=== PATIENT | male | born 1940 | race Caucasian/White ===

== ENCOUNTER 2017-01-13 08:31 | Inpatient (IN) | payer OTHER ==
[~2017-01-13] VITALS: Ht 180.3 cm; Wt 81.9 kg
[~2017-01-13 08:31] MED LIST: ALBU1NEB10 NEB; ALBUAER19 INH; AMLO2.5T2 PO; ATRINSX NEB; BRVIN NEB; CITA40TA12 PO; CLOP1TAB5 PO; CRS/10 PO; FINA5TAB PO; FLUT0.0529; FURO20TA PO; GABA800T PO; GLIM2TAB2 PO; GLY/5 PO; GUAI1TAB55 PO; LISI20TA3 PO; LORA-741 PO; MONT1TAB3 PO; OXGN; PANT1TAB48 PO; PLMINSR25 NEB; PRED-301 PO; PRED10TA PO; SALI1SPR3 NAE; SPRIN/30 INH; WHEAPOW PO
--- NOTE | 2017-01-13 08:50 | EMERGENCY ROOM VISIT NOTE ---
History Report prepared by Yolie: Lucy Smith Under the Supervision of: Dr. Nj Horne M.D. First contact with patient: 08:32 Chief Complaint: RESPIRATORY PROBLEMS Stated Complaint: RESPIRATORY Nursing Triage Summary: pt here from [facility] via [facility]. pt just discharged from [facility] to [facility] yesterday with pneumonia or copd. pt has audible crackles. pt normally wears bipap at night, could not tolerate machine at [facility] so did not wear. upon ems arrival pt was 91% on 3 liters. pt was given duoneb, albuterol, and solumedrol. upon arrival to ed pt is 96% on 3 liters. pt states he feels he was released too soon from [facility] History of Present Illness The patient is a 76 year old male who presents to the Emergency Room with complaints of worsening respiratory problems beginning a couple of weeks ago. The patient reports having pneumonia and COPD and was just released from [place]. He states that this morning he woke up and was having difficulty breathing. He states that he is on Lasix and prednisone, and denies any recent changes in his medication. The patient denies having other symptoms. Source of History: patient Onset: couple of weeks ago Position: other (global) Quality: other (respiratory problems ) Timing: worsening Associated Symptoms: No fevers Review of Systems See HPI for pertinent positives & negatives. A total of 10 systems reviewed and were otherwise negative. 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 Surgical Problems: (1) H/O cervical spine surgery (2) History of aortic valve replacement (3) History of carpal tunnel surgery (4) History of lumbar surgery (5) S/P total knee arthroplasty Family History No pertinent family history Social History Smoking Status: Former Smoker Alcohol Use: none Current/Historical Medications Scheduled Acetylcysteine (Acetylcysteine), 3 ML INH BID Atorvastatin (Lipitor), 20 MG PO DAILYBD Budesonide (Pulmicort Respules 0.25MG/2ML), 0.25 MG INH DAILY Cholecalciferol (Vitamin D3), 6,000 UNITS PO DAILYBB Clopidogrel (Plavix), 75 MG PO DAILY Docusate Sodium (Docusate Sodium), 100 MG PO BID Ferrous Gluconate (Ferrous Gluconate), 324 MG PO BIDM Finasteride (Proscar), 5 MG PO DAILY Fluticasone Propionate (Nasal) (Flonase Allergy Relief), 2 SPRAY LISETTE DAILY Formoterol Fumarate (Perforomist), 20 MCG INH BID Furosemide (Lasix), 40 MG PO DAILY Glimepiride (Glimepiride), 2 MG PO BIDM Guaifenesin La (Guaifenesin Er), 600 MG PO Q12H Insulin Aspart (Novolog Flexpen), 1 DOSE SQ ACHS Levofloxacin (Levaquin), 750 MG PO DAILY Metoprolol Tartrate (Lopressor) (Lopressor), 25 MG PO Q12H Montelukast Sodium (Singulair), 10 MG PO QPM Nicotine (Nicoderm Cq 14MG Patch), 1 PATCH TD DAILY Pantoprazole (Protonix), 40 MG PO DAILYBB Paroxetine (Paxil), 20 MG PO DAILY Prednisone (Prednisone Tab), 20 MG PO UD Pregabalin (Lyrica), 150 MG PO BID Roflumilast (Daliresp), 500 MCG PO DAILY Senna/Docusate Sod (Senokot S), 1 TAB PO HS Umeclidinium [place] (Incruse Ellipta), 62.5 MCG INH DAILY Scheduled PRN Albuterol Hfa (Ventolin Hfa), 2 PUFFS INH Q4H PRN for Shortness of Breath Clonazepam (Klonopin), 0.5 MG PO Q8H PRN for Anxiety Ipratropium-Albuterol (Duoneb), 3 ML INH QID PRN for Shortness of Breath Allergies Coded Allergies: Aspirin (Verified Adverse Reaction, Intermediate, SEVERE GI PAIN, 01/13/17) Physical Exam Vital Signs Date Time Temp Pulse Resp B/P (MAP) Pulse Ox O2 Delivery O2 Flow Rate FiO2 01/13/17 11:00 88 16 118/68 95 Room Air 01/13/17 10:31 72 16 153/96 92 Nasal Cannula 2.0 01/13/17 09:41 77 18 171/79 93 Nasal Cannula 2.0 Non-Rebreather 01/13/17 09:29 83 22 95 Nasal Cannula 2.0 01/13/17 08:52 96 Nasal Cannula 2.0 01/13/17 08:52 96 Nasal Cannula 2.0 01/13/17 08:49 95 01/13/17 08:38 36.5 90 16 174/87 96 Nasal Cannula 2.0 Physical Exam GENERAL: Patient is a healthy-appearing well-nourished male HEAD: Normocephalic atraumatic EYES: Ocular movements intact pupils equal and react to light OROPHARYNX mucous membranes are moist no exudates present no erythema or edema present NECK: Supple no nuchal rigidity CHEST: Good equal expansion LUNGS: diffuse rales on exam CARDIAC: Normal S1 and S2 ABDOMEN: Soft nontender no guarding BACK: No CVA tenderness EXTREMITIES: No pain upon palpation normal muscle strength in all groups no clubbing cyanosis or edema NEURO: Patient is following commands and answering questions appropriately. Alert and oriented x3 Cranial Nerves 2-12 grossly intact Medical Decision & Procedures ER Provider Diagnostic Interpretation: X-ray results as stated below per interpretation by me and the radiologist: CHEST ONE VIEW PORTABLE CLINICAL HISTORY: Shortness of breath and cough COMPARISON STUDY: 12/17/2012 FINDINGS: There are postsurgical changes of a midline sternotomy. The right-sided PICC catheter has been removed. There is pulmonary emphysema. There are left mid to lower lung zone airspace opacities, suspicious for a pneumonia. Clinical and radiographic follow-up is recommended.[ IMPRESSION: 1. Emphysema 2. Patchy airspace opacities at the left lung base, suspicious for a pneumonia. Repeat imaging subsequent to treatment is recommended in follow-up. Electronically signed by: Sky Joyce M.D. 01/13/2017 8:56 AM Dictated Date/Time: 01/13/2017 8:54 AM Radiology results as stated below per my review and radiologist interpretation: (CHEST FOR PE) ANGIO WITH CLINICAL HISTORY: 76 years-old Male presenting with shortness of breath and clinical concern for pulmonary embolus. TECHNIQUE: Multidetector CT angiography of the chest was performed after administration of intravenous contrast. 3-D volumetric and/or maximum intensity projection (MIP) images were subsequently reconstructed for review. IV contrast: 119 mL of Optiray 320. A dose lowering technique was used consistent with the principles of ALARA (as low as reasonably achievable). COMPARISON: Chest x-ray performed earlier the same day. CT DOSE (mGy.cm): The estimated cumulative dose is 412.83 mGy.cm. FINDINGS: Finance Business Partner topogram: Median sternotomy wires. Pulmonary vasculature: The study is adequate for assessment of the pulmonary vascular tree. No filling defect within the pulmonary arteries to suggest embolus. Main pulmonary artery not enlarged. No flattening of the interventricular septum. No intracardiac filling defect. Remaining chest: On soft tissue windows, normal thyroid and thoracic inlet. No axillary, supraclavicular, hilar, or mediastinal lymphadenopathy. Atherosclerosis of the aortic arch and major branch vessels. Common origin of the innominate and left common carotid arteries. Normal heart size. Prosthetic aortic valve. No pericardial or pleural effusion. Cholecystectomy clips. Biliary ductal dilatation centrally both intrahepatic and involving the common duct, possibly a reservoir effect in the post cholecystectomy state. Pancreatic parenchymal calcifications may indicate chronic pancreatitis. On lung windows, moderate apical predominant emphysema. Dependent consolidation in the left lower lobe and along the major fissure in the left upper lobe. Numerous scattered nodular opacities also noted elsewhere in the left lower lobe and to a lesser degree in the lingula. Solid pulmonary nodule at the dependent portion of the right lower lobe measuring 13 mm (series 4 image 64). Minimal subpleural reticulation also noted in the dependent portions of the right lower lobe. Old calcified granuloma noted at the right apex. Debris noted in the trachea and bilateral main stem bronchi. Diffuse bronchial wall thickening. On bone windows, degenerative changes of the thoracic spine. Well-healed sternotomy. IMPRESSION: 1. No evidence of pulmonary embolus. 2. Findings most consistent with multifocal pneumonia predominant involving the left lower lobe and to a lesser degree the lingula. The dependent distribution in combination with significant debris in the trachea and bilateral mainstem bronchi could suggest aspiration pneumonia as etiology. 3. Moderate apical predominant emphysema with associated bronchial wall thickening. 4. Solid 13 mm pulmonary nodule at the right lower lobe may be another site of infection/pneumonia. However, follow-up after treatment to ensure resolution is recommended. Electronically signed by: Avel Raman M.D. 01/13/2017 10:56 AM Dictated Date/Time: 01/13/2017 10:47 AM Laboratory Results 01/13/17 09:04 Red Blood Count 5.21, Mean Corpuscular Volume 89.3, Mean Corpuscular Hemoglobin 29.8, Mean Corpuscular Hemoglobin Concent 33.3, Mean Platelet Volume 11.0 01/13/17 09:04 Test 01/13/17 09:04 01/13/17 11:40 White Blood Count 16.12 K/uL (4.8-10.8) Red Blood Count 5.21 M/uL (4.7-6.1) Hemoglobin 15.5 g/dL (14.0-18.0) Hematocrit 46.5 % (42-52) Mean Corpuscular Volume 89.3 fL (80-100) Mean Corpuscular Hemoglobin 29.8 pg (25-34) Mean Corpuscular Hemoglobin Concent 33.3 g/dl (32-36) Platelet Count 274 K/uL (130-400) Mean Platelet Volume 11.0 fL (7.4-10.4) RDW Standard Deviation 51.7 fL (36.4-46.3) RDW Coefficient of Variation 15.8 % (11.5-14.5) Neutrophils % (Manual) 82.6 % Lymphocytes % (Manual) 7.0 % Monocytes % (Manual) 8.7 % Myelocytes % 1.7 % Neutrophils # (Manual) 13.32 K/uL (1.4-6.5) Total Absolute Neutrophils 13.32 K/uL (1.4-6.5) Lymphocytes # (Manual) 1.13 K/uL (1.2-3.4) Total Absolute Lymphocytes 1.13 K/uL (1.2-3.4) Monocytes # (Manual) 1.40 K/uL (0.11-0.59) Myelocytes # 0.27 K/uL (0-0) Red Blood Cell Morphology Unremarkable Prothrombin Time 11.2 SECONDS (9.0-12.0) Prothromb Time International Ratio 1.0 (0.9-1.1) Anion Gap 7.0 mmol/L (3-11) Est Creatinine Clear Calc Drug Dose 62.7 ml/min Estimated GFR () 76.2 Estimated GFR (Non- 65.8 BUN/Creatinine Ratio 21.8 (10-20) Calcium Level 9.1 mg/dl (8.5-10.1) Total Bilirubin 0.6 mg/dl (0.2-1) Aspartate Amino Transf (AST/SGOT) 36 U/L (15-37) Alanine Aminotransferase (ALT/SGPT) 68 U/L (12-78) Alkaline Phosphatase 297 U/L (45-117) Total Creatine Kinase 20 U/L (39-308) Creatine Kinase MB 2.1 ng/ml (0.5-3.6) Creatine Kinase MB Ratio 10.5 (0-3.0) Troponin I 0.034 ng/ml (0-0.045) Pro-B-Type Natriuretic Peptide 441 pg/ml (0-900) Total Protein 6.5 gm/dl (6.4-8.2) Albumin 3.1 gm/dl (3.4-5.0) Globulin 3.4 gm/dl (2.5-4.0) Albumin/Globulin Ratio 0.9 (0.9-2) Urine Color YELLOW Urine Appearance CLEAR (CLEAR) Urine pH 6.0 (4.5-7.5) Urine Specific [place] 1.025 (1.000-1.030) Urine Protein NEG (NEG) Urine Glucose (UA) NEG (NEG) Urine Ketones NEG (NEG) Urine Occult Blood NEG (NEG) Urine Nitrite NEG (NEG) Urine Bilirubin NEG (NEG) Urine Urobilinogen NEG (NEG) Urine Leukocyte Esterase SMALL (NEG) Urine WBC (Auto) 1-5 /hpf (0-5) Urine RBC (Auto) 0-4 /hpf (0-4) Urine Hyaline Casts (Auto) 1-5 /lpf (0-5) Urine Epithelial Cells (Auto) 5-10 /lpf (0-5) Urine Bacteria (Auto) NEG (NEG) Labs reviewed by ED physician. Medications Administered Medications (Trade) Dose Ordered Sig/Aj Route Start Time Stop Time Status Last Admin Dose Admin Piperacillin Sod/ Tazobactam Sod (Zosyn Iv) 4.5 gm NOW STAT IV 01/13/17 09:01 01/13/17 09:03 DC 01/13/17 09:32 4.5 GM Vancomycin HCl 1000 mg/Sodium Chloride 270 ml @ 125 mls/hr NOW STAT IV 01/13/17 09:01 01/13/17 11:10 DC 01/13/17 10:29 125 MLS/HR Furosemide (Lasix Inj) 40 mg NOW STAT IV 01/13/17 09:01 01/13/17 09:03 DC 01/13/17 09:31 40 MG Levalbuterol (Xopenex 1.25MG/ 0.5ML Neb) 1.25 mg NOW STAT INH 01/13/17 09:01 01/13/17 09:03 DC 01/13/17 09:29 1.25 MG Levofloxacin (Levaquin / D5W) 750 mg NOW STAT IV 01/13/17 09:51 01/13/17 09:52 DC 01/13/17 13:06 750 MG ECG Indication: SOB/dyspnea Rate (beats per minute): 93 Rhythm: sinus rhythm Findings: RBBB, no acute ischemic change ED Course 0848: Past medical records reviewed. The patient was evaluated in room B4B. A complete history and physical examination was performed. 0901: Ordered Levalbuterol 1.25 mg INH, Furosemide 40 mg IV, Vancomycin HCl 1, 000 mg/Sodium Chloride 270 ml @ 125 mls/hr IV, Piperacillin Sod/Tazobactam Sod 4.5 gm IV. 0951: Ordered Levofloxacin 750 mg IV. 1106: I discussed the patient's case with Lorraine Bran PA-C, she has agreed to evaluate the patient for further management and care. Medical Decision Differential diagnosis: Etiologies such as infections, reactive airway disease, pneumonia, pneumothorax , COPD, CHF, cardiac ischemia, pulmonary embolism, musculoskeletal, gastrointestinal, as well as others were entertained. This is a 76-year-old male who presents emergency department after recently being released from [place]. The patient is still continue continuing to complain of shortness of breath and appears to have pneumonia on his chest x- ray. He was sent for CAT scan of the chest which did not show any evidence of PE. He was pancultured up started on Zosyn and Levaquin and vancomycin. He is also given an hour-long breathing treatment and Lasix. I did discuss the case with the hospitalist service who agreed to admit the patient. Patient was in agreement with the treatment plan. Medication Reconcilliation Current Medication List: was personally reviewed by me Blood Pressure Screening Patient's blood pressure: Elevated blood pressure Blood pressure disposition: Referred to PCP Consults Time Called: 1030 Consulting Physician: Lorraine Bran PA-C Returned Call: [phone] I discussed the patient's case with Lorraine Bran PA-C, she has agreed to evaluate the patient for further management and care. Impression Primary Impression: Pneumonia Scribe Attestation The scribe's documentation has been prepared under my direction and personally reviewed by me in its entirety. I confirm that the note above accurately reflects all work, treatment, procedures, and medical decision making performed by me. Departure Information Dispostion Being Evaluated By Hospitalist Referrals Mariah Resendez D.O. (PCP) Patient Instructions My [facility] Problem Qualifiers Primary Impression: Pneumonia Pneumonia type: due to unspecified organism Laterality: unspecified laterality Lung location: unspecified part of lung Qualified Codes: J18.9 - Pneumonia, unspecified organism
--- NOTE | 2017-01-13 08:57 | DIAGNOSTIC IMAGING REPORT ---
CHEST ONE VIEW PORTABLE CLINICAL HISTORY: Shortness of breath and cough COMPARISON STUDY: 12/17/2012 FINDINGS: There are postsurgical changes of a midline sternotomy. The right-sided PICC catheter has been removed. There is pulmonary emphysema. There are left mid to lower lung zone airspace opacities, suspicious for a pneumonia. Clinical and radiographic follow-up is recommended.[ IMPRESSION: 1. Emphysema 2. Patchy airspace opacities at the left lung base, suspicious for a pneumonia. Repeat imaging subsequent to treatment is recommended in follow-up. Electronically signed by: Sky Joyce M.D. 01/13/2017 8:56 AM Dictated Date/Time: 01/13/2017 8:54 AM
[2017-01-13] MEDS ORDERED: FUROSEMIDE 40 MG/4 ML VIAL IV STA (09:01)
[2017-01-13] MEDS ORDERED: VANCOMYCIN INJ 1,000 MG in SODIUM CHLORIDE 0.9% 250ML 250 ML IV STA (09:01)
[2017-01-13] MEDS ORDERED: LEVALBUTEROL 1.25MG/0.5ML NEB INH STA (09:01)
[2017-01-13] MEDS ORDERED: PIPERACILLIN/TAZOBACTAM 4.5 GM/100ML D5W IV STA (09:01)
[2017-01-13] MEDS ORDERED: OPTIRAY 320 IV PRN (09:15)
[2017-01-13] MEDS ORDERED: ACET20SO4 INH (09:22)
[2017-01-13] MEDS ORDERED: PLMINSR25 INH (09:22)
[2017-01-13] MEDS ORDERED: FRS/40 PO (09:22)
[2017-01-13] MEDS ORDERED: FLUT0.15 NAE (09:22)
[2017-01-13] MEDS ORDERED: CHOL2000 PO (09:22)
[2017-01-13] MEDS ORDERED: FORM1NEB INH (09:22)
[2017-01-13] MEDS ORDERED: FERR325T18 PO (09:22)
[2017-01-13] MEDS ORDERED: FINA5TAB PO (09:22)
[2017-01-13] MEDS ORDERED: CLOP1TAB15 PO (09:22)
[2017-01-13] MEDS ORDERED: SENN-65 PO (09:22)
[2017-01-13] MEDS ORDERED: GLIM2TAB2 PO (09:22)
[2017-01-13] MEDS ORDERED: ATOR-22 PO (09:22)
[2017-01-13] MEDS ORDERED: GUAI1TAB75 PO (09:22)
[2017-01-13] MEDS ORDERED: DOCU100C31 PO (09:22)
[2017-01-13 09:29] VITALS: PULSE 83; O2SAT 95
[2017-01-13] MEDS ORDERED: PRD5 PO (09:32)
[2017-01-13] MEDS ORDERED: PRED20TA2 PO (09:32)
[2017-01-13] MEDS ORDERED: IPRASOL4 INH (09:32)
[2017-01-13] MEDS ORDERED: PRED10TA PO (09:32)
[2017-01-13] MEDS ORDERED: MONT1TAB3 PO (09:32)
[2017-01-13] MEDS ORDERED: VNTHFA/IN INH (09:32)
[2017-01-13] MEDS ORDERED: LEVO-17 PO (09:32)
[2017-01-13] MEDS ORDERED: METO25TA56 PO (09:32)
[2017-01-13] MEDS ORDERED: NVLGI/PEN SQ (09:32)
[2017-01-13] MEDS ORDERED: PANT1TAB48 PO (09:32)
[2017-01-13] MEDS ORDERED: NICO14DI31 TD (09:32)
[2017-01-13] MEDS ORDERED: PREG1CAP28 PO (09:32)
[2017-01-13] MEDS ORDERED: ROFL1TAB5 PO (09:32)
[2017-01-13] MEDS ORDERED: PARO1TAB27 PO (09:32)
[2017-01-13] MEDS ORDERED: CLON0.5T3 PO (09:32)
[2017-01-13] MEDS ORDERED: UMEC1INH INH (09:32)
[2017-01-13 09:38] LABS: HEMATOCRIT 46.5 % (42-52); MEAN CELL VOLUME 89.3 fL (80-100); MEAN CORPUSCULAR HEMOGLOBIN 29.8 pg (25-34); MEAN CORPUSCULAR HGB CONC 33.3 g/dl (32-36); PLATELET COUNT 274 K/uL (130-400); RED BLOOD COUNT 5.21 M/uL (4.7-6.1); WHITE BLOOD COUNT 16.12 K/uL (4.8-10.8)
[2017-01-13] MEDS ORDERED: LEVAQUIN 750MG / 150ML D5W IV STA (09:51)
[2017-01-13 09:55] LABS: PROTHROMBIN TIME (PATIENT) 11.2 SECONDS (9.0-12.0)
[2017-01-13 09:57] LABS: BUN/CREATININE RATIO 21.8 (10-20); CALCIUM 9.1 mg/dl (8.5-10.1); CREATININE 1.1 mg/dl (0.60-1.40); POTASSIUM 3.6 mmol/L (3.5-5.1)
[2017-01-13 10:02] LABS: ALB/GLOB RATIO 0.9 (0.9-2); CKMB/CK RATIO 10.5 (0-3.0)
[2017-01-13 10:14] LABS: COMPLETE YES; LYMPH ABS # 1.13 K/uL (1.2-3.4); MYELOCYTE % 1.7 %; NEUTROPHILS % 82.6 %
--- NOTE | 2017-01-13 10:57 | DIAGNOSTIC IMAGING REPORT ---
(CHEST FOR PE) ANGIO WITH CLINICAL HISTORY: 76 years-old Male presenting with shortness of breath and clinical concern for pulmonary embolus. TECHNIQUE: Multidetector CT angiography of the chest was performed after administration of intravenous contrast. 3-D volumetric and/or maximum intensity projection (MIP) images were subsequently reconstructed for review. IV contrast: 119 mL of Optiray 320. A dose lowering technique was used consistent with the principles of ALARA (as low as reasonably achievable). COMPARISON: Chest x-ray performed earlier the same day. CT DOSE (mGy.cm): The estimated cumulative dose is 412.83 mGy.cm. FINDINGS: Job Service Consultant topogram: Median sternotomy wires. Pulmonary vasculature: The study is adequate for assessment of the pulmonary vascular tree. No filling defect within the pulmonary arteries to suggest embolus. Main pulmonary artery not enlarged. No flattening of the interventricular septum. No intracardiac filling defect. Remaining chest: On soft tissue windows, normal thyroid and thoracic inlet. No axillary, supraclavicular, hilar, or mediastinal lymphadenopathy. Atherosclerosis of the aortic arch and major branch vessels. Common origin of the innominate and left common carotid arteries. Normal heart size. Prosthetic aortic valve. No pericardial or pleural effusion. Cholecystectomy clips. Biliary ductal dilatation centrally both intrahepatic and involving the common duct, possibly a reservoir effect in the post cholecystectomy state. Pancreatic parenchymal calcifications may indicate chronic pancreatitis. On lung windows, moderate apical predominant emphysema. Dependent consolidation in the left lower lobe and along the major fissure in the left upper lobe. Numerous scattered nodular opacities also noted elsewhere in the left lower lobe and to a lesser degree in the lingula. Solid pulmonary nodule at the dependent portion of the right lower lobe measuring 13 mm (series 4 image 64). Minimal subpleural reticulation also noted in the dependent portions of the right lower lobe. Old calcified granuloma noted at the right apex. Debris noted in the trachea and bilateral main stem bronchi. Diffuse bronchial wall thickening. On bone windows, degenerative changes of the thoracic spine. Well-healed sternotomy. IMPRESSION: 1. No evidence of pulmonary embolus. 2. Findings most consistent with multifocal pneumonia predominant involving the left lower lobe and to a lesser degree the lingula. The dependent distribution in combination with significant debris in the trachea and bilateral mainstem bronchi could suggest aspiration pneumonia as etiology. 3. Moderate apical predominant emphysema with associated bronchial wall thickening. 4. Solid 13 mm pulmonary nodule at the right lower lobe may be another site of infection/pneumonia. However, follow-up after treatment to ensure resolution is recommended. Electronically signed by: Avel Raman M.D. 01/13/2017 10:56 AM Dictated Date/Time: 01/13/2017 10:47 AM
[2017-01-13] MEDS ORDERED: ACETAMINOPHEN 325 MG TAB PO PRN (11:45)
[2017-01-13] MEDS ORDERED: ONDANSETRON INJ 2 MG/ML 2 ML VIAL IV PRN (11:45)
[2017-01-13 11:55] VITALS: O2SAT 95; BMI 25.8
[2017-01-13] MEDS ORDERED: GLUCOSE 40% GEL 15 GM TUBE PO PRN (12:00)
[2017-01-13] MEDS ORDERED: GLUCOSE 10 TABS/TUBE PO PRN (12:00)
[2017-01-13] MEDS ORDERED: ALBUTEROL HFA 8 GM INHALER INH PRN (12:00)
[2017-01-13] MEDS: ALBUT/IPRATROP 3MG/0.5MG NEB 3 ML VIAL INH SCH ×3 (12:00→19:27)
[2017-01-13] MEDS ORDERED: GLUCAGON FOR INJ 1 MG VIAL SQ PRN (12:00)
[2017-01-13] MEDS ORDERED: DEXTROSE 50% 50 ML SYR IV PRN (12:00)
[2017-01-13 12:08] LABS: URINE APPEARANCE CLEAR (CLEAR); URINE BILIRUBIN NEG (NEG); URINE COLOR YELLOW; URINE NITRITE NEG (NEG); URINE SPECIFIC GRAVITY 1.025 (1.000-1.030); UROBILINOGEN NEG (NEG)
[2017-01-13 12:14] LABS: MANUAL MICROSCOPIC REQUIRED? NO; REVIEW REQ? NO
[2017-01-13] MEDS ORDERED: METHYLPREDNISOLONE IV 40 MG in SYRINGE 0 ML IV ONE (12:15)
[2017-01-13] MEDS ORDERED: LEVAQUIN 750MG / 150ML D5W ONE (13:01)
[2017-01-13] MEDS: CLONAZEPAM 0.5 MG TAB PO PRN ×2 (13:20→20:31)
[2017-01-13] MEDS ORDERED: VANCOMYCIN CONSULT ACTIVE SCH (13:54)
[2017-01-13] MEDS ORDERED: PIPERACILL/TAZOBAC CONSULT ACTIVE SCH (13:56)
[2017-01-13 14:20] VITALS: BP 149/93; PULSE 103; TEMP 36.6; O2SAT 94
--- NOTE | 2017-01-13 14:32 | Pharmacy Progress Note ---
Pharmacy Antibiotic Consult Date of Service: Jan 13, 2017. Pharmacy Dosing Scope Pharmacy is consulted to initiate vancomycin IV dosing therapy, order appropriate labs and adjust drug dose/frequency. Subjective The patient is a 76 year old male admitted on Jan 13, 2017 at 11:49. Objective Height (Feet): 5 Height (Inches): 11.00 Weight (Kilograms): 84.000 Lab Results (24hrs): Test 01/13/17 09:04 01/13/17 11:40 White Blood Count 16.12 K/uL (4.8-10.8) Red Blood Count 5.21 M/uL (4.7-6.1) Hemoglobin 15.5 g/dL (14.0-18.0) Hematocrit 46.5 % (42-52) Mean Corpuscular Volume 89.3 fL (80-100) Mean Corpuscular Hemoglobin 29.8 pg (25-34) Mean Corpuscular Hemoglobin Concent 33.3 g/dl (32-36) Platelet Count 274 K/uL (130-400) Mean Platelet Volume 11.0 fL (7.4-10.4) RDW Standard Deviation 51.7 fL (36.4-46.3) RDW Coefficient of Variation 15.8 % (11.5-14.5) Neutrophils % (Manual) 82.6 % Lymphocytes % (Manual) 7.0 % Monocytes % (Manual) 8.7 % Myelocytes % 1.7 % Neutrophils # (Manual) 13.32 K/uL (1.4-6.5) Total Absolute Neutrophils 13.32 K/uL (1.4-6.5) Lymphocytes # (Manual) 1.13 K/uL (1.2-3.4) Total Absolute Lymphocytes 1.13 K/uL (1.2-3.4) Monocytes # (Manual) 1.40 K/uL (0.11-0.59) Myelocytes # 0.27 K/uL (0-0) Red Blood Cell Morphology Unremarkable Prothrombin Time 11.2 SECONDS (9.0-12.0) Prothromb Time International Ratio 1.0 (0.9-1.1) Sodium Level 143 mmol/L (136-145) Potassium Level 3.6 mmol/L (3.5-5.1) Chloride Level 103 mmol/L (98-107) Carbon Dioxide Level 33 mmol/L (21-32) Anion Gap 7.0 mmol/L (3-11) Blood Urea Nitrogen 24 mg/dl (7-18) Creatinine 1.10 mg/dl (0.60-1.40) Est Creatinine Clear Calc Drug Dose 62.7 ml/min Estimated GFR () 76.2 Estimated GFR (Non- 65.8 BUN/Creatinine Ratio 21.8 (10-20) Random Glucose 82 mg/dl (70-99) Calcium Level 9.1 mg/dl (8.5-10.1) Total Bilirubin 0.6 mg/dl (0.2-1) Aspartate Amino Transf (AST/SGOT) 36 U/L (15-37) Alanine Aminotransferase (ALT/SGPT) 68 U/L (12-78) Alkaline Phosphatase 297 U/L (45-117) Total Creatine Kinase 20 U/L (39-308) Creatine Kinase MB 2.1 ng/ml (0.5-3.6) Creatine Kinase MB Ratio 10.5 (0-3.0) Troponin I 0.034 ng/ml (0-0.045) Pro-B-Type Natriuretic Peptide 441 pg/ml (0-900) Total Protein 6.5 gm/dl (6.4-8.2) Albumin 3.1 gm/dl (3.4-5.0) Globulin 3.4 gm/dl (2.5-4.0) Albumin/Globulin Ratio 0.9 (0.9-2) Urine Color YELLOW Urine Appearance CLEAR (CLEAR) Urine pH 6.0 (4.5-7.5) Urine Specific [place] 1.025 (1.000-1.030) Urine Protein NEG (NEG) Urine Glucose (UA) NEG (NEG) Urine Ketones NEG (NEG) Urine Occult Blood NEG (NEG) Urine Nitrite NEG (NEG) Urine Bilirubin NEG (NEG) Urine Urobilinogen NEG (NEG) Urine Leukocyte Esterase SMALL (NEG) Urine WBC (Auto) 1-5 /hpf (0-5) Urine RBC (Auto) 0-4 /hpf (0-4) Urine Hyaline Casts (Auto) 1-5 /lpf (0-5) Urine Epithelial Cells (Auto) 5-10 /lpf (0-5) Urine Bacteria (Auto) NEG (NEG) Assessment & Plan Assessment * 76 yo M discharged yesterday from [facility] now admitted here with HAP / aspiration PNA. Currently receiving Zosyn, vancomycin. * At [place] 01/05-01/12 for COPD exacerbation / PNA. Received ceftriaxone/ azithromycin as an inpatient and was discharged on levofloxacin po * SCr at/near baseline with eCrCL ~ 63 mL/min equating to an estimated vancomycin t1/2 of 12 hr * Goal vancomycin trough 15-20 mcg/mL * Vancomycin 1000 mg (12 mg/kg) administered in ED. Will start ongoing maintenance vancomycin significantly sooner than usual 2nd lower loading dose * Maintenance dose vancomycin at ~15 mg/kg IV q12h * Trough prior to 4th dose of current regimen Plan * Vancomycin 1250 mg IV q12h * Trough 01/15 @ 0330 Pharmacy will continue to follow and will adjust dose/frequency as necessary. Thank you
[2017-01-13] MEDS ORDERED: PIPERACILL/TAZOBAC IV 3.375 GM in DEXTROSE 5% 100ML IV ONE (15:15)
--- NOTE | 2017-01-13 15:16 | History and Physical ---
History & Physical Date & Time of Service: Jan 13, 2017 at 12:12 Chief Complaint: Respiratory Primary Care Physician: Mariah Resendez D.O. History of Present Illness Source: patient, clinic records, usp This is a 76 y/o male with PMH of chronic respiratory failure due to severe COPD , idiopathic sleep related nonobstructive alveolar hypoventilation, hx grade I diastolic dysfunction, hx bicuspid AV with s/p bioprosthetic AVR 03/2014, HTN , DM type 2, anxiety, and other problems listed below who presents to the ED for shortness of breath. Patient was recently admitted to [facility] from 01/05/17 through 01/12/17 (yesterday) for COPD exacerbation due to left upper and lower lobe pneumonia. He was treated with IV ceftriaxone and azithromycin, IV Solu-Medrol, and nebulizer treatments. He tested positive for parainfluenza virus. He was seen by pulmonology. He used BiPAP PRN. Usually on BiPAP HS.Was also seen by psych for increased anxiety and meds were adjusted. Was discharged to [facility] yesterday on Levaquin and prednisone taper. His lungs were clear yesterday per discharge summary and patient states he was feeling better yesterday. Then this morning he became SOB while at rest and was sent to the ED. Also admits to ROSALES and orthopnea. Patient reports feeling better after Xopenex neb in ER. He was also treated with IV Zosyn, Levaquin, vancomycin, and IV Lasix 40 mg. He reports cough has been improving. Sputum is mostly clear but sometimes green. Has associated rhinorrhea. Reports poor PO intake due to low appetite. Denies swallowing difficulty or kya aspiration. Denies fever, chills, chest pain, N/V/D, dysuria, LE edema. Past Medical/Surgical History Medical Problems: (1) Anxiety Status: Chronic (2) BPH (benign prostatic hyperplasia) Status: Chronic (3) Cerebrovascular disease Status: Chronic (4) Chronic pain syndrome Status: Chronic (5) Chronic respiratory failure with hypoxia Status: Chronic (6) COPD, severe Permanent Comment: FEV1 41% in 12/2010 Status: Chronic (7) Depression Status: Chronic (8) Diabetic neuropathy Status: Chronic (9) DM type 2 (diabetes mellitus, type 2) Status: Chronic (10) Dyslipidemia Status: Chronic (11) History of bladder cancer Status: Chronic (12) Hypertension Status: Chronic (13) Idiopathic sleep related nonobstructive alveolar hypoventilation Status: Chronic (14) Mild diastolic dysfunction Permanent Comment: grade I diastolic dysfunction on 2011 [facility] Status: Chronic (15) Peptic ulcer disease Status: Chronic (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 Goodwin, [facility] Status: Chronic (3) History of carpal tunnel surgery Status: Chronic (4) History of lumbar surgery Status: Chronic (5) S/P total knee arthroplasty Permanent Comment: bilateral Status: Chronic Family History No pertinent family history Social History Smoking Status: Former Smoker (quit in 1999. prior 1-1.5 ppd x 20 years) Alcohol Use: none Drug Use: none Housing status: other ([facility]) Immunizations History of Influenza Vaccine: No History of Tetanus Vaccine?: Yes History of Pneumococcal: Yes History of Hepatitis B Vaccine: No Multi-Drug Resistant Organisms History of MDRO: Yes Type of MDRO: MRSA Allergies Coded Allergies: Aspirin (Verified Adverse Reaction, Intermediate, SEVERE GI PAIN, 01/13/17) Home Medications Scheduled Acetylcysteine (Acetylcysteine), 3 ML INH BID Atorvastatin (Lipitor), 20 MG PO DAILYBD Budesonide (Pulmicort Respules 0.25MG/2ML), 0.25 MG INH DAILY Cholecalciferol (Vitamin D3), 6,000 UNITS PO DAILYBB Clopidogrel (Plavix), 75 MG PO DAILY Docusate Sodium (Docusate Sodium), 100 MG PO BID Ferrous Gluconate (Ferrous Gluconate), 324 MG PO BIDM Finasteride (Proscar), 5 MG PO DAILY Fluticasone Propionate (Nasal) (Flonase Allergy Relief), 2 SPRAY LISETTE DAILY Formoterol Fumarate (Perforomist), 20 MCG INH BID Furosemide (Lasix), 40 MG PO DAILY Glimepiride (Glimepiride), 2 MG PO BIDM Guaifenesin La (Guaifenesin Er), 600 MG PO Q12H Insulin Aspart (Novolog Flexpen), 1 DOSE SQ ACHS Levofloxacin (Levaquin), 750 MG PO DAILY Metoprolol Tartrate (Lopressor) (Lopressor), 25 MG PO Q12H Montelukast Sodium (Singulair), 10 MG PO QPM Nicotine (Nicoderm Cq 14MG Patch), 1 PATCH TD DAILY Pantoprazole (Protonix), 40 MG PO DAILYBB Paroxetine (Paxil), 20 MG PO DAILY Prednisone (Prednisone Tab), 20 MG PO UD Pregabalin (Lyrica), 150 MG PO BID Roflumilast (Daliresp), 500 MCG PO DAILY Senna/Docusate Sod (Senokot S), 1 TAB PO HS Umeclidinium [place] (Incruse Ellipta), 62.5 MCG INH DAILY Scheduled PRN Albuterol Hfa (Ventolin Hfa), 2 PUFFS INH Q4H PRN for Shortness of Breath Clonazepam (Klonopin), 0.5 MG PO Q8H PRN for Anxiety Ipratropium-Albuterol (Duoneb), 3 ML INH QID PRN for Shortness of Breath Review of Systems Ten systems reviewed and negative except as noted in HPI. Physical Exam Vital Signs Date Time Temp Pulse Resp B/P (MAP) Pulse Ox O2 Delivery O2 Flow Rate FiO2 01/13/17 12:06 89 16 144/98 95 Room Air 01/13/17 11:00 88 16 118/68 95 Room Air 01/13/17 10:31 72 16 153/96 92 Nasal Cannula 2.0 01/13/17 09:41 77 18 171/79 93 Nasal Cannula 2.0 Non-Rebreather 01/13/17 09:29 83 22 95 Nasal Cannula 2.0 01/13/17 08:52 96 Nasal Cannula 2.0 01/13/17 08:52 96 Nasal Cannula 2.0 01/13/17 08:49 95 01/13/17 08:38 36.5 90 16 174/87 96 Nasal Cannula 2.0 General Appearance: WD/WN, + pertinent finding (alert 76 year old male, appears acutely ill, lying in bed, not in distress) Head: normocephalic, atraumatic Eyes: normal inspection, PERRL, EOMI, sclerae normal ENT: pharynx normal, + pertinent finding (hard of hearing) Neck: supple, trachea midline Respiratory/Chest: no respiratory distress, no accessory muscle use, + rales ( diffuse bilateral), + wheezing, + pertinent finding (+ upper respiratory rattling. speaks in short sentences. saturating well on 2 liters NC. ) Cardiovascular: regular rate, rhythm, normal peripheral pulses Abdomen/GI: normal bowel sounds, non tender, soft Extremities/Musculoskelatal: no calf tenderness, normal capillary refill, no pedal edema Neurologic/Psych: alert, normal mood/affect, oriented x 3, + pertinent finding (no focal deficit on gross examination) Skin: normal color, warm/dry Diagnostics Laboratory Results Results Past 24 Hours Test 01/13/17 09:04 01/13/17 11:40 Range/Units White Blood Count 16.12 4.8-10.8 K/uL Red Blood Count 5.21 4.7-6.1 M/uL Hemoglobin 15.5 14.0-18.0 g/dL Hematocrit 46.5 42-52 % Mean Corpuscular Volume 89.3 80-100 fL Mean Corpuscular Hemoglobin 29.8 25-34 pg Mean Corpuscular Hemoglobin Concent 33.3 32-36 g/dl Platelet Count 274 130-400 K/uL Mean Platelet Volume 11.0 7.4-10.4 fL RDW Standard Deviation 51.7 36.4-46.3 fL RDW Coefficient of Variation 15.8 11.5-14.5 % Neutrophils % (Manual) 82.6 % Lymphocytes % (Manual) 7.0 % Monocytes % (Manual) 8.7 % Myelocytes % 1.7 % Neutrophils # (Manual) 13.32 1.4-6.5 K/uL Total Absolute Neutrophils 13.32 1.4-6.5 K/uL Lymphocytes # (Manual) 1.13 1.2-3.4 K/uL Total Absolute Lymphocytes 1.13 1.2-3.4 K/uL Monocytes # (Manual) 1.40 0.11-0.59 K/uL Myelocytes # 0.27 0-0 K/uL Red Blood Cell Morphology Unremarkable Prothrombin Time 11.2 9.0-12.0 SECONDS Prothromb Time International Ratio 1.0 0.9-1.1 Sodium Level 143 136-145 mmol/L Potassium Level 3.6 3.5-5.1 mmol/L Chloride Level 103 98-107 mmol/L Carbon Dioxide Level 33 21-32 mmol/L Anion Gap 7.0 3-11 mmol/L Blood Urea Nitrogen 24 7-18 mg/dl Creatinine 1.10 0.60-1.40 mg/dl Est Creatinine Clear Calc Drug Dose 62.7 ml/min Estimated GFR () 76.2 Estimated GFR (Non- 65.8 BUN/Creatinine Ratio 21.8 10-20 Random Glucose 82 70-99 mg/dl Calcium Level 9.1 8.5-10.1 mg/dl Total Bilirubin 0.6 0.2-1 mg/dl Aspartate Amino Transf (AST/SGOT) 36 15-37 U/L Alanine Aminotransferase (ALT/SGPT) 68 12-78 U/L Alkaline Phosphatase 297 45-117 U/L Total Creatine Kinase 20 39-308 U/L Creatine Kinase MB 2.1 0.5-3.6 ng/ml Creatine Kinase MB Ratio 10.5 0-3.0 Troponin I 0.034 0-0.045 ng/ml Pro-B-Type Natriuretic Peptide 441 0-900 pg/ml Total Protein 6.5 6.4-8.2 gm/dl Albumin 3.1 3.4-5.0 gm/dl Globulin 3.4 2.5-4.0 gm/dl Albumin/Globulin Ratio 0.9 0.9-2 Microbiology Results 01/13/17 Blood Culture, Received Pending 01/13/17 Blood Culture, Received Pending Diagnostic Radiology CHEST ONE VIEW PORTABLE IMPRESSION: 1. Emphysema 2. Patchy airspace opacities at the left lung base, suspicious for a pneumonia. Repeat imaging subsequent to treatment is recommended in follow-up. (CHEST FOR PE) ANGIO WITH IMPRESSION: 1. No evidence of pulmonary embolus. 2. Findings most consistent with multifocal pneumonia predominant involving the left lower lobe and to a lesser degree the lingula. The dependent distribution in combination with significant debris in the trachea and bilateral mainstem bronchi could suggest aspiration pneumonia as etiology. 3. Moderate apical predominant emphysema with associated bronchial wall thickening. 4. Solid 13 mm pulmonary nodule at the right lower lobe may be another site of infection/pneumonia. However, follow-up after treatment to ensure resolution is recommended. EKG poor data quality, possible sinus rhythm, premature supraventricular complexes, RBBB, T wave abnormality, consider lateral ischemia, when compared to prior EKG in 2012 T wave inversion is more evident in anterolateral leads, premature supraventricular complexes now present, as confirmed by cardiology read Impression Assessment and Plan SHORTNESS OF BREATH CHRONIC HYPOXIC RESPIRATORY FAILURE Due to COPD exacerbation secondary to multifocal pneumonia, health care associated, possible aspiration Has underlying severe COPD and idiopathic sleep related nonobstructive alveolar hypoventilation Afebrile; + leukocytosis WBC 16K (steroids likely contributing); no sign of sepsis Recently treated at [facility] for COPD exacerbation, left upper and lower lobe pneumonia, tested + for parainfluenza virus; treated with ceftriaxone , azithromycin, IV Solu-Medrol, nebs, BiPAP PRN; seen by pulmonology; discharged 01/12/17 on Levaquin and prednisone taper CTA negative for PE, +multifocal pneumonia left lower lobe and to a lesser degree the lingula. The dependent distribution in combination with significant debris in the trachea and bilateral mainstem bronchi could suggest aspiration pneumonia as etiology. + emphysema and bronchial wall thickening, + 13 mm pulm nodule vs. pneumonia RLL Treated with empiric IV abx in ER- Zosyn, Vancomycin, Levaquin; will continue with Zosyn and Vancomycin Blood cultures pending; check sputum culture; MRSA nasal swab IV Solu-Medrol 40 mg TID; Duoneb QID and PRN Continue budesonide and formoterol nebs, acetylcysteine, Incruse Ellipta inhaler , Singulair, Daliresp Speech evaluation requested; aspiration precautions Consult pulmonology Continue chronic O2 2 liters nasal cannula, BiPAP HS HX MILD DIASTOLIC DYSFUNCTION/ HX S/P AVR 03/201414 Grade I diastolic dysfunction seen on 2011 echo; 03/2014 echo showed EF 65-69%, diastolic function not assessed; echo 07/2015 was technically limited Thought to be fluid overloaded in ER- given Lasix 40 mg IV; however no evidence of pulm edema on imaging, pro-BNP WNL; not overtly fluid overloaded on exam Continue home dose of Lasix 40 mg PO daily Consider checking echo, this was ordered at [facility] but no results in Epic HYPERTENSION BP is elevated intermittently Continue metoprolol DM TYPE 2 A1c 7.3 in 10/2016 Hold glimepiride Novolog sliding scale CEREBROVASCULAR DISEASE Continue Plavix, statin ANXIETY/ DEPRESSION Controlled currently; meds recently adjusted by psychiatry at [facility] Continue Paxil and PRN Klonopin ? PULMONARY NODULE CTA chest- Solid 13 mm pulmonary nodule at the right lower lobe may be another site of infection/pneumonia. However, follow-up after treatment to ensure resolution is recommended. DVT PROPHYLAXIS Lovenox SQ CODE STATUS DNR per my discussion with the patient. Does not want CPR in case of cardiac arrest. However if pulmonary status worsens he states he would be acceptable to being intubated and going on a ventilator temporarily. Does not want to be on a ventilator for prolonged time. Daughter Zulma is POA ([phone]). DISPO Admission med/ surg Presented from [facility] PT, OT, social service consults requested Patient seen in collaboration with Dr. Love. Please see his addendum. Attending Addendum Pt was seen and examined. Agreed with Rubi ALVARADO assessment and plan. 76 y/o male with PMH of chronic respiratory failure due to severe COPD, idiopathic sleep related nonobstructive alveolar hypoventilation, hx grade I diastolic dysfunction, hx bicuspid AV with s/p bioprosthetic AVR 03/2014, HTN, DM type 2, anxiety, recently discharged at [place] for pnemonia presents to the ED for worsening shortness of breath. General- No acute distress Head- atraumatic Eyes- PERRL, EOMI ENT- oropharynx clear Neck- supple, no JVD Lungs- crackles Heart- regular rhythm Abdomen- normal bowel sounds, soft, nontender SHORTNESS OF BREATH CHRONIC HYPOXIC RESPIRATORY FAILURE Due to COPD exacerbation secondary to multifocal pneumonia, health care associated, possible aspiration Has underlying severe COPD and idiopathic sleep related nonobstructive alveolar hypoventilation Recently discharge from [facility] for COPD exacerbation, left upper and lower lobe pneumonia, tested + for parainfluenza virus; treated with ceftriaxone, azithromycin, IV Solu-Medrol, nebs, BiPAP PRN; seen by pulmonology ; and was d/c on Levaquin and prednisone taper CTA chest showed multifocal pneumonia left lower lobe and to a lesser degree the lingula. Will start on IV Zosyn, vanco Continue IV Solu-Medrol 40 mg TID and Duoneb QID On budesonide and formoterol nebs, acetylcysteine, Incruse Ellipta inhaler, Singulair, Daliresp pulmonology consulted will consult speech for aspiration risk Continue chronic O2 2 liters nasal cannula, BiPAP HS Lab, imaging reviewed Please refer to Rubi ALVARADO documentation for other problems. Raphael Love MD VTE Prophylaxis VTE Risk Assessment Done? Y/N: Yes Risk Level: Moderate
[2017-01-13 16:00] VITALS: O2SAT 94
[2017-01-13 16:22] VITALS: PULSE 85; O2SAT 96
[2017-01-13] MEDS: VANCOMYCIN INJ 1,250 MG in SODIUM CHLORIDE 0.9% 250ML 250 ML IV SCH (16:56)
[2017-01-13] MEDS: ATORVASTATIN 20 MG TAB PO SCH (16:59)
[2017-01-13] MEDS: FERROUS GLUCONATE 324 MG TAB PO SCH (18:14)
[2017-01-13] MEDS: INSULIN ASPART 100 UNITS/ML 3 ML PEN SC SCH ×2 (18:20→20:43)
[2017-01-13] MEDS: FORMOTEROL FUMA NEBULIZER SOLN 20 MCG/2 ML VIAL INH SCH (19:29)
[2017-01-13 19:30] VITALS: PULSE 89; O2SAT 95
[2017-01-13] MEDS: ACETYLCYSTEINE 20% INHAL SOLN ***DISPENSED BY RESP. INH SCH (19:30)
[2017-01-13] MEDS: BUDESONIDE 0.25 MG/2 ML VIAL (PULMICORT) INH SCH (19:30)
[2017-01-13] MEDS: TRAMADOL HCL 50 MG TAB PO PRN (20:30)
[2017-01-13] MEDS: PREGABALIN 150 MG CAP PO SCH (20:31)
[2017-01-13] MEDS: GUAIFENESIN 600 MG TABCR PO SCH (20:31)
[2017-01-13] MEDS: DOCUSATE SODIUM/SENNA 50/8.6MG TAB PO SCH (20:32)
[2017-01-13] MEDS: METOPROLOL TARTRATE 25 MG TAB PO SCH (20:32)
[2017-01-13] MEDS: MONTELUKAST SOD 10 MG TAB PO SCH (20:33)
[2017-01-13] MEDS: ENOXAPARIN 40 MG/0.4 ML SYR SQ SCH (20:34)
[2017-01-13] MEDS: DOCUSATE SODIUM 100 MG CAP PO SCH (20:34)
[2017-01-13] MEDS: METHYLPREDNISOLONE IV 40 MG in SYRINGE 0 ML IV SCH (21:53)
[2017-01-13] MEDS: PIPERACILL/TAZOBAC IV 3.375 GM in DEXTROSE 5% 100ML IV SCH (23:23)
[2017-01-14] VITALS (8 sets, daily range): BP systolic 119–161; BP diastolic 73–94; PULSE 51–86; TEMP 36.1–36.8; O2SAT 92–98; Ht 180.3 cm; Wt 81.9 kg
[2017-01-14] MEDS: VANCOMYCIN INJ 1,250 MG in SODIUM CHLORIDE 0.9% 250ML 250 ML IV SCH ×2 (04:01→16:31)
[2017-01-14 05:58] LABS: HEMATOCRIT 42.8 % (42-52); MEAN CELL VOLUME 88.2 fL (80-100); MEAN CORPUSCULAR HEMOGLOBIN 29.3 pg (25-34); MEAN CORPUSCULAR HGB CONC 33.2 g/dl (32-36); MEAN PLATELET VOLUME 10.7 fL (7.4-10.4); PLATELET COUNT 232 K/uL (130-400); RED BLOOD COUNT 4.85 M/uL (4.7-6.1); WHITE BLOOD COUNT 10.58 K/uL (4.8-10.8)
[2017-01-14] MEDS ORDERED: LEVAQUIN 750MG / 150ML D5W IV ONE (06:00)
[2017-01-14] MEDS: METHYLPREDNISOLONE IV 40 MG in SYRINGE 0 ML IV SCH ×3 (06:03→22:21)
[2017-01-14] MEDS: CHOLECALCIFEROL 1000 INTER.UNIT TAB PO SCH (06:04)
[2017-01-14] MEDS: PANTOprazole SOD 40 MG TAB PO SCH (06:05)
[2017-01-14 06:43] LABS: BUN/CREATININE RATIO 21.4 (10-20); CALCIUM 8.8 mg/dl (8.5-10.1); CREATININE 1.4 mg/dl (0.60-1.40); POTASSIUM 3.7 mmol/L (3.5-5.1)
[2017-01-14] MEDS: FORMOTEROL FUMA NEBULIZER SOLN 20 MCG/2 ML VIAL INH SCH ×2 (07:08→19:06)
[2017-01-14] MEDS: ALBUT/IPRATROP 3MG/0.5MG NEB 3 ML VIAL INH SCH ×4 (07:08→19:05)
[2017-01-14] MEDS: ACETYLCYSTEINE 20% INHAL SOLN ***DISPENSED BY RESP. INH SCH ×2 (07:09→19:06)
[2017-01-14] MEDS: BUDESONIDE 0.25 MG/2 ML VIAL (PULMICORT) INH SCH ×2 (07:09→19:06)
[2017-01-14] MEDS: PIPERACILL/TAZOBAC IV 3.375 GM in DEXTROSE 5% 100ML IV SCH ×2 (07:56→16:30)
[2017-01-14] MEDS: METOPROLOL TARTRATE 25 MG TAB PO SCH ×2 (07:56→20:42)
[2017-01-14] MEDS: PREGABALIN 150 MG CAP PO SCH ×2 (07:56→20:42)
[2017-01-14] MEDS: FERROUS GLUCONATE 324 MG TAB PO SCH ×2 (07:56→18:08)
[2017-01-14] MEDS: CLOPIDOGREL BISULFATE 75 MG TAB PO SCH (07:56)
[2017-01-14] MEDS: DOCUSATE SODIUM 100 MG CAP PO SCH ×2 (07:56→20:00)
[2017-01-14] MEDS: FINASTERIDE 5 MG TAB PO SCH (07:56)
[2017-01-14] MEDS: FUROSEMIDE 40 MG TAB PO SCH (07:56)
[2017-01-14] MEDS: PAROXETINE 20 MG TAB PO SCH (07:56)
[2017-01-14] MEDS: GUAIFENESIN 600 MG TABCR PO SCH ×2 (07:56→20:42)
[2017-01-14] MEDS: ROFLUMILAST 500 MCG TAB PO SCH (07:56)
[2017-01-14] MEDS: FLUTICASONE PROPIONATE NA SPR 16 GM BTL NAE SCH (07:56)
[2017-01-14] MEDS: NICOTINE 14 MG/24 HR TDSY TD SCH (07:57)
[2017-01-14] MEDS ORDERED: BUDESONIDE 0.25 MG/2 ML VIAL (PULMICORT) INH SCH (08:00)
[2017-01-14] MEDS: INSULIN ASPART 100 UNITS/ML 3 ML PEN SC SCH ×4 (08:02→22:24)
--- NOTE | 2017-01-14 08:02 | Clinical Documentation Query ---
CLINICAL DOCUMENTATION QUERY 76 year old male with hx of COPD and chronic respiratory failure presents with SOB and currently being treated for possible aspiration pneumonia. In your clinical opinion is this patient being managed for: ( ) Acute and chronic hypoxic respiratory failure evidenced by SOB and increase in O2 requirement. ( ) Other explanation of clinical findings (Please Explain) ( ) Unable to determine (Please Define) ( ) Need to Discuss ( ) Not Agree The medical record reflects the following clinical findings, treatment, and risk factors. Clinical Indicators: Per EMS on their arrival patient was 91% on 3L NC. H&P notes patient as having rales and wheezes and speaking in short sentences. Nursing notes patient is extremely SOB with very little exertion and unable to feed self due to exhaustion. Treatment: O2, hour long breathing rx, IV Zosyn, Vancomycin, Levaquin, IV solumedrol, telemetry Risk Factors: Age, COPD, chronic respiratory failure, underlying pneumonia. Query #2/2 In your clinical opinion is this patient being managed for: ( ) Chronic diastolic/preserved EF CHF treated with Lasix ( ) Other explanation of clinical findings (Please Explain) ( ) Unable to determine (Please Define) ( ) Need to Discuss ( ) Not Agree The medical record reflects the following clinical findings, treatment, and risk factors. Clinical Indicators: H&P notes this patient has grade I diastolic dysfunction. He is on Lasix as outpatient. Treatment: Lasix, telemetry, I/O's, daily weights Risk Factors: Age, diastolic dysfunction, AVR, HTN Please clarify and document your clinical opinion in the progress notes and discharge summary. Terms such as "probable", "suspected", "likely", "questionable", "possible", or "still to be ruled out" are acceptable. IF IN AGREEMENT, YOU MUST DOCUMENT ABOVE DIAGNOSTIC STATEMENT IN DAILY PROGRESS NOTES AND DISCHARGE SUMMARY. This document is not part of the patient's record. Thank You, Richard Murray, JERMAIN [phone]
[2017-01-14] MEDS ORDERED: LEVOFLOXACIN / D5W 750 MG in PREMIXED IN D5W 150 ML IV SCH (09:00)
[2017-01-14 10:57] LABS: LEGIONELLA ANTIGEN NOT DETECTED (NOT DETECTED)
[2017-01-14] MEDS: TRAMADOL HCL 50 MG TAB PO PRN ×2 (11:18→20:44)
--- NOTE | 2017-01-14 11:57 | Pulmonary Consultation ---
History General Date of Service: Jan 14, 2017. Stated Complaint: Aspiration Pneumonia HPI The patient is a 76 year old male who presents to [facility] with complaints of Aspiration Pneumonia. The patient's primary care provider is Susannah Salguero. Mr. 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 He states that he has been admitted for COPD exacerbation 3 times a year. Last admission was at [facility] from 01/05/2017 to 01/12/2017. He was treated for left upper and lower lobe pneumonia, secondary to parainfluenza virus for which she tested positive for. He received IV ceftriaxone and azithromycin. He was discharged to [facility] on Levaquin and prednisone taper. Per medical record he was feeling better and his lungs were clear to auscultation however he became increasingly more short of breath while at rest and was transferred to the emergency room for further evaluation. In the ER his initial vital signs were pulse was 83, respiratory rate 22, 95% on 2 L nasal cannula and a blood pressure of 171/79. Patient also notes that he has had productive cough of whitish sputum that has improved. He denies any fevers, chills, chest pain, lower extremity edema. He does have some orthopnea and dyspnea on exertion. His exercise tolerance is a few feet with walker. He also admits to decreased appetite and chronic upper back pain. His initial white blood cell count was 16, hemoglobin 15, platelet count 274. His coags were within normal limits. Comprehensive metabolic panel was significant for a carbon dioxide level of 33, creatinine was 1.1, troponin was 0.034, proBNP 441. His chest x-ray on admission. 01/12/2017 showed emphysema as well as patchy airspace based disease at the left lung base suspicious for pneumonia. A CT of chest was done to rule out pulmonary embolism and showed no pulmonary embolism however was consistent with a multifocal pneumonia involving left lower lobe and lingula. There was significant debris in the trachea and bilateral main stem bronchi suggestive of aspiration. There was also emphysema with bronchial wall thickening. There was also a solid 1.3 cm and pulmonary nodule at the right lower lobe. He received IV Zosyn, vancomycin, Levaquin, and IV Lasix. He was admitted to hospital for COPD exacerbation and healthcare associated pneumonia. Blood cultures sent on 01/13/2017 are still pending. Legionella antigen is negative. His pulmonary medications include budesonide 0.25 mg inhalation daily, formoterol 20 g inhalation twice a day, Singulair 10 mg by mouth every afternoon, nicotine patch, acetylcysteine 2 mL inhalation twice a day, guaifenesin 600 mg every 12 hours, prednisone 20 mg by mouth, Umeclidinium ( incruse ellipta 62.5 mcg inh daily, Lasix 40 mg by mouth daily and fluticasone nasal spray 2 sprays each nostril daily. He is also on albuterol HFA 2 puffs inhalation every 4 hours when necessary as well as DuoNeb 4 times a day when necessary. He was also on Levaquin 750 mg by mouth daily. Today he states shes feeling somewhat better. He has less rumbling in his chest. His vital signs in the last 24 hours MAXIMUM TEMPERATURE of 36.8, blood pressure 161/94 to 122 over and 77, pulse 58-82, respiratory rate 18-22, pulse ox between 94-98 on 2 L nasal cannula. White blood cell count is now down to 10 today. Historian: patient Onset: last week Severity: moderate Complaint Status: improved Review of Systems Constitutional: reports: as stated in HPI Eyes: reports: as stated in HPI ENT: reports: as stated in HPI Cardiovascular: reports: as stated in HPI Respiratory: reports: as stated in HPI, denies: cyanosis, hemoptysis Gastrointestinal: reports: as stated in HPI Genitourinary - Male: reports: as stated in HPI Musculoskeletal: reports: back pain, joint pain Integumentary: reports: as stated in HPI Neurologic: reports: as stated in HPI Psychiatric: reports: as stated in HPI Endocrine: as stated in HPI Hematologic / Lymphatic: as stated in HPI Allergic / Immunologic: as stated in HPI Past Medical History Past Medical History: Severe COPD Diabetes 2 Diabetic neuropathy Dyslipidemia History of bladder cancer Hypertension Idiopathic sleep-related nonobstructive alveolar hypoventilation Diastolic dysfunction Peptic ulcer disease DollingerEllison syndrome Chronic back pain BPH Anxiety CVA Past Surgical History: Cervical spine surgery [facility] Lumbar surgery bilateral total knee arthroplasties Family History No pertinent family history Noncontributory Social History He is a former smoker if it 1-1.5 packs per day for 20 years, he quit in year 1999. Current tobacco chewer he states he quit about 10 days ago. He denies any alcohol or illicit drug use. He used to work in [employer]. Hx Tobacco Use In Past Year?: No Smoking Status: Former Smoker (quit in 1999. prior 1-1.5 ppd x 20 years) Housing status: other ([facility]) Immunizations History of Influenza Vaccine: No History of Tetanus Vaccine?: Yes History of Pneumococcal: Yes History of Hepatitis B Vaccine: No History of MDRO History of MDRO: Yes Type of MDRO: MRSA Allergies Coded Allergies: Aspirin (Verified Adverse Reaction, Intermediate, SEVERE GI PAIN, 01/13/17) Current Medications Reported Home Medications Medications Dose Route/Sig Max Daily Dose Days Date Category Dose Instructions Klonopin (Clonazepam) 0.5 Mg Tab 0.5 Mg PO Q8H PRN 01/13/17 Reported Duoneb (Ipratropium-Albuterol) 3 Ml Nebu 3 Ml INH QID PRN 01/13/17 Reported Ventolin Hfa (Albuterol) 200 Puffs/90228 Mcg Aers 2 Puffs INH Q4H PRN 01/13/17 Reported Incruse Ellipta (Umeclidinium [place]) 62.5 Mcg/Inh Inh 62.5 Mcg INH DAILY 01/13/17 Reported Daliresp (Roflumilast) 500 Mcg Tab 500 Mcg PO DAILY 01/13/17 Reported Lyrica (Pregabalin) 75 Mg Cap 150 Mg PO BID 01/13/17 Reported PT TAKES X2 75MG TABS FOR 150MG DOSE Prednisone Tab (Prednisone) 20 Mg Tab 20 Mg PO UD 01/13/17 Reported Taper as directed Paxil (Paroxetine HCl) 20 Mg Tab 20 Mg PO DAILY 01/13/17 Reported Protonix (Pantoprazole) 40 Mg Tab 40 Mg PO DAILYBB 01/13/17 Reported Nicoderm Cq 14MG Patch (Nicotine) 14 Mg/24 Hr Dis 1 Patch TD DAILY 01/13/17 Reported Singulair (Montelukast Sodium) 10 Mg Tab 10 Mg PO QPM 01/13/17 Reported Lopressor (Metoprolol Tartrate) 25 Mg Tab 25 Mg PO Q12H 01/13/17 Reported Levaquin (Levofloxacin) 250 Mg Tab 750 Mg PO DAILY 01/13/17 Reported Novolog Flexpen (Insulin Aspart) 100 Units/Ml Inj 1 Dose SQ ACHS 01/13/17 Reported PER SLIDING SCALE Guaifenesin Er (Guaifenesin) 600 Mg Tabcr 600 Mg PO Q12H 01/13/17 Reported Glimepiride 2 Mg Tab 2 Mg PO BIDM 01/13/17 Reported Lasix (Furosemide) 40 Mg Tab 40 Mg PO DAILY 01/13/17 Reported Perforomist (Formoterol Fumarate) 20 Mcg/2 Ml Neb 20 Mcg INH BID 01/13/17 Reported Flonase Allergy Relief (Fluticasone Propionate (Nasal)) 50 Mcg/Act Spr 2 [place] LISETTE DAILY 01/13/17 Reported Proscar (Finasteride) 5 Mg Tab 5 Mg PO DAILY 01/13/17 Reported Ferrous Gluconate 324 Mg Tab 324 Mg PO BIDM 01/13/17 Reported Senokot S (Senna/Docusate Sodium) 1 Tab Tab 1 Tab PO HS 01/13/17 Reported Docusate Sodium 100 Mg Cap 100 Mg PO BID 01/13/17 Reported Plavix (Clopidogrel Bisulfate) 75 Mg Tab 75 Mg PO DAILY 01/13/17 Reported Vitamin D3 (Cholecalciferol) 2,000 Unit Cap 6,000 Units PO DAILYBB 01/13/17 Reported Pulmicort Respules 0.25MG/2ML (Budesonide) 0.25 Mg/2 Ml Nebu 0.25 Mg INH DAILY 01/13/17 Reported Lipitor (Atorvastatin Calcium) 20 Mg Tab 20 Mg PO DAILYBD 01/13/17 Reported Acetylcysteine 20 % [place] 3 Ml INH BID 01/13/17 Reported Physical Physical Exam Vital Signs: Date Time Temp Pulse Resp B/P (MAP) Pulse Ox O2 Delivery O2 Flow Rate FiO2 01/14/17 07:45 Nasal Cannula 2.0 01/14/17 07:41 36.8 62 18 161/94 (116) 98 01/14/17 07:11 82 22 94 Nasal Cannula 2.0 01/14/17 00:18 36.1 58 20 122/77 (92) 96 Nasal Cannula 2.0 01/14/17 00:00 Nasal Cannula 2.0 01/13/17 19:30 89 22 95 Nasal Cannula 2.0 01/13/17 16:22 85 22 96 Nasal Cannula 2.0 01/13/17 16:00 94 Nasal Cannula 2.0 01/13/17 14:20 36.6 103 22 149/93 (111) 94 Nasal Cannula 2.0 01/13/17 13:05 96 20 167/108 94 Nasal Cannula 2.0 01/13/17 12:06 89 16 144/98 95 Room Air 01/13/17 11:55 95 Nasal Cannula 2.0 Head: NORMOCEPHALIC, ATRAUMATIC Eyes: PERRLA, NO DISCHARGE, EOMI, SCLERAE NORMAL, CONJUNCTIVAE NORMAL ENT: NORMAL NASAL EXAM, NORMAL MOUTH EXAM, NORMAL THROAT EXAM (Malampatti II) Neck: NORMAL RANGE OF MOTION, NO TENDERNESS, TRACHEA MIDLINE, SUPPLE, NO NUCHAL RIGIDITY Respiratory: other (Decreased breath sound bilaterally) Cardiovasular: REGULAR RATE/RHYTHM, NORMAL S1S2 Abdomen: NON TENDER, NORMAL BOWEL SOUNDS, NO REBOUND, NO MASSES Genitourinary - Male: EXTERNAL GENITALIA NORMAL Back: NORMAL INSPECTION, NO MIDLINE TENDERNESS, NO CVA TENDERNESS Upper Extremities: NO EDEMA Lower Extremities: NO EDEMA Pulses: dorsalis pedis (R) (2+), dorsalis pedis (L) (2+) Neuro: ALERT, ORIENTED x 3, NORMAL MOTOR EXAM, NORMAL SENSATION Psychiatric: NORMAL AFFECT, NO SUICIDAL IDEATION, CONTRACTS FOR SAFETY, flat affect Diagnostics Labs Results Past 24 Hours Test 01/13/17 17:17 01/13/17 17:21 01/13/17 20:36 01/14/17 05:29 Range/Units Bedside Glucose 417 303 313 70-99 mg/dl White Blood Count 10.58 4.8-10.8 K/uL Red Blood Count 4.85 4.7-6.1 M/uL Hemoglobin 14.2 14.0-18.0 g/dL Hematocrit 42.8 42-52 % Mean Corpuscular Volume 88.2 80-100 fL Mean Corpuscular Hemoglobin 29.3 25-34 pg Mean Corpuscular Hemoglobin Concent 33.2 32-36 g/dl RDW Standard Deviation 51.7 36.4-46.3 fL RDW Coefficient of Variation 16.1 11.5-14.5 % Platelet Count 232 130-400 K/uL Mean Platelet Volume 10.7 7.4-10.4 fL Nucleated RBC Absolute Count (auto) 0.02 0-0 K/uL Nucleated Red Blood Cells % 0.2 % Sodium Level 141 136-145 mmol/L Potassium Level 3.7 3.5-5.1 mmol/L Chloride Level 102 98-107 mmol/L Carbon Dioxide Level 33 21-32 mmol/L Anion Gap 6.0 3-11 mmol/L Blood Urea Nitrogen 30 7-18 mg/dl Creatinine 1.40 0.60-1.40 mg/dl Est Creatinine Clear Calc Drug Dose 49.3 ml/min Estimated GFR () 57.0 Estimated GFR (Non- 49.1 BUN/Creatinine Ratio 21.4 10-20 Random Glucose 249 70-99 mg/dl Calcium Level 8.8 8.5-10.1 mg/dl Test 01/14/17 07:28 Range/Units Bedside Glucose 238 70-99 mg/dl Impression Assessment and Plan Severe COPD exacerbation Multifocal pneumonia Questionable aspiration Diastolic dysfunction Right lower lobe pulmonary nodule Patient seen and examined at bedside. He appears to be chronically ill male. Patient states that he has recurrent episodes of pneumonia and COPD exacerbation. I agree with current management of IV antibiotics of Zosyn, vancomycin and Levaquin to cover for healthcare associated pneumonia. Continue with nasal cannula and BiPAP at night and when necessary Continue with systemic or corticosteroids. Continue with nebulizers and inhaled corticosteroids. I will order chest PT and flutter valve for adequate pulmonary toilet. I feel the patient is most likely aspirating secondary due to his poor functional status which is seen by debris in the trachea and bilateral main stem bronchi. I will consent for bronchoscopy with BAL. He should also have a video swallow evaluation. In regards to pulmonary nodule this may be secondary to infection so recommend interval follow-up with CT chest in about 6 weeks as he does have history of tobacco use is a current tobacco chewer. I appreciate the consult and will continue to follow.
[2017-01-14] MEDS: ATORVASTATIN 20 MG TAB PO SCH (18:08)
[2017-01-14] MEDS: MONTELUKAST SOD 10 MG TAB PO SCH (20:43)
[2017-01-14] MEDS: ENOXAPARIN 40 MG/0.4 ML SYR SQ SCH (20:43)
[2017-01-14] MEDS: DOCUSATE SODIUM/SENNA 50/8.6MG TAB PO SCH (22:00)
[2017-01-15] VITALS (23 sets, daily range): BP systolic 116–185; BP diastolic 65–104; PULSE 46–84; TEMP 36.1–36.5; O2SAT 91–97
[2017-01-15] MEDS: PIPERACILL/TAZOBAC IV 3.375 GM in DEXTROSE 5% 100ML IV SCH ×3 (00:09→16:27)
[2017-01-15] MEDS ORDERED: VANCOMYCIN TROUGH ONE (03:30)
[2017-01-15] MEDS: VANCOMYCIN INJ 1,250 MG in SODIUM CHLORIDE 0.9% 250ML 250 ML IV SCH (04:29)
[2017-01-15] MEDS: METHYLPREDNISOLONE IV 40 MG in SYRINGE 0 ML IV SCH ×3 (06:30→21:36)
[2017-01-15] MEDS: PANTOprazole SOD 40 MG TAB PO SCH (06:30)
[2017-01-15] MEDS: CHOLECALCIFEROL 1000 INTER.UNIT TAB PO SCH (06:31)
[2017-01-15] MEDS: FORMOTEROL FUMA NEBULIZER SOLN 20 MCG/2 ML VIAL INH SCH ×2 (07:49→19:44)
[2017-01-15] MEDS: ACETYLCYSTEINE 20% INHAL SOLN ***DISPENSED BY RESP. INH SCH ×2 (07:49→19:44)
[2017-01-15] MEDS: ALBUT/IPRATROP 3MG/0.5MG NEB 3 ML VIAL INH SCH ×4 (07:49→19:44)
[2017-01-15] MEDS: BUDESONIDE 0.25 MG/2 ML VIAL (PULMICORT) INH SCH ×2 (07:49→19:44)
[2017-01-15] MEDS: FUROSEMIDE 40 MG TAB PO SCH (08:51)
[2017-01-15] MEDS: FLUTICASONE PROPIONATE NA SPR 16 GM BTL NAE SCH (08:51)
[2017-01-15] MEDS: DOCUSATE SODIUM 100 MG CAP PO SCH ×2 (08:52→19:29)
[2017-01-15] MEDS: FERROUS GLUCONATE 324 MG TAB PO SCH ×2 (08:52→16:38)
[2017-01-15] MEDS: ROFLUMILAST 500 MCG TAB PO SCH (08:52)
[2017-01-15] MEDS: FINASTERIDE 5 MG TAB PO SCH (08:52)
[2017-01-15] MEDS: GUAIFENESIN 600 MG TABCR PO SCH ×2 (08:53→21:26)
[2017-01-15] MEDS: METOPROLOL TARTRATE 25 MG TAB PO SCH ×2 (08:53→21:26)
[2017-01-15] MEDS: PAROXETINE 20 MG TAB PO SCH (08:53)
[2017-01-15] MEDS: CLOPIDOGREL BISULFATE 75 MG TAB PO SCH (08:54)
[2017-01-15] MEDS: NICOTINE 14 MG/24 HR TDSY TD SCH (08:56)
[2017-01-15] MEDS: PREGABALIN 150 MG CAP PO SCH ×2 (09:01→19:28)
[2017-01-15] MEDS: INSULIN ASPART 100 UNITS/ML 3 ML PEN SC SCH ×4 (09:05→21:57)
--- NOTE | 2017-01-15 09:46 | Pulmonology Progress Note ---
Pulmonary Progress Note Date of Service Jan 15, 2017. Attending Dr. Ornelas Subjective Patient seen and examined. He states that he is feeling a little better. Denies any shortness of breath, cough or chest pain. Objective Head: NORMOCEPHALIC, ATRAUMATIC Eyes: PERRLA, NO DISCHARGE, EOMI, SCLERAE NORMAL, CONJUNCTIVAE NORMAL ENT: NORMAL NASAL EXAM, NORMAL MOUTH EXAM, NORMAL THROAT EXAM (Malampatti II) Neck: NORMAL RANGE OF MOTION, NO TENDERNESS, TRACHEA MIDLINE, SUPPLE, NO NUCHAL RIGIDITY Respiratory: other (Decreased breath sound bilaterally) Cardiovasular: REGULAR RATE/RHYTHM, NORMAL S1S2 Abdomen: NON TENDER, NORMAL BOWEL SOUNDS, NO REBOUND, NO MASSES Genitourinary - Male: EXTERNAL GENITALIA NORMAL Back: NORMAL INSPECTION, NO MIDLINE TENDERNESS, NO CVA TENDERNESS Upper Extremities: NO EDEMA Lower Extremities: NO EDEMA Pulses: dorsalis pedis (R) (2+), dorsalis pedis (L) (2+) Neuro: ALERT, ORIENTED x 3, NORMAL MOTOR EXAM, NORMAL SENSATION Psychiatric: NORMAL AFFECT, NO SUICIDAL IDEATION, CONTRACTS FOR SAFETY, flat affect Assessment & Plan Severe COPD exacerbation Multifocal pneumonia Questionable aspiration Diastolic dysfunction Right lower lobe pulmonary nodule Patient seen and examined at bedside. He appears to be chronically ill male. Patient states that he has recurrent episodes of pneumonia and COPD exacerbation. I agree with current management of IV antibiotics of Zosyn, vancomycin and Levaquin to cover for healthcare associated pneumonia. Continue with nasal cannula and BiPAP at night and when necessary Continue with systemic or corticosteroids. Continue with nebulizers and inhaled corticosteroids. Continue with chest PT and flutter valve for adequate pulmonary toilet. I feel the patient is most likely aspirating secondary due to his poor functional status which is seen by debris in the trachea and bilateral main stem bronchi. Patient consented for bronchoscopy with BAL. He is NPO. He should also have a video swallow evaluation. In regards to pulmonary nodule this may be secondary to infection so recommend interval follow-up with CT chest in about 6 weeks as he does have history of tobacco use is a current tobacco chewer. Data Medications: Current Inpatient Medications Medications (Trade) Dose Ordered Sig/Aj Route Start Time Stop Time Status Last Admin Dose Admin Ioversol (Optiray 320) 125 ml UD PRN IV 01/13/17 09:15 01/17/17 09:14 Albuterol/ Ipratropium (Duoneb) 3 ml QIDR INH 01/13/17 12:00 02/12/17 11:59 01/15/17 07:49 3 ML Enoxaparin Sodium (Lovenox Inj) 40 mg Q24H SQ 01/13/17 21:00 02/12/17 20:59 01/14/17 20:43 40 MG Acetaminophen (Tylenol Tab) 650 mg Q4H PRN PO 01/13/17 11:45 02/12/17 11:44 01/13/17 16:59 650 MG Ondansetron HCl (Zofran Inj) 4 mg Q6H PRN IV 01/13/17 11:45 02/12/17 11:44 Insulin Aspart (novoLOG ASPART) SLIDING SCALE If C... ACHS SC 01/13/17 16:00 02/12/17 15:59 01/15/17 09:05 1 UNITS Glucose (Glucose 40% Gel) 15-30 GRAMS 15 GRAMS... UD PRN PO 01/13/17 12:00 02/12/17 11:59 Glucose (Glucose Chew Tab) 4-8 Tablets 4 Tabl... UD PRN PO 01/13/17 12:00 02/12/17 11:59 Dextrose (Dextrose 50% 50ML Syringe) 25-50ML OF 50% DW IV FOR... UD PRN IV 01/13/17 12:00 02/12/17 11:59 Glucagon (Glucagon Inj) 1 mg UD PRN SQ 01/13/17 12:00 02/12/17 11:59 Acetylcysteine (Mucomyst 20% Inh Soln) 3 ml BIDR INH 01/13/17 20:00 02/12/17 19:59 01/15/17 07:49 3 ML Albuterol (Ventolin Hfa Inhaler) 2 puffs Q4H PRN INH 01/13/17 12:00 02/12/17 11:59 Atorvastatin Calcium (Lipitor Tab) 20 mg DAILYBD PO 01/13/17 16:00 02/12/17 15:59 01/14/17 18:08 20 MG Clonazepam (Klonopin Tab) 0.5 mg Q8H PRN PO 01/13/17 12:00 02/12/17 11:59 01/13/17 20:31 0.5 MG Clopidogrel Bisulfate (plAVix TAB) 75 mg DAILY PO 01/14/17 09:00 02/13/17 08:59 01/15/17 08:54 75 MG Docusate Sodium (coLACE CAP) 100 mg BID PO 01/13/17 21:00 02/12/17 20:59 01/15/17 08:52 100 MG Ferrous Gluconate (Ferrous Gluconate Tab) 324 mg BIDM PO 01/13/17 17:00 02/12/17 17:59 01/15/17 08:52 324 MG Finasteride (Proscar Tab) 5 mg DAILY PO 01/14/17 09:00 02/13/17 08:59 01/15/17 08:52 5 MG Fluticasone Propionate (Flonase Nasal [place]) 2 sprays DAILY LISETTE 01/14/17 09:00 02/13/17 08:59 01/15/17 08:51 2 SPRAYS Formoterol Fumarate (Perforomist 20MCG/2ML Neb Soln) 20 mcg BIDR INH 01/13/17 20:00 02/12/17 19:59 01/15/17 07:49 20 MCG Furosemide (Lasix Tab) 40 mg DAILY PO 01/14/17 09:00 02/13/17 08:59 01/15/17 08:51 40 MG Guaifenesin (Mucinex Contr Rel Tab) 600 mg Q12 PO 01/13/17 21:00 02/12/17 20:59 01/15/17 08:53 600 MG Metoprolol Tartrate (Lopressor Tab) 25 mg Q12 PO 01/13/17 21:00 02/12/17 20:59 01/15/17 08:53 25 MG Montelukast Sodium (Singulair Tab) 10 mg QPM PO 01/13/17 21:00 02/12/17 20:59 01/14/17 20:43 10 MG Nicotine (Nicoderm Cq 14MG Patch) 1 patch DAILY TD 01/14/17 09:00 02/13/17 08:59 01/15/17 08:56 1 PATCH Pantoprazole Sodium (Protonix Tab) 40 mg DAILYBB PO 01/14/17 06:30 02/13/17 06:59 01/15/17 06:30 40 MG Paroxetine HCl (pAXil TAB) 20 mg DAILY PO 01/14/17 09:00 02/13/17 08:59 01/15/17 08:53 20 MG Pregabalin (Lyrica Cap) 150 mg BID PO 01/13/17 21:00 02/12/17 20:59 01/15/17 09:01 150 MG Roflumilast (Daliresp Tab) 500 mcg DAILY PO 01/14/17 09:00 02/13/17 08:59 01/15/17 08:52 500 MCG Senna/Docusate Sodium (Senokot S Tab) 1 tab HS PO 01/13/17 21:00 02/12/17 20:59 01/13/17 20:32 1 TAB Cholecalciferol (Vitamin D Tab) 6,000 inter.unit DAILYBB PO 01/14/17 06:30 02/13/17 06:59 01/15/17 06:31 6,000 INTER.UNIT Miscellaneous Information (Order Awaiting Action) 1 ea QS N/A 01/13/17 16:00 02/12/17 15:59 Methylprednisolone Sodium Succinate 40 mg/Syringe 0.64 ml @ 1.5 mls/min Q8 IV 01/13/17 22:00 02/12/17 21:59 01/15/17 06:30 1.5 MLS/MIN Vancomycin HCl (Consult) 1 ea UD N/A 01/13/17 13:54 02/12/17 13:53 Piperacillin Sod/ Tazobactam Sod (Consult) 1 ea UD N/A 01/13/17 13:56 02/12/17 13:55 Miscellaneous (Remove Nicoderm Patch) 1 ea HS N/A 01/13/17 21:00 02/12/17 20:59 01/14/17 22:22 1 EA Budesonide (Pulmicort Respules 0.25MG/ 2ML Neb Soln) 0.25 mg BIDR INH 01/13/17 20:00 02/12/17 19:59 01/15/17 07:49 0.25 MG Piperacillin Sod/ Tazobactam Sod 3.375 gm/Dextrose 115 ml @ 28.75 mls/ hr Q8@0000,0800,1600 IV 01/14/17 00:00 01/21/17 00:00 01/15/17 08:45 28.75 MLS/HR Tramadol HCl (Ultram Tab) 50 mg Q6 PRN PO 01/13/17 19:30 02/12/17 19:29 01/14/17 20:44 50 MG Vital Signs: Date Time Temp Pulse Resp B/P (MAP) Pulse Ox O2 Delivery O2 Flow Rate FiO2 01/15/17 09:34 36.5 70 22 143/82 92 Nasal Cannula 2.0 01/15/17 07:49 68 22 92 Nasal Cannula 2.0 01/15/17 07:30 Nasal Cannula 2.0 01/15/17 07:08 36.5 70 18 143/82 (102) 94 Nasal Cannula 2.0 01/15/17 00:00 Nasal Cannula 2.0 01/14/17 23:54 36.4 51 16 119/73 (88) 95 Nasal Cannula 2.0 01/14/17 20:40 70 121/73 (89) 01/14/17 19:09 69 22 92 Nasal Cannula 2.0 01/14/17 16:00 Nasal Cannula 2.0 01/14/17 15:31 36.5 63 18 143/76 (98) 92 Nasal Cannula 2.0 01/14/17 14:04 86 22 94 Nasal Cannula 2.0 Laboratory Results: Last 24 Hours Test 01/14/17 11:53 01/14/17 16:42 01/14/17 20:32 01/15/17 03:45 Bedside Glucose 279 mg/dl 219 mg/dl 239 mg/dl Vancomycin Level Trough 24.0 mcg/ml Test 01/15/17 08:33
[2017-01-15] MEDS ORDERED: DEXTROSE 5% 1000ML 1,000 ML IV SCH (10:08)
--- NOTE | 2017-01-15 10:16 | Progress Note ---
Medicine Progress Note Date & Time of Visit: Jan 14, 2017 at 20:15. Subjective Pt was seen and examined Lying in bed with no distress Pt said that his breathing seems a little bit better he continue to cough Denies any fever, palpitation and sob Objective Last 8 Hrs Date Time Temp Pulse Resp B/P (MAP) Pulse Ox O2 Delivery O2 Flow Rate FiO2 01/14/17 19:09 69 22 92 Nasal Cannula 2.0 01/14/17 15:31 36.5 63 18 143/76 (98) 92 Nasal Cannula 2.0 01/14/17 14:04 86 22 94 Nasal Cannula 2.0 Physical Exam: General- no acute distress Head- atraumatic Eyes- PERRL, EOMI ENT- oropharynx clear Neck- supple, no JVD Lungs- decrease BS Heart- regular rhythm; no murmur Abdomen- normal bowel sounds, soft Extremities- no calf tenderness Neuro- alert, oriented x 3; PERRL, EOMI; no facial palsy Skin- warm & dry Laboratory Results: Last 24 Hours Test 01/13/17 20:36 01/14/17 05:29 01/14/17 07:28 01/14/17 11:53 Bedside Glucose 313 mg/dl 238 mg/dl 279 mg/dl White Blood Count 10.58 K/uL Red Blood Count 4.85 M/uL Hemoglobin 14.2 g/dL Hematocrit 42.8 % Mean Corpuscular Volume 88.2 fL Mean Corpuscular Hemoglobin 29.3 pg Mean Corpuscular Hemoglobin Concent 33.2 g/dl RDW Standard Deviation 51.7 fL RDW Coefficient of Variation 16.1 % Platelet Count 232 K/uL Mean Platelet Volume 10.7 fL Nucleated RBC Absolute Count (auto) 0.02 K/uL Nucleated Red Blood Cells % 0.2 % Sodium Level 141 mmol/L Potassium Level 3.7 mmol/L Chloride Level 102 mmol/L Carbon Dioxide Level 33 mmol/L Anion Gap 6.0 mmol/L Blood Urea Nitrogen 30 mg/dl Creatinine 1.40 mg/dl Est Creatinine Clear Calc Drug Dose 49.3 ml/min Estimated GFR () 57.0 Estimated GFR (Non- 49.1 BUN/Creatinine Ratio 21.4 Random Glucose 249 mg/dl Calcium Level 8.8 mg/dl Test 01/14/17 16:42 Bedside Glucose 219 mg/dl Assessment & Plan SHORTNESS OF BREATH CHRONIC HYPOXIC RESPIRATORY FAILURE Due to COPD exacerbation secondary to multifocal pneumonia, health care associated, possible aspiration Has underlying severe COPD and idiopathic sleep related nonobstructive alveolar hypoventilation Recently discharge from [facility] for COPD exacerbation, left upper and lower lobe pneumonia, tested + for parainfluenza virus; treated with ceftriaxone, azithromycin, IV Solu-Medrol, nebs, BiPAP PRN; seen by pulmonology ; and was d/c on Levaquin and prednisone taper CTA chest showed multifocal pneumonia left lower lobe and to a lesser degree the lingula. Continue Zosyn Will d/c vanco Continue IV Solu-Medrol 40 mg TID and Duoneb QID On budesonide and formoterol nebs, acetylcysteine, Incruse Ellipta inhaler, Singulair, Daliresp Speech consult recommended to continue mechanical soft diet pulmonology and plan to do Bronchoscopy tomorrow Continue chronic O2 2 liters nasal cannula, BiPAP HS HX MILD DIASTOLIC DYSFUNCTION/ HX S/P AVR 03/2014 ON Lasix 40 mg PO daily stable HYPERTENSION BP fructuates Continue metoprolol DM TYPE 2 A1c 7.3 in 10/2016 Hold glimepiride Novolog sliding scale CEREBROVASCULAR DISEASE Continue Plavix, statin ANXIETY/ DEPRESSION Continue Paxil and PRN Klonopin ? PULMONARY NODULE CTA chest- Solid 13 mm pulmonary nodule at the right lower lobe may be another site of infection/pneumonia. However, follow-up after treatment to ensure resolution is recommended. DVT PROPHYLAXIS Lovenox SQ (will hold for bronchoscopy in am) CODE STATUS DNR Consultants: Pulmonary Current Inpatient Medications: Current Inpatient Medications Medications (Trade) Dose Ordered Sig/Aj Route Start Time Stop Time Status Last Admin Dose Admin Ioversol (Optiray 320) 125 ml UD PRN IV 01/13/17 09:15 01/17/17 09:14 Albuterol/ Ipratropium (Duoneb) 3 ml QIDR INH 01/13/17 12:00 02/12/17 11:59 01/14/17 19:05 3 ML Enoxaparin Sodium (Lovenox Inj) 40 mg Q24H SQ 01/13/17 21:00 02/12/17 20:59 01/13/17 20:34 40 MG Acetaminophen (Tylenol Tab) 650 mg Q4H PRN PO 01/13/17 11:45 02/12/17 11:44 01/13/17 16:59 650 MG Ondansetron HCl (Zofran Inj) 4 mg Q6H PRN IV 01/13/17 11:45 02/12/17 11:44 Insulin Aspart (novoLOG ASPART) SLIDING SCALE If C... ACHS SC 01/13/17 16:00 02/12/17 15:59 01/14/17 18:11 7 UNITS Glucose (Glucose 40% Gel) 15-30 GRAMS 15 GRAMS... UD PRN PO 01/13/17 12:00 02/12/17 11:59 Glucose (Glucose Chew Tab) 4-8 Tablets 4 Tabl... UD PRN PO 01/13/17 12:00 02/12/17 11:59 Dextrose (Dextrose 50% 50ML Syringe) 25-50ML OF 50% DW IV FOR... UD PRN IV 01/13/17 12:00 02/12/17 11:59 Glucagon (Glucagon Inj) 1 mg UD PRN SQ 01/13/17 12:00 02/12/17 11:59 Acetylcysteine (Mucomyst 20% Inh Soln) 3 ml BIDR INH 01/13/17 20:00 02/12/17 19:59 01/14/17 19:06 3 ML Albuterol (Ventolin Hfa Inhaler) 2 puffs Q4H PRN INH 01/13/17 12:00 02/12/17 11:59 Atorvastatin Calcium (Lipitor Tab) 20 mg DAILYBD PO 01/13/17 16:00 02/12/17 15:59 01/14/17 18:08 20 MG Clonazepam (Klonopin Tab) 0.5 mg Q8H PRN PO 01/13/17 12:00 02/12/17 11:59 01/13/17 20:31 0.5 MG Clopidogrel Bisulfate (plAVix TAB) 75 mg DAILY PO 01/14/17 09:00 02/13/17 08:59 01/14/17 07:56 75 MG Docusate Sodium (coLACE CAP) 100 mg BID PO 01/13/17 21:00 02/12/17 20:59 01/14/17 07:56 100 MG Ferrous Gluconate (Ferrous Gluconate Tab) 324 mg BIDM PO 01/13/17 17:00 02/12/17 17:59 01/14/17 18:08 324 MG Finasteride (Proscar Tab) 5 mg DAILY PO 01/14/17 09:00 02/13/17 08:59 01/14/17 07:56 5 MG Fluticasone Propionate (Flonase Nasal [place]) 2 sprays DAILY LISETTE 01/14/17 09:00 02/13/17 08:59 01/14/17 07:56 2 SPRAYS Formoterol Fumarate (Perforomist 20MCG/2ML Neb Soln) 20 mcg BIDR INH 01/13/17 20:00 02/12/17 19:59 01/14/17 19:06 20 MCG Furosemide (Lasix Tab) 40 mg DAILY PO 01/14/17 09:00 02/13/17 08:59 01/14/17 07:56 40 MG Guaifenesin (Mucinex Contr Rel Tab) 600 mg Q12 PO 01/13/17 21:00 02/12/17 20:59 01/14/17 07:56 600 MG Metoprolol Tartrate (Lopressor Tab) 25 mg Q12 PO 01/13/17 21:00 02/12/17 20:59 01/14/17 07:56 25 MG Montelukast Sodium (Singulair Tab) 10 mg QPM PO 01/13/17 21:00 02/12/17 20:59 01/13/17 20:33 10 MG Nicotine (Nicoderm Cq 14MG Patch) 1 patch DAILY TD 01/14/17 09:00 02/13/17 08:59 01/14/17 07:57 1 PATCH Pantoprazole Sodium (Protonix Tab) 40 mg DAILYBB PO 01/14/17 06:30 02/13/17 06:59 01/14/17 06:05 40 MG Paroxetine HCl (pAXil TAB) 20 mg DAILY PO 01/14/17 09:00 02/13/17 08:59 01/14/17 07:56 20 MG Pregabalin (Lyrica Cap) 150 mg BID PO 01/13/17 21:00 02/12/17 20:59 01/14/17 07:56 150 MG Roflumilast (Daliresp Tab) 500 mcg DAILY PO 01/14/17 09:00 02/13/17 08:59 01/14/17 07:56 500 MCG Senna/Docusate Sodium (Senokot S Tab) 1 tab HS PO 01/13/17 21:00 02/12/17 20:59 01/13/17 20:32 1 TAB Cholecalciferol (Vitamin D Tab) 6,000 inter.unit DAILYBB PO 01/14/17 06:30 02/13/17 06:59 01/14/17 06:04 6,000 INTER.UNIT Miscellaneous Information (Order Awaiting Action) 1 ea QS N/A 01/13/17 16:00 02/12/17 15:59 Methylprednisolone Sodium Succinate 40 mg/Syringe 0.64 ml @ 1.5 mls/min Q8 IV 01/13/17 22:00 02/12/17 21:59 01/14/17 12:52 1.5 MLS/MIN Vancomycin HCl (Consult) 1 ea UD N/A 01/13/17 13:54 02/12/17 13:53 Piperacillin Sod/ Tazobactam Sod (Consult) 1 ea UD N/A 01/13/17 13:56 02/12/17 13:55 Miscellaneous (Remove Nicoderm Patch) 1 ea HS N/A 01/13/17 21:00 02/12/17 20:59 01/13/17 20:31 1 EA Budesonide (Pulmicort Respules 0.25MG/ 2ML Neb Soln) 0.25 mg BIDR INH 01/13/17 20:00 02/12/17 19:59 01/14/17 19:06 0.25 MG Piperacillin Sod/ Tazobactam Sod 3.375 gm/Dextrose 115 ml @ 28.75 mls/ hr Q8@0000,0800,1600 IV 01/14/17 00:00 01/21/17 00:00 01/14/17 16:30 28.75 MLS/HR Vancomycin HCl 1250 mg/Sodium Chloride 275 ml @ 125 mls/hr Q12@0400,1600 IV 01/13/17 16:00 01/20/17 15:59 01/14/17 16:31 125 MLS/HR Tramadol HCl (Ultram Tab) 50 mg Q6 PRN PO 01/13/17 19:30 02/12/17 19:29 01/14/17 11:18 50 MG
[2017-01-15 10:17] LABS: CREATININE 1.2 mg/dl (0.60-1.40)
--- NOTE | 2017-01-15 10:58 | Procedure Note ---
Post-Moderate Sedation Plan General Date of Moderate Sedation Jan 15, 2017. Vital Signs: Vital Signs Past 12 Hours Date Time Temp Pulse Resp B/P (MAP) Pulse Ox O2 Delivery O2 Flow Rate FiO2 01/15/17 10:51 Mask 01/15/17 10:45 67 18 158/87 93 Nasal Cannula 4.0 01/15/17 10:40 80 18 185/92 96 Mask 10.0 01/15/17 10:35 81 16 157/94 96 Mask 10.0 01/15/17 10:30 80 16 116/78 96 Mask 10.0 01/15/17 10:25 76 14 123/83 94 Mask 10.0 01/15/17 10:20 73 20 146/85 93 Mask 10.0 01/15/17 10:15 75 20 141/95 93 Mask 6.0 01/15/17 09:36 81 20 172/104 93 Mask 4.0 01/15/17 09:34 36.5 70 22 143/82 92 Nasal Cannula 2.0 01/15/17 07:49 68 22 92 Nasal Cannula 2.0 01/15/17 07:30 Nasal Cannula 2.0 01/15/17 07:08 36.5 70 18 143/82 (102) 94 Nasal Cannula 2.0 01/15/17 00:00 Nasal Cannula 2.0 01/14/17 23:54 36.4 51 16 119/73 (88) 95 Nasal Cannula 2.0 Review - Discharge Plan Post Moderate Sedation Plan: On clinical assessment, the patient appears to have tolerated the conscious sedation without complications. Patient is recovering as anticipated. Patient will continue to be monitored by nursing and may be transferred back to floor when sedation criteria is met.
[2017-01-15] MEDS ORDERED: NURSING VERBAL MED ORDER ONE (11:00)
[2017-01-15] MEDS ORDERED: FENTANYL CITRATE INJ 50 MCG/1 ML 2 ML VIAL IV ONE (11:00)
--- NOTE | 2017-01-15 11:23 | Procedure Note ---
Procedure Note Date of Service Jan 15, 2017. Procedure Note Procedure: Bronchoscopy with BAL Procedure note: After informed consent and timeout, the patient the Olympus fiberoptic flexible bronchoscope was inserted in the left nostril. The nasal and oropharynx were within normal limits. The vocal cords were inserted in the trachea visualized to the stephanie. There was whitish secretions coming from bilateral mainstem bronchi in the trachea. The right main bronchus was inserted and consisted of thick whitish secretions were suctioned until clear. The right upper lobe was inserted and inspected to the subsegmental level and no endobronchial lesions were seen. The bronchoscope was withdrawn and inserted into the right middle lobe which was also inspected to the subsegmental level no endobronchial lesions seen. The right lower lobe was inspected to the subsegmental level with thick secretions that were suctioned until clear. No endobronchial lesions were visualized. The bronchoscope was then inserted into the right middle lobe and BAL was taken. The BAL was sent for bacterial, fungal, AFB, viral cultures as well as cytology. The left mainstem bronchus was inserted there was again thick whitish secretions in the airway were suctioned until clear. The upper lobe and lingula were inspected to the subsegmental level no endobronchial lesions were seen. The left lower lobe was inserted and inspected and no endobronchial lesions were seen. The bronchial mucosa was friable and hemoptysis was present. Cold water saline lavage was administered with hemostasis. Patient tolerated the procedure well without any complications. A postprocedure x-ray was ordered. For moderate sedation patient received 2 of Versed and 50 of fentanyl at 10:20 AM on 10:42 AM respectively. Impression: Multifocal pneumonia Mucus plugging Hemoptysis
[2017-01-15] MEDS ORDERED: MIDAZOLAM HCL 5 MG/ML 1 ML VIAL IV ONE (11:30)
--- NOTE | 2017-01-15 13:18 | DIAGNOSTIC IMAGING REPORT ---
CHEST ONE VIEW PORTABLE CLINICAL HISTORY: 76 years-old Male presenting with POST BRONCH. TECHNIQUE: Dictated COMPARISON: 01/13/2017. FINDINGS: Median sternotomy wires with breakage of the most superior wire, unchanged. Atherosclerosis of aortic arch. Cardiac silhouette normal in size. Heterogeneous lung markings likely reflective of emphysema. Previously noted subtle opacity in the left mid lung and left base may have slightly decreased from prior. The right basilar nodule noted on CT from 01/13/2017 is not visible radiographically. No large effusion or pneumothorax. Osseous structures normal. Upper abdomen normal. IMPRESSION: 1. Stable to slight interval increase in left mid and basilar opacities. No pneumothorax. 2. Emphysema. Electronically signed by: Avel Raman M.D. 01/15/2017 1:16 PM Dictated Date/Time: 01/15/2017 1:14 PM
[2017-01-15] MEDS ORDERED: FENTANYL CITRATE 100 MCG 2 ML CARP IV ONE (13:48)
[2017-01-15] MEDS ORDERED: MIDAZOLAM HCL 1 MG/ML 2ML VIAL IV ONE (13:48)
--- NOTE | 2017-01-15 15:18 | DIAGNOSTIC IMAGING REPORT ---
VIDEO SWALLOW CLINICAL HISTORY: 76 years-old Male presenting with Assess for aspiration. TECHNIQUE: Video fluoroscopic evaluation of swallowing was performed in the AP and lateral projections in conjunction with speech pathology. The patient was administered various textures, including nectar-thick and thin liquid barium, a barium coated wafer, and barium pudding. COMPARISON: None. FINDINGS: Intermittent silent aspiration with thin liquids. No aspiration with chin tuck maneuver. Silent aspiration also observed intermittently with nectar thick liquids. No aspiration or penetration with pudding consistency, however, intermittent silent aspiration of solids. Fluoroscopy dosage (mGy): Not available. Fluoroscopy time: 3.3 minutes. Number of fluoroscopic spot images: 0. IMPRESSION: 1. Intermittent silent aspiration of multiple textures as above. 2. Please see the speech pathologist report for detailed findings and recommendations. Electronically signed by: Avel Raman M.D. 01/15/2017 3:16 PM Dictated Date/Time: 01/15/2017 3:14 PM
[2017-01-15] MEDS: TRAMADOL HCL 50 MG TAB PO PRN (16:27)
[2017-01-15] MEDS: ATORVASTATIN 20 MG TAB PO SCH (16:38)
--- NOTE | 2017-01-15 18:36 | Progress Note ---
Medicine Progress Note Date & Time of Visit: Jan 15, 2017 at 12:15. Subjective Pt was seen and examined Lying in bed comfortable with no distress Just had bronch done denies any chest pain, palpitation Objective Last 8 Hrs Date Time Temp Pulse Resp B/P (MAP) Pulse Ox O2 Delivery O2 Flow Rate FiO2 01/15/17 12:01 36.4 70 24 172/80 (110) 91 Nasal Cannula 4.0 01/15/17 11:37 36.4 70 24 175/97 (123) 93 Nasal Cannula 4.0 01/15/17 11:15 70 20 146/80 92 Nasal Cannula 4.0 01/15/17 11:05 67 18 127/75 92 Nasal Cannula 4.0 01/15/17 10:55 36.1 67 18 153/85 92 Nasal Cannula 4.0 01/15/17 10:51 Mask 01/15/17 10:45 67 18 158/87 93 Nasal Cannula 4.0 01/15/17 10:40 80 18 185/92 96 Mask 10.0 01/15/17 10:35 81 16 157/94 96 Mask 10.0 01/15/17 10:30 80 16 116/78 96 Mask 10.0 01/15/17 10:25 76 14 123/83 94 Mask 10.0 01/15/17 10:20 73 20 146/85 93 Mask 10.0 01/15/17 10:15 75 20 141/95 93 Mask 6.0 01/15/17 09:36 81 20 172/104 93 Mask 4.0 01/15/17 09:34 36.5 70 22 143/82 92 Nasal Cannula 2.0 01/15/17 07:49 68 22 92 Nasal Cannula 2.0 01/15/17 07:30 Nasal Cannula 2.0 01/15/17 07:08 36.5 70 18 143/82 (102) 94 Nasal Cannula 2.0 Physical Exam: General- no acute distress Head- atraumatic Eyes- PERRL, EOMI ENT- oropharynx clear Neck- supple, no JVD Lungs- decrease BS Heart- regular rhythm; no murmur Abdomen- normal bowel sounds, soft Extremities- no calf tenderness Neuro- alert, oriented x 3; PERRL, EOMI; no facial palsy Skin- warm & dry Laboratory Results: Last 24 Hours Test 01/14/17 16:42 01/14/17 20:32 01/15/17 00:00 01/15/17 03:45 Bedside Glucose 219 mg/dl 239 mg/dl Vancomycin Level Trough 24.0 mcg/ml Test 01/15/17 09:38 Creatinine 1.20 mg/dl Est Creatinine Clear Calc Drug Dose 57.5 ml/min Estimated GFR () 68.6 Estimated GFR (Non- 59.2 Date/Time Source Procedure Growth Status 01/15/17 00:00 Bronchial Washings Right Middle Lobe Fungal Smear Pending Received 01/15/17 00:00 Bronchial Washings Right Middle Lobe Fungal Culture Pending Received 01/15/17 00:00 Bronchial Washings Right Middle Lobe Acid Fast Stain Pending Received 01/15/17 00:00 Bronchial Washings Right Middle Lobe Mycobacterial Culture Pending Received 01/15/17 00:00 Bronchial Washings Right Middle Lobe Gram Stain Pending Received 01/15/17 00:00 Bronchial Washings Right Middle Lobe Bronchoalveolar Lavage Culture Pending Received Assessment & Plan SHORTNESS OF BREATH CHRONIC HYPOXIC RESPIRATORY FAILURE Due to COPD exacerbation secondary to multifocal pneumonia, health care associated, possible aspiration Has underlying severe COPD and idiopathic sleep related nonobstructive alveolar hypoventilation Recently discharge from [facility] for COPD exacerbation, left upper and lower lobe pneumonia, tested + for parainfluenza virus; treated with ceftriaxone, azithromycin, IV Solu-Medrol, nebs, BiPAP PRN; seen by pulmonology ; and was d/c on Levaquin and prednisone taper CTA chest showed multifocal pneumonia left lower lobe and to a lesser degree the lingula. Continue Zosyn Will d/c vanco Continue IV Solu-Medrol 40 mg TID and Duoneb QID On budesonide and formoterol nebs, acetylcysteine, Incruse Ellipta inhaler, Singulair, Daliresp Speech consult recommended to continue mechanical soft diet pulmonology and plan to do Bronchoscopy tomorrow Continue chronic O2 2 liters nasal cannula, BiPAP HS 01/15 S/P Bronch done today showed mucus plug, multifocal pneumonia and hemoptysis D/C IV vanco Continue IV zosyn Video swallow done showed intermittent silent aspiration of solids. Case discussed with speech therapist moderate-severe itzel-pharyngeal dysphagia. Recommended Mechanical soft diet and NECTAR thick liquids. NO straws. NO mixed consistencies HX MILD DIASTOLIC DYSFUNCTION/ HX S/P AVR 03/2014 ON Lasix 40 mg PO daily stable HYPERTENSION BP stable Continue metoprolol DM TYPE 2 A1c 7.3 in 10/2016 Hold glimepiride NovoLog sliding scale CEREBROVASCULAR DISEASE Continue Plavix, statin ANXIETY/ DEPRESSION Continue Paxil and PRN Klonopin ? PULMONARY NODULE CTA chest- Solid 13 mm pulmonary nodule at the right lower lobe may be another site of infection/pneumonia. However, follow-up after treatment to ensure resolution is recommended. DVT PROPHYLAXIS resume Lovenox CODE STATUS DNR Consultants: Pulmonary Current Inpatient Medications: Current Inpatient Medications Medications (Trade) Dose Ordered Sig/Aj Route Start Time Stop Time Status Last Admin Dose Admin Ioversol (Optiray 320) 125 ml UD PRN IV 01/13/17 09:15 01/17/17 09:14 Albuterol/ Ipratropium (Duoneb) 3 ml QIDR INH 01/13/17 12:00 02/12/17 11:59 01/15/17 07:49 3 ML Enoxaparin Sodium (Lovenox Inj) 40 mg Q24H SQ 01/13/17 21:00 02/12/17 20:59 01/14/17 20:43 40 MG Acetaminophen (Tylenol Tab) 650 mg Q4H PRN PO 01/13/17 11:45 02/12/17 11:44 01/13/17 16:59 650 MG Ondansetron HCl (Zofran Inj) 4 mg Q6H PRN IV 01/13/17 11:45 02/12/17 11:44 Insulin Aspart (novoLOG ASPART) SLIDING SCALE If C... ACHS SC 01/13/17 16:00 02/12/17 15:59 01/15/17 09:05 1 UNITS Glucose (Glucose 40% Gel) 15-30 GRAMS 15 GRAMS... UD PRN PO 01/13/17 12:00 02/12/17 11:59 Glucose (Glucose Chew Tab) 4-8 Tablets 4 Tabl... UD PRN PO 01/13/17 12:00 02/12/17 11:59 Dextrose (Dextrose 50% 50ML Syringe) 25-50ML OF 50% DW IV FOR... UD PRN IV 01/13/17 12:00 02/12/17 11:59 Glucagon (Glucagon Inj) 1 mg UD PRN SQ 01/13/17 12:00 02/12/17 11:59 Acetylcysteine (Mucomyst 20% Inh Soln) 3 ml BIDR INH 01/13/17 20:00 02/12/17 19:59 01/15/17 07:49 3 ML Albuterol (Ventolin Hfa Inhaler) 2 puffs Q4H PRN INH 01/13/17 12:00 02/12/17 11:59 Atorvastatin Calcium (Lipitor Tab) 20 mg DAILYBD PO 01/13/17 16:00 02/12/17 15:59 01/14/17 18:08 20 MG Clonazepam (Klonopin Tab) 0.5 mg Q8H PRN PO 01/13/17 12:00 02/12/17 11:59 01/13/17 20:31 0.5 MG Clopidogrel Bisulfate (plAVix TAB) 75 mg DAILY PO 01/14/17 09:00 02/13/17 08:59 01/15/17 08:54 75 MG Docusate Sodium (coLACE CAP) 100 mg BID PO 01/13/17 21:00 02/12/17 20:59 01/15/17 08:52 100 MG Ferrous Gluconate (Ferrous Gluconate Tab) 324 mg BIDM PO 01/13/17 17:00 02/12/17 17:59 01/15/17 08:52 324 MG Finasteride (Proscar Tab) 5 mg DAILY PO 01/14/17 09:00 02/13/17 08:59 01/15/17 08:52 5 MG Fluticasone Propionate (Flonase Nasal [place]) 2 sprays DAILY LISETTE 01/14/17 09:00 02/13/17 08:59 01/15/17 08:51 2 SPRAYS Formoterol Fumarate (Perforomist 20MCG/2ML Neb Soln) 20 mcg BIDR INH 01/13/17 20:00 02/12/17 19:59 01/15/17 07:49 20 MCG Furosemide (Lasix Tab) 40 mg DAILY PO 01/14/17 09:00 02/13/17 08:59 01/15/17 08:51 40 MG Guaifenesin (Mucinex Contr Rel Tab) 600 mg Q12 PO 01/13/17 21:00 02/12/17 20:59 01/15/17 08:53 600 MG Metoprolol Tartrate (Lopressor Tab) 25 mg Q12 PO 01/13/17 21:00 02/12/17 20:59 01/15/17 08:53 25 MG Montelukast Sodium (Singulair Tab) 10 mg QPM PO 01/13/17 21:00 02/12/17 20:59 01/14/17 20:43 10 MG Nicotine (Nicoderm Cq 14MG Patch) 1 patch DAILY TD 01/14/17 09:00 02/13/17 08:59 01/15/17 08:56 1 PATCH Pantoprazole Sodium (Protonix Tab) 40 mg DAILYBB PO 01/14/17 06:30 02/13/17 06:59 01/15/17 06:30 40 MG Paroxetine HCl (pAXil TAB) 20 mg DAILY PO 01/14/17 09:00 02/13/17 08:59 01/15/17 08:53 20 MG Pregabalin (Lyrica Cap) 150 mg BID PO 01/13/17 21:00 02/12/17 20:59 01/15/17 09:01 150 MG Roflumilast (Daliresp Tab) 500 mcg DAILY PO 01/14/17 09:00 02/13/17 08:59 01/15/17 08:52 500 MCG Senna/Docusate Sodium (Senokot S Tab) 1 tab HS PO 01/13/17 21:00 02/12/17 20:59 01/13/17 20:32 1 TAB Cholecalciferol (Vitamin D Tab) 6,000 inter.unit DAILYBB PO 01/14/17 06:30 02/13/17 06:59 01/15/17 06:31 6,000 INTER.UNIT Miscellaneous Information (Order Awaiting Action) 1 ea QS N/A 01/13/17 16:00 02/12/17 15:59 Methylprednisolone Sodium Succinate 40 mg/Syringe 0.64 ml @ 1.5 mls/min Q8 IV 01/13/17 22:00 02/12/17 21:59 01/15/17 06:30 1.5 MLS/MIN Piperacillin Sod/ Tazobactam Sod (Consult) 1 ea UD N/A 01/13/17 13:56 02/12/17 13:55 Miscellaneous (Remove Nicoderm Patch) 1 ea HS N/A 01/13/17 21:00 02/12/17 20:59 01/14/17 22:22 1 EA Budesonide (Pulmicort Respules 0.25MG/ 2ML Neb Soln) 0.25 mg BIDR INH 01/13/17 20:00 02/12/17 19:59 01/15/17 07:49 0.25 MG Piperacillin Sod/ Tazobactam Sod 3.375 gm/Dextrose 115 ml @ 28.75 mls/ hr Q8@0000,0800,1600 IV 01/14/17 00:00 01/21/17 00:00 01/15/17 08:45 28.75 MLS/HR Tramadol HCl (Ultram Tab) 50 mg Q6 PRN PO 01/13/17 19:30 02/12/17 19:29 01/14/17 20:44 50 MG Dextrose 1,000 ml @ 15 mls/hr Q24H IV 01/15/17 10:08 01/16/17 10:07
[2017-01-15] MEDS ORDERED: PHARMACY GLYCEMIC MGMT CONSULT PRN (18:44)
[2017-01-15] MEDS ORDERED: INSULIN REGULAR 8 UNITS in SYRINGE 0 ML IV ONE (19:00)
[2017-01-15] MEDS ORDERED: INSULIN GLARGINE SOLOSTAR 100 UNITS/ML 3 ML PEN SC ONE ×2 (19:30→21:00)
--- NOTE | 2017-01-15 19:57 | Pharmacy Progress Note ---
Glycemic Control Intl Consult Date of Service Jan 15, 2017. Scope Glycemic Pharmacist consulted by Dr Love on 01/15 for glycemic control and to write orders per [facility] inpatient glycemic control protocol Objective Weight (Kilograms): 84.000 Accuchecks BSG (last 24hrs): Test 01/14/17 20:32 01/15/17 07:47 01/15/17 11:37 01/15/17 16:33 Bedside Glucose 239 mg/dl (70-99) 189 mg/dl (70-99) 206 mg/dl (70-99) 362 mg/dl (70-99) Laboratory Data (last 24hrs) Test 01/15/17 09:38 Creatinine 1.20 mg/dl Recent Pertinent Medications Outpatient Anti-diabetic Regimen: * Glimepiride 2 mg po BIDM * A1c unknown, pending for 01/16/17 The patient is currently receiving: * Basal insulin: None * Correctional Insulin: Novolog Correction per scale ACHS Goal Range: Low 140 mg/dL - High 180 mg/dL Correction Factor: 30 mg/dL/unit * Prandial insulin: Per carb ratio of 1 unit per 9 grams CHO consumed * Oral Agents: On hold Risk Factors for Insulin Resistance: * Steroids: Methylprednisolone 40 mg IV q8h * Infection: aspiration PNA * Diet: T2DM/AHA Assessment & Plan ASSESSMENT: * ADA & AACE recommend a goal blood sugar range 140-180 mg/dl for the majority of critically ill & non-critically ill patients. However, more stringent targets may be selected in individual cases. * 76 yo M admitted on 01/13 with aspiration PNA. Now with severe hyperglycemia to 362 mg/dL. Etiology likely multifactorial including steroid-induced without basal insulin * Will add basal insulin. 1st dose will be given at full daily dose x1 2nd basal deficiency. However, this will not fix immediate hyperglycemia. * To fix hyperglycemia immediately, will give IV insulin at 0.1 units/kg. Will also add in two overnight accuchecks to provide additional insulin * Will also adjust Novolog as follows * Decrease goal range * Tighten carb ratio (as hyperglycemia is likely 2nd steroids which responds best to prandial coverage) * Maintain correction factor (will still receive additional correctional insulin 2nd decreased upper end of goal range) PLAN FOR INPATIENT GLYCEMIC CONTROL: * IV insulin 8 units x1 now, recheck BSG 1 hr after administration * Continue to hold outpatient oral diabetes medications * Add Basal insulin with LANTUS 25 units SQ x1 now. Ongoing dosing in AM dependent on overnight trend in BSG * Correctional Insulin with NOVOLOG per scale ACHS or Q6hrs while NPO - add two overnight checks * Decrease Goal Range: Low 110 mg/dL - High 140 mg/dL * Correction Factor: 30 mg/dL/unit * Tighten Nutritional / Prandial insulin per carb ratio of 1 unit per 7 grams CHO consumed * Please note that the plan above was derived based on current level of insulin resistance and hospital stress. These recommendations are appropriate for inpatient admission only. Plan of care upon discharge will need to be reassessed to avoid potential outpatient hypo/hyperglycemia. Thank you.
[2017-01-15] MEDS: ENOXAPARIN 40 MG/0.4 ML SYR SQ SCH (21:24)
[2017-01-15] MEDS: MONTELUKAST SOD 10 MG TAB PO SCH (21:26)
[2017-01-15] MEDS: DOCUSATE SODIUM/SENNA 50/8.6MG TAB PO SCH (21:30)
[2017-01-16] VITALS (12 sets, daily range): BP systolic 122–167; BP diastolic 66–85; PULSE 50–84; TEMP 36.3–36.6; O2SAT 91–98
[2017-01-16] MEDS: PIPERACILL/TAZOBAC IV 3.375 GM in DEXTROSE 5% 100ML IV SCH ×3 (00:13→16:52)
[2017-01-16] MEDS: INSULIN ASPART 100 UNITS/ML 3 ML PEN SC SCH ×6 (00:22→22:21)
[2017-01-16] MEDS: METHYLPREDNISOLONE IV 40 MG in SYRINGE 0 ML IV SCH ×3 (05:02→22:04)
[2017-01-16] MEDS: PANTOprazole SOD 40 MG TAB PO SCH (05:06)
[2017-01-16] MEDS: CHOLECALCIFEROL 1000 INTER.UNIT TAB PO SCH (05:07)
[2017-01-16] MEDS: ACETYLCYSTEINE 20% INHAL SOLN ***DISPENSED BY RESP. INH SCH ×2 (06:57→19:32)
[2017-01-16] MEDS: ALBUT/IPRATROP 3MG/0.5MG NEB 3 ML VIAL INH SCH ×4 (06:57→19:33)
[2017-01-16] MEDS: FORMOTEROL FUMA NEBULIZER SOLN 20 MCG/2 ML VIAL INH SCH ×2 (06:57→19:31)
[2017-01-16] MEDS: BUDESONIDE 0.25 MG/2 ML VIAL (PULMICORT) INH SCH ×2 (06:57→19:31)
[2017-01-16 07:11] LABS: HEMATOCRIT 41.2 % (42-52); MEAN CELL VOLUME 89.6 fL (80-100); MEAN CORPUSCULAR HEMOGLOBIN 27.8 pg (25-34); MEAN CORPUSCULAR HGB CONC 31.1 g/dl (32-36); PLATELET COUNT 243 K/uL (130-400); WHITE BLOOD COUNT 11.67 K/uL (4.8-10.8)
[2017-01-16 07:31] LABS: ESTIMATED AVERAGE GLUCOSE 186 mg/dl; HA1C FLAG Normal (Normal)
[2017-01-16 07:35] LABS: BUN/CREATININE RATIO 21.2 (10-20); CALCIUM 8.8 mg/dl (8.5-10.1); CREATININE 1.4 mg/dl (0.60-1.40); POTASSIUM 3.3 mmol/L (3.5-5.1)
[2017-01-16] MEDS ORDERED: POTASSIUM CHLORIDE 20 MEQ TABCR PO ONE (08:30)
[2017-01-16] MEDS ORDERED: INSULIN GLARGINE SOLOSTAR 100 UNITS/ML 3 ML PEN SC ONE (09:00)
[2017-01-16] MEDS: PREGABALIN 150 MG CAP PO SCH ×2 (09:21→20:10)
[2017-01-16] MEDS: CLOPIDOGREL BISULFATE 75 MG TAB PO SCH (09:21)
[2017-01-16] MEDS: DOCUSATE SODIUM 100 MG CAP PO SCH ×2 (09:21→20:00)
[2017-01-16] MEDS: FERROUS GLUCONATE 324 MG TAB PO SCH ×2 (09:22→16:57)
[2017-01-16] MEDS: METOPROLOL TARTRATE 25 MG TAB PO SCH ×2 (09:22→20:13)
[2017-01-16] MEDS: FUROSEMIDE 40 MG TAB PO SCH (09:22)
[2017-01-16] MEDS: PAROXETINE 20 MG TAB PO SCH (09:22)
[2017-01-16] MEDS: GUAIFENESIN 600 MG TABCR PO SCH ×2 (09:23→20:12)
[2017-01-16] MEDS: NICOTINE 14 MG/24 HR TDSY TD SCH (09:23)
[2017-01-16] MEDS: FINASTERIDE 5 MG TAB PO SCH (09:23)
[2017-01-16] MEDS: ROFLUMILAST 500 MCG TAB PO SCH (09:23)
[2017-01-16] MEDS: FLUTICASONE PROPIONATE NA SPR 16 GM BTL NAE SCH (09:23)
[2017-01-16] MEDS: TRAMADOL HCL 50 MG TAB PO PRN ×2 (09:32→20:10)
--- NOTE | 2017-01-16 11:53 | Pharmacy Progress Note ---
Glycemic Control Progress Note Date of Service Jan 16, 2017. Scope Glycemic Pharmacist consulted for glycemic control to write orders per [facility] inpatient glycemic control protocol. Objective Accuchecks BSG (last 24hrs): Test 01/15/17 11:37 01/15/17 16:33 01/15/17 20:31 01/15/17 20:38 Bedside Glucose 206 mg/dl (70-99) 362 mg/dl (70-99) 238 mg/dl (70-99) 217 mg/dl (70-99) Test 01/15/17 21:35 01/16/17 00:08 01/16/17 04:42 01/16/17 06:13 Bedside Glucose 219 mg/dl (70-99) 232 mg/dl (70-99) 182 mg/dl (70-99) Random Glucose 188 mg/dl (70-99) Test 01/16/17 08:01 Bedside Glucose 191 mg/dl (70-99) HbA1c: Test 01/16/17 06:13 Hemoglobin A1c 8.1 % (4.5-5.6) H Recent Pertinent Medications The patient is currently receiving: * Basal insulin: Lantus 25 units X 1 yesterday * Correctional Insulin: Novolog Correction per scale ACHS Goal Range: Low 140 mg/dL - High 180 mg/dL --> changed to 110-140 mg/dL for bedtime Correction Factor: 30 mg/dL/unit * Prandial insulin: Per carb ratio of 1 unit per 9 grams CHO consumed -- > changed to 1 unit per 7 grams CHO consumed for bedtime Outpatient Anti-Diabetic Meds glimepiride 2 mg PO BIDM Novolog ACHS Assessment & Plan ASSESSMENT: * See progress note from 01/15/17 for more background info, in short: Mr Mccarty is a 76 y/o M admitted with aspiration PNA from the [facility]. * Pt receiving SQ basal bolus insulin regimen for hyperglycemia secondary to baseline DM (outpatient regimen on hold), possible aspiration pneumonia on Zosyn , POD 1 for bronchoscopy, and type 2 diabetic diet * Patient is currently receiving an average of 20-50 units of insulin per day * 25 units of basal insulin * 20 units of prandial/correctional insulin * BSGs ranging 189 - 362 mg/dl over the past 24hrs * Changes needed to insulin regimen: * AM Fasting BSG = 188 mg/dl. This is in slightly above goal range for patient based on inpatient targets and co-morbidities. Patient currently has continued orders for Solu-Medrol 40 mg IV q 8 hours. Patient received his first dose of Lantus 25 units last night (slightly higher than half of weight-based stress of 3). This morning weight-based stress of 3 last dose was ordered. Will order sliding scale of insulin for current time being as effects of steroids will linger for some time. * Post-prandial BSGs are elevated/BSGs rise throughout the day therefore need to tighten CF/CR. Will tighten to weight based stress of 3 and add overnight accuchecks to ensure 24 hour glucose control. * Total daily dose = ~50 units. Will truly depend on steroids maintenance. PLAN FOR INPATIENT GLYCEMIC CONTROL: * START Lantus to 15-20 units SQ BID (Lantus 15 units if blood sugar less than 140 mg/dL; Lantus 20 units if blood sugar 140 mg/dL or greater) * TIGHTEN correction factor to 20 mg/dl/unit * TIGHTEN carb ratio to 1 unit per 6 grams CHO consumed * Continuing goal range of Low 110 mg/dL - High 140 mg/dL RECOMMENDATIONS FOR DISCHARGE: * patient's outpatient regimen is elevated. Recommend the following: * discontinue glimepiride (increased risk of hypoglycemia in the elderly) * start Lantus 15 units once daily (0.2 units/kg/day) Thank you.
--- NOTE | 2017-01-16 15:07 | Pulmonology Progress Note ---
Pulmonary Progress Note Date of Service Jan 16, 2017. Attending Subjective Patient seen and examined. He is feeling better since having bronchoscopy. Denies any fever, chills, chest pain or shortness of breath. Objective VS: reviewed Head: NORMOCEPHALIC, ATRAUMATIC Eyes: PERRLA, NO DISCHARGE, EOMI, SCLERAE NORMAL, CONJUNCTIVAE NORMAL ENT: NORMAL NASAL EXAM, NORMAL MOUTH EXAM, NORMAL THROAT EXAM ([place] II) Neck: NORMAL RANGE OF MOTION, NO TENDERNESS, TRACHEA MIDLINE, SUPPLE, NO NUCHAL RIGIDITY Respiratory: other (Decreased breath sound bilaterally) Cardiovasular: REGULAR RATE/RHYTHM, NORMAL S1S2 Abdomen: NON TENDER, NORMAL BOWEL SOUNDS, NO REBOUND, NO MASSES Genitourinary - Male: EXTERNAL GENITALIA NORMAL Back: NORMAL INSPECTION, NO MIDLINE TENDERNESS, NO CVA TENDERNESS Upper Extremities: NO EDEMA Lower Extremities: NO EDEMA Pulses: dorsalis pedis (R) (2+), dorsalis pedis (L) (2+) Neuro: ALERT, ORIENTED x 3, NORMAL MOTOR EXAM, NORMAL SENSATION Psychiatric: NORMAL AFFECT, NO SUICIDAL IDEATION, CONTRACTS FOR SAFETY, flat affect Assessment & Plan Severe COPD exacerbation Multifocal pneumonia Aspiration Diastolic dysfunction Right lower lobe pulmonary nodule Patient s/p bronchoscopy yesterday tolerated procedure well. Thick mucous plugs were suctioned from bilateral mainstem bronchi and trachea, otherwise unremarkable exam. Bronch bacterial culture--showed normal amanda. AFB and fungal cultures are still pending as well as cytology. I agree with current management of IV antibiotics of Zosyn, vancomycin and Levaquin to cover for healthcare associated pneumonia. Continue with nasal cannula and BiPAP at night and when necessary Continue with systemic or corticosteroids. Continue with nebulizers and inhaled corticosteroids. Continue with chest PT and flutter valve for adequate pulmonary toilet. Video swallow evaluation showed that patient is aspirating on thin liquids. Follow recommendations of speech In regards to pulmonary nodule this may be secondary to infection so recommend interval follow-up with CT chest in about 6 weeks as he does have history of tobacco use is a current tobacco chewer. I will sign off case today. Feel free to re consult if you have any other questions or concerns. Data Medications: Current Inpatient Medications Medications (Trade) Dose Ordered Sig/Aj Route Start Time Stop Time Status Last Admin Dose Admin Ioversol (Optiray 320) 125 ml UD PRN IV 01/13/17 09:15 01/17/17 09:14 Albuterol/ Ipratropium (Duoneb) 3 ml QIDR INH 01/13/17 12:00 02/12/17 11:59 01/16/17 11:12 3 ML Enoxaparin Sodium (Lovenox Inj) 40 mg Q24H SQ 01/13/17 21:00 02/12/17 20:59 01/15/17 21:24 40 MG Acetaminophen (Tylenol Tab) 650 mg Q4H PRN PO 01/13/17 11:45 02/12/17 11:44 01/13/17 16:59 650 MG Ondansetron HCl (Zofran Inj) 4 mg Q6H PRN IV 01/13/17 11:45 02/12/17 11:44 Insulin Aspart (novoLOG ASPART) SLIDING SCALE If C... ACHS SC 01/13/17 16:00 02/12/17 15:59 01/16/17 13:24 14 UNITS Glucose (Glucose 40% Gel) 15-30 GRAMS 15 GRAMS... UD PRN PO 01/13/17 12:00 02/12/17 11:59 Glucose (Glucose Chew Tab) 4-8 Tablets 4 Tabl... UD PRN PO 01/13/17 12:00 02/12/17 11:59 Dextrose (Dextrose 50% 50ML Syringe) 25-50ML OF 50% DW IV FOR... UD PRN IV 01/13/17 12:00 02/12/17 11:59 Glucagon (Glucagon Inj) 1 mg UD PRN SQ 01/13/17 12:00 02/12/17 11:59 Acetylcysteine (Mucomyst 20% Inh Soln) 3 ml BIDR INH 01/13/17 20:00 02/12/17 19:59 01/16/17 06:57 3 ML Albuterol (Ventolin Hfa Inhaler) 2 puffs Q4H PRN INH 01/13/17 12:00 02/12/17 11:59 Atorvastatin Calcium (Lipitor Tab) 20 mg DAILYBD PO 01/13/17 16:00 02/12/17 15:59 01/15/17 16:38 20 MG Clonazepam (Klonopin Tab) 0.5 mg Q8H PRN PO 01/13/17 12:00 02/12/17 11:59 01/13/17 20:31 0.5 MG Clopidogrel Bisulfate (plAVix TAB) 75 mg DAILY PO 01/14/17 09:00 02/13/17 08:59 01/16/17 09:21 75 MG Docusate Sodium (coLACE CAP) 100 mg BID PO 01/13/17 21:00 02/12/17 20:59 01/16/17 09:21 100 MG Ferrous Gluconate (Ferrous Gluconate Tab) 324 mg BIDM PO 01/13/17 17:00 02/12/17 17:59 01/16/17 09:22 324 MG Finasteride (Proscar Tab) 5 mg DAILY PO 01/14/17 09:00 02/13/17 08:59 01/16/17 09:23 5 MG Fluticasone Propionate (Flonase Nasal [place]) 2 sprays DAILY LISETTE 01/14/17 09:00 02/13/17 08:59 01/16/17 09:23 2 SPRAYS Formoterol Fumarate (Perforomist 20MCG/2ML Neb Soln) 20 mcg BIDR INH 01/13/17 20:00 02/12/17 19:59 01/16/17 06:57 20 MCG Furosemide (Lasix Tab) 40 mg DAILY PO 01/14/17 09:00 02/13/17 08:59 01/16/17 09:22 40 MG Guaifenesin (Mucinex Contr Rel Tab) 600 mg Q12 PO 01/13/17 21:00 02/12/17 20:59 01/16/17 09:23 600 MG Metoprolol Tartrate (Lopressor Tab) 25 mg Q12 PO 01/13/17 21:00 02/12/17 20:59 01/16/17 09:22 25 MG Montelukast Sodium (Singulair Tab) 10 mg QPM PO 01/13/17 21:00 02/12/17 20:59 01/15/17 21:26 10 MG Nicotine (Nicoderm Cq 14MG Patch) 1 patch DAILY TD 01/14/17 09:00 02/13/17 08:59 01/16/17 09:23 1 PATCH Pantoprazole Sodium (Protonix Tab) 40 mg DAILYBB PO 01/14/17 06:30 02/13/17 06:59 01/16/17 05:06 40 MG Paroxetine HCl (pAXil TAB) 20 mg DAILY PO 01/14/17 09:00 02/13/17 08:59 01/16/17 09:22 20 MG Pregabalin (Lyrica Cap) 150 mg BID PO 01/13/17 21:00 02/12/17 20:59 01/16/17 09:21 150 MG Roflumilast (Daliresp Tab) 500 mcg DAILY PO 01/14/17 09:00 02/13/17 08:59 01/16/17 09:23 500 MCG Senna/Docusate Sodium (Senokot S Tab) 1 tab HS PO 01/13/17 21:00 02/12/17 20:59 01/13/17 20:32 1 TAB Cholecalciferol (Vitamin D Tab) 6,000 inter.unit DAILYBB PO 01/14/17 06:30 02/13/17 06:59 01/16/17 05:07 6,000 INTER.UNIT Miscellaneous Information (Order Awaiting Action) 1 ea QS N/A 01/13/17 16:00 02/12/17 15:59 Methylprednisolone Sodium Succinate 40 mg/Syringe 0.64 ml @ 1.5 mls/min Q8 IV 01/13/17 22:00 02/12/17 21:59 01/16/17 13:25 1.5 MLS/MIN Piperacillin Sod/ Tazobactam Sod (Consult) 1 ea UD N/A 01/13/17 13:56 02/12/17 13:55 Miscellaneous (Remove Nicoderm Patch) 1 ea HS N/A 01/13/17 21:00 02/12/17 20:59 01/15/17 21:30 1 EA Budesonide (Pulmicort Respules 0.25MG/ 2ML Neb Soln) 0.25 mg BIDR INH 01/13/17 20:00 02/12/17 19:59 01/16/17 06:57 0.25 MG Piperacillin Sod/ Tazobactam Sod 3.375 gm/Dextrose 115 ml @ 28.75 mls/ hr Q8@0000,0800,1600 IV 01/14/17 00:00 01/21/17 00:00 01/16/17 09:19 28.75 MLS/HR Tramadol HCl (Ultram Tab) 50 mg Q6 PRN PO 01/13/17 19:30 02/12/17 19:29 01/16/17 09:32 50 MG Miscellaneous Information (Consult Glycemic Management Pharmacy) 1 ea UD PRN N/A 01/15/17 18:44 02/14/17 18:43 Insulin Aspart (novoLOG ASPART) SLIDING SCALE If C... TODAY@0000,0400 [place] 01/17/17 00:00 01/17/17 04:01 Insulin Glargine (Lantus Solostar Pen) SEE PROTOCOL BID SC 01/16/17 20:00 02/15/17 19:59 I & O: 24-Hour Column 01/17/17 08:00 Intake Total 480 ml Balance 480 ml Vital Signs: Date Time Temp Pulse Resp B/P (MAP) Pulse Ox O2 Delivery O2 Flow Rate FiO2 01/16/17 11:34 36.5 68 20 136/72 (93) 97 Nasal Cannula 3.0 01/16/17 11:12 54 18 95 Nasal Cannula 2.0 01/16/17 08:30 Nasal Cannula 3.0 01/16/17 07:43 36.4 59 18 167/85 (112) 98 Nasal Cannula 3.0 01/16/17 06:58 60 18 98 Nasal Cannula 3.0 01/16/17 04:06 36.4 59 18 151/80 (103) 98 Nasal Cannula 3.0 01/16/17 00:14 36.6 62 18 122/73 (89) 98 Nasal Cannula 2.5 01/16/17 00:00 Nasal Cannula 3.0 01/15/17 20:44 36.4 62 18 127/69 (88) 93 Nasal Cannula 3.0 01/15/17 19:45 84 18 91 Nasal Cannula 2.0 01/15/17 16:00 Nasal Cannula 3.0 01/15/17 15:41 78 20 119/65 (83) 92 Nasal Cannula 3.0 01/15/17 15:31 70 20 92 Nasal Cannula 2.0 Laboratory Results: Last 24 Hours Test 01/15/17 16:33 01/15/17 20:31 01/15/17 20:38 01/15/17 21:35 Bedside Glucose 362 mg/dl 238 mg/dl 217 mg/dl 219 mg/dl Test 01/16/17 00:08 01/16/17 04:42 01/16/17 06:13 01/16/17 08:01 Bedside Glucose 232 mg/dl 182 mg/dl 191 mg/dl White Blood Count 11.67 K/uL Red Blood Count 4.60 M/uL Hemoglobin 12.8 g/dL Hematocrit 41.2 % Mean Corpuscular Volume 89.6 fL Mean Corpuscular Hemoglobin 27.8 pg Mean Corpuscular Hemoglobin Concent 31.1 g/dl RDW Standard Deviation 53.3 fL RDW Coefficient of Variation 16.4 % Platelet Count 243 K/uL Mean Platelet Volume 11.0 fL Sodium Level 145 mmol/L Potassium Level 3.3 mmol/L Chloride Level 109 mmol/L Carbon Dioxide Level 31 mmol/L Anion Gap 5.0 mmol/L Blood Urea Nitrogen 30 mg/dl Creatinine 1.40 mg/dl Est Creatinine Clear Calc Drug Dose 49.3 ml/min Estimated GFR () 57.0 Estimated GFR (Non- 49.1 BUN/Creatinine Ratio 21.2 Random Glucose 188 mg/dl Estimated Average Glucose 186 mg/dl Hemoglobin A1c 8.1 % Calcium Level 8.8 mg/dl Test 01/16/17 11:30 Bedside Glucose 201 mg/dl
[2017-01-16] MEDS: ATORVASTATIN 20 MG TAB PO SCH (16:58)
--- NOTE | 2017-01-16 17:43 | Progress Note ---
Medicine Progress Note Date & Time of Visit: Jan 16, 2017 at 17:36. Subjective Pt was seen and examined sitting in bed comfortable eating dinner pt said that breathing feels slightly better he said that he cannot cough out the phlegm denies any chest pain, palpitation, dizziness and fever Objective Last 8 Hrs Date Time Temp Pulse Resp B/P (MAP) Pulse Ox O2 Delivery O2 Flow Rate FiO2 01/16/17 16:18 53 18 97 Nasal Cannula 2.0 01/16/17 15:55 36.3 54 20 134/76 (95) 97 Nasal Cannula 2.0 01/16/17 12:46 84 91 01/16/17 11:34 36.5 68 20 136/72 (93) 97 Nasal Cannula 3.0 01/16/17 11:12 54 18 95 Nasal Cannula 2.0 Physical Exam: General- no acute distress Head- atraumatic Eyes- PERRL, EOMI ENT- oropharynx clear Neck- supple, no JVD Lungs- crackles Heart- regular rhythm; no murmur Abdomen- normal bowel sounds, soft Extremities- no calf tenderness Neuro- alert, oriented x 3; PERRL, EOMI; no facial palsy Skin- warm & dry Laboratory Results: Last 24 Hours Test 01/15/17 20:31 01/15/17 20:38 01/15/17 21:35 01/16/17 00:08 Bedside Glucose 238 mg/dl 217 mg/dl 219 mg/dl 232 mg/dl Test 01/16/17 04:42 01/16/17 06:13 01/16/17 08:01 01/16/17 11:30 Bedside Glucose 182 mg/dl 191 mg/dl 201 mg/dl White Blood Count 11.67 K/uL Red Blood Count 4.60 M/uL Hemoglobin 12.8 g/dL Hematocrit 41.2 % Mean Corpuscular Volume 89.6 fL Mean Corpuscular Hemoglobin 27.8 pg Mean Corpuscular Hemoglobin Concent 31.1 g/dl RDW Standard Deviation 53.3 fL RDW Coefficient of Variation 16.4 % Platelet Count 243 K/uL Mean Platelet Volume 11.0 fL Sodium Level 145 mmol/L Potassium Level 3.3 mmol/L Chloride Level 109 mmol/L Carbon Dioxide Level 31 mmol/L Anion Gap 5.0 mmol/L Blood Urea Nitrogen 30 mg/dl Creatinine 1.40 mg/dl Est Creatinine Clear Calc Drug Dose 49.3 ml/min Estimated GFR () 57.0 Estimated GFR (Non- 49.1 BUN/Creatinine Ratio 21.2 Random Glucose 188 mg/dl Estimated Average Glucose 186 mg/dl Hemoglobin A1c 8.1 % Calcium Level 8.8 mg/dl Test 01/16/17 16:29 Bedside Glucose 146 mg/dl Date/Time Source Procedure Growth Status 01/16/17 17:20 Sputum Expectorated Sputum Gram Stain Pending Valerie Batch 01/16/17 17:20 Sputum Expectorated Sputum Sputum Culture Pending Valerie Batch Assessment & Plan SHORTNESS OF BREATH CHRONIC HYPOXIC RESPIRATORY FAILURE Due to COPD exacerbation secondary to multifocal pneumonia, health care associated, possible aspiration Has underlying severe COPD and idiopathic sleep related nonobstructive alveolar hypoventilation Recently discharge from [facility] for COPD exacerbation, left upper and lower lobe pneumonia, tested + for parainfluenza virus; treated with ceftriaxone, azithromycin, IV Solu-Medrol, nebs, BiPAP PRN; seen by pulmonology ; and was d/c on Levaquin and prednisone taper CTA chest showed multifocal pneumonia left lower lobe and to a lesser degree the lingula. Continue Zosyn Will d/c vanco Continue IV Solu-Medrol 40 mg TID and Duoneb QID On budesonide and formoterol nebs, acetylcysteine, Incruse Ellipta inhaler, Singulair, Daliresp Speech consult recommended to continue mechanical soft diet pulmonology and plan to do Bronchoscopy tomorrow Continue chronic O2 2 liters nasal cannula, BiPAP HS 01/15 S/P Bronch done today showed mucus plug, multifocal pneumonia and hemoptysis D/C IV vanco Continue IV zosyn Video swallow done showed intermittent silent aspiration of solids. Case discussed with speech therapist moderate-severe itzel-pharyngeal dysphagia. Recommended Mechanical soft diet and NECTAR thick liquids. NO straws. NO mixed consistencies 01/16 S/p bronch yesterday Continue to feel congested case discussed with pulmonology recommend chest PT aspiration precaution continue zosyn, steroid and home resp med will need repeat CT chest in 6 weeks to check for complete resolution HX MILD DIASTOLIC DYSFUNCTION/ HX S/P AVR 03/2014 ON Lasix 40 mg PO daily stable HYPERTENSION BP stable Continue metoprolol DM TYPE 2 A1c 7.3 in 10/2016 Hold glimepiride NovoLog sliding scale CEREBROVASCULAR DISEASE Continue Plavix, statin ANXIETY/ DEPRESSION Continue Paxil and PRN Klonopin ? PULMONARY NODULE CTA chest- Solid 13 mm pulmonary nodule at the right lower lobe may be another site of infection/pneumonia. However, follow-up after treatment to ensure resolution is recommended. DVT PROPHYLAXIS On Lovenox CODE STATUS DNR Consultants: Pulmonary Procedures: Bronchoscopy Current Inpatient Medications: Current Inpatient Medications Medications (Trade) Dose Ordered Sig/Aj Route Start Time Stop Time Status Last Admin Dose Admin Ioversol (Optiray 320) 125 ml UD PRN IV 01/13/17 09:15 01/17/17 09:14 Albuterol/ Ipratropium (Duoneb) 3 ml QIDR INH 01/13/17 12:00 02/12/17 11:59 01/16/17 16:18 3 ML Enoxaparin Sodium (Lovenox Inj) 40 mg Q24H SQ 01/13/17 21:00 02/12/17 20:59 01/15/17 21:24 40 MG Acetaminophen (Tylenol Tab) 650 mg Q4H PRN PO 01/13/17 11:45 02/12/17 11:44 01/13/17 16:59 650 MG Ondansetron HCl (Zofran Inj) 4 mg Q6H PRN IV 01/13/17 11:45 02/12/17 11:44 Insulin Aspart (novoLOG ASPART) SLIDING SCALE If C... ACHS SC 01/13/17 16:00 02/12/17 15:59 01/16/17 13:24 14 UNITS Glucose (Glucose 40% Gel) 15-30 GRAMS 15 GRAMS... UD PRN PO 01/13/17 12:00 02/12/17 11:59 Glucose (Glucose Chew Tab) 4-8 Tablets 4 Tabl... UD PRN PO 01/13/17 12:00 02/12/17 11:59 Dextrose (Dextrose 50% 50ML Syringe) 25-50ML OF 50% DW IV FOR... UD PRN IV 01/13/17 12:00 02/12/17 11:59 Glucagon (Glucagon Inj) 1 mg UD PRN SQ 01/13/17 12:00 02/12/17 11:59 Acetylcysteine (Mucomyst 20% Inh Soln) 3 ml BIDR INH 01/13/17 20:00 02/12/17 19:59 01/16/17 06:57 3 ML Albuterol (Ventolin Hfa Inhaler) 2 puffs Q4H PRN INH 01/13/17 12:00 02/12/17 11:59 Atorvastatin Calcium (Lipitor Tab) 20 mg DAILYBD PO 01/13/17 16:00 02/12/17 15:59 01/16/17 16:58 20 MG Clonazepam (Klonopin Tab) 0.5 mg Q8H PRN PO 01/13/17 12:00 02/12/17 11:59 01/13/17 20:31 0.5 MG Clopidogrel Bisulfate (plAVix TAB) 75 mg DAILY PO 01/14/17 09:00 02/13/17 08:59 01/16/17 09:21 75 MG Docusate Sodium (coLACE CAP) 100 mg BID PO 01/13/17 21:00 02/12/17 20:59 01/16/17 09:21 100 MG Ferrous Gluconate (Ferrous Gluconate Tab) 324 mg BIDM PO 01/13/17 17:00 02/12/17 17:59 01/16/17 16:57 324 MG Finasteride (Proscar Tab) 5 mg DAILY PO 01/14/17 09:00 02/13/17 08:59 01/16/17 09:23 5 MG Fluticasone Propionate (Flonase Nasal [place]) 2 sprays DAILY LISETTE 01/14/17 09:00 02/13/17 08:59 01/16/17 09:23 2 SPRAYS Formoterol Fumarate (Perforomist 20MCG/2ML Neb Soln) 20 mcg BIDR INH 01/13/17 20:00 02/12/17 19:59 01/16/17 06:57 20 MCG Furosemide (Lasix Tab) 40 mg DAILY PO 01/14/17 09:00 02/13/17 08:59 01/16/17 09:22 40 MG Guaifenesin (Mucinex Contr Rel Tab) 600 mg Q12 PO 01/13/17 21:00 02/12/17 20:59 01/16/17 09:23 600 MG Metoprolol Tartrate (Lopressor Tab) 25 mg Q12 PO 01/13/17 21:00 02/12/17 20:59 01/16/17 09:22 25 MG Montelukast Sodium (Singulair Tab) 10 mg QPM PO 01/13/17 21:00 02/12/17 20:59 01/15/17 21:26 10 MG Nicotine (Nicoderm Cq 14MG Patch) 1 patch DAILY TD 01/14/17 09:00 02/13/17 08:59 01/16/17 09:23 1 PATCH Pantoprazole Sodium (Protonix Tab) 40 mg DAILYBB PO 01/14/17 06:30 02/13/17 06:59 01/16/17 05:06 40 MG Paroxetine HCl (pAXil TAB) 20 mg DAILY PO 01/14/17 09:00 02/13/17 08:59 01/16/17 09:22 20 MG Pregabalin (Lyrica Cap) 150 mg BID PO 01/13/17 21:00 02/12/17 20:59 01/16/17 09:21 150 MG Roflumilast (Daliresp Tab) 500 mcg DAILY PO 01/14/17 09:00 02/13/17 08:59 01/16/17 09:23 500 MCG Senna/Docusate Sodium (Senokot S Tab) 1 tab HS PO 01/13/17 21:00 02/12/17 20:59 01/13/17 20:32 1 TAB Cholecalciferol (Vitamin D Tab) 6,000 inter.unit DAILYBB PO 01/14/17 06:30 02/13/17 06:59 01/16/17 05:07 6,000 INTER.UNIT Miscellaneous Information (Order Awaiting Action) 1 ea QS N/A 01/13/17 16:00 02/12/17 15:59 Methylprednisolone Sodium Succinate 40 mg/Syringe 0.64 ml @ 1.5 mls/min Q8 IV 01/13/17 22:00 02/12/17 21:59 01/16/17 13:25 1.5 MLS/MIN Piperacillin Sod/ Tazobactam Sod (Consult) 1 ea UD N/A 01/13/17 13:56 02/12/17 13:55 Miscellaneous (Remove Nicoderm Patch) 1 ea HS N/A 01/13/17 21:00 02/12/17 20:59 01/15/17 21:30 1 EA Budesonide (Pulmicort Respules 0.25MG/ 2ML Neb Soln) 0.25 mg BIDR INH 01/13/17 20:00 02/12/17 19:59 01/16/17 06:57 0.25 MG Piperacillin Sod/ Tazobactam Sod 3.375 gm/Dextrose 115 ml @ 28.75 mls/ hr Q8@0000,0800,1600 IV 01/14/17 00:00 01/21/17 00:00 01/16/17 16:52 28.75 MLS/HR Tramadol HCl (Ultram Tab) 50 mg Q6 PRN PO 01/13/17 19:30 02/12/17 19:29 01/16/17 09:32 50 MG Miscellaneous Information (Consult Glycemic Management Pharmacy) 1 ea UD PRN N/A 01/15/17 18:44 02/14/17 18:43 Insulin Aspart (novoLOG ASPART) SLIDING SCALE If C... TODAY@0000,0400 [place] 01/17/17 00:00 01/17/17 04:01 Insulin Glargine (Lantus Solostar Pen) SEE PROTOCOL BID SC 01/16/17 20:00 02/15/17 19:59 Acetylcysteine (Mucomyst 20% Inh Soln) 3 ml BID INH 01/16/17 20:00 02/15/17 19:59 UNV
[2017-01-16] MEDS ORDERED: ACETYLCYSTEINE 20% INHAL SOLN ***DISPENSED BY RESP. INH SCH (20:00)
[2017-01-16] MEDS: MONTELUKAST SOD 10 MG TAB PO SCH (20:13)
[2017-01-16] MEDS: ENOXAPARIN 40 MG/0.4 ML SYR SQ SCH (20:14)
[2017-01-16] MEDS: INSULIN GLARGINE SOLOSTAR 100 UNITS/ML 3 ML PEN SC SCH (20:37)
[2017-01-16] MEDS: DOCUSATE SODIUM/SENNA 50/8.6MG TAB PO SCH (22:00)
[2017-01-17] VITALS (10 sets, daily range): BP systolic 124–167; BP diastolic 78–91; PULSE 43–85; TEMP 36.3–36.6; O2SAT 94–97
[2017-01-17] MEDS: PIPERACILL/TAZOBAC IV 3.375 GM in DEXTROSE 5% 100ML IV SCH ×3 (00:12→16:49)
[2017-01-17] MEDS: INSULIN ASPART 100 UNITS/ML 3 ML PEN SC SCH ×6 (00:18→21:05)
[2017-01-17 00:55] LABS: BASO % 0.1 %; BASO ABS # 0.01 K/uL (0-0.2); COMPLETE YES; HEMATOCRIT 37.2 % (42-52); IG% 1.9 %; LYMPH ABS # 0.43 K/uL (1.2-3.4); MEAN CELL VOLUME 86.9 fL (80-100); MEAN CORPUSCULAR HEMOGLOBIN 29.2 pg (25-34); MEAN CORPUSCULAR HGB CONC 33.6 g/dl (32-36); MEAN PLATELET VOLUME 10.9 fL (7.4-10.4); MONO % 6.3 %; NEUT % 88.7 %; PLATELET COUNT 204 K/uL (130-400); RED BLOOD COUNT 4.28 M/uL (4.7-6.1); WHITE BLOOD COUNT 14.15 K/uL (4.8-10.8)
[2017-01-17 00:57] LABS: ARTERIAL BLD GAS O2 SATURATION 96.7 % (90-95); ARTERIAL BLOOD GAS BASE EXCESS 3.8 mEq/L (-9-1.8); ARTERIAL BLOOD GAS HCO3 28 mmol/L (19-24); ARTERIAL BLOOD GAS PO2 86 mm/Hg (80-95); ARTERIAL BLOOD GAS pH 7.45 (7.35-7.45)
[2017-01-17 01:19] LABS: BUN/CREATININE RATIO 26.5 (10-20); CALCIUM 8.5 mg/dl (8.5-10.1); CREATININE 1.1 mg/dl (0.60-1.40); POTASSIUM 3.3 mmol/L (3.5-5.1)
[2017-01-17] MEDS ORDERED: POTASSIUM CHLORIDE 10 MEQ TABCR PO STA (01:21)
[2017-01-17 01:29] LABS: ALLEN TEST POS (POS); O2 ADMINISTRATION 2L; THYROID STIMULATING HORMONE 1.55 uIu/ml (0.300-4.500)
[2017-01-17] MEDS ORDERED: POTASSIUM CHLORIDE 10 MEQ TABCR PO ONE (04:00)
[2017-01-17] MEDS: PANTOprazole SOD 40 MG TAB PO SCH (06:13)
[2017-01-17] MEDS: CHOLECALCIFEROL 1000 INTER.UNIT TAB PO SCH (06:13)
[2017-01-17] MEDS: METHYLPREDNISOLONE IV 40 MG in SYRINGE 0 ML IV SCH ×3 (06:13→21:19)
[2017-01-17] MEDS: ALBUT/IPRATROP 3MG/0.5MG NEB 3 ML VIAL INH SCH ×5 (07:44→21:31)
[2017-01-17] MEDS: ACETYLCYSTEINE 20% INHAL SOLN ***DISPENSED BY RESP. INH SCH ×2 (07:44→19:07)
[2017-01-17] MEDS: FORMOTEROL FUMA NEBULIZER SOLN 20 MCG/2 ML VIAL INH SCH ×2 (07:44→19:08)
[2017-01-17] MEDS: BUDESONIDE 0.25 MG/2 ML VIAL (PULMICORT) INH SCH ×2 (07:44→19:08)
[2017-01-17] MEDS: PAROXETINE 20 MG TAB PO SCH (07:58)
[2017-01-17] MEDS: FERROUS GLUCONATE 324 MG TAB PO SCH ×2 (07:58→16:48)
[2017-01-17] MEDS: GUAIFENESIN 600 MG TABCR PO SCH ×2 (07:58→20:50)
[2017-01-17] MEDS: FUROSEMIDE 40 MG TAB PO SCH (07:58)
[2017-01-17] MEDS: FINASTERIDE 5 MG TAB PO SCH (07:59)
[2017-01-17] MEDS: NICOTINE 14 MG/24 HR TDSY TD SCH (07:59)
[2017-01-17] MEDS: CLOPIDOGREL BISULFATE 75 MG TAB PO SCH (07:59)
[2017-01-17] MEDS: ROFLUMILAST 500 MCG TAB PO SCH (07:59)
[2017-01-17] MEDS: DOCUSATE SODIUM 100 MG CAP PO SCH ×2 (08:00→20:57)
[2017-01-17] MEDS: METOPROLOL TARTRATE 25 MG TAB PO SCH ×2 (08:02→20:58)
[2017-01-17] MEDS: POTASSIUM CHLORIDE 10 MEQ TABCR PO SCH ×2 (08:03→20:49)
[2017-01-17] MEDS: FLUTICASONE PROPIONATE NA SPR 16 GM BTL NAE SCH (08:05)
[2017-01-17] MEDS: PREGABALIN 150 MG CAP PO SCH ×2 (08:32→20:49)
[2017-01-17] MEDS: INSULIN GLARGINE SOLOSTAR 100 UNITS/ML 3 ML PEN SC SCH (08:42)
[2017-01-17] MEDS ORDERED: POTASSIUM CHLORIDE 20 MEQ TABCR PO ONE (08:45)
--- NOTE | 2017-01-17 14:06 | Pharmacy Progress Note ---
Glycemic Control Progress Note Date of Service Jan 17, 2017. Scope Glycemic Pharmacist consulted for glycemic control to write orders per [facility] inpatient glycemic control protocol. Objective Accuchecks BSG (last 24hrs): Test 01/16/17 16:29 01/16/17 20:26 01/16/17 22:01 01/16/17 23:52 Bedside Glucose 146 mg/dl (70-99) 212 mg/dl (70-99) 259 mg/dl (70-99) 221 mg/dl (70-99) Test 01/17/17 00:44 01/17/17 04:07 01/17/17 07:52 01/17/17 11:28 Random Glucose 212 mg/dl (70-99) Bedside Glucose 191 mg/dl (70-99) 120 mg/dl (70-99) 182 mg/dl (70-99) HbA1c: Test 01/16/17 06:13 Hemoglobin A1c 8.1 % (4.5-5.6) H Recent Pertinent Medications The patient is currently receiving: * Basal insulin: Lantus 20 units SQ twice daily * Correctional Insulin: Novolog Correction per scale ACHS Goal Range: Low 110 mg/dL - High 140 mg/dL Correction Factor: 20 mg/dL/unit * Prandial insulin: Per carb ratio of 1 unit per 6 grams CHO consumed Outpatient Anti-Diabetic Meds glimepiride 2 mg PO BIDM Novolog ACHS Assessment & Plan ASSESSMENT: * See progress note from 01/15/17 for more background info, in short: Mr Mccarty is a 76 y/o M admitted with aspiration PNA from the [facility]. * Pt receiving SQ basal bolus insulin regimen for hyperglycemia secondary to baseline DM (outpatient regimen on hold), possible aspiration pneumonia on Zosyn , POD 2 for bronchoscopy, and type 2 diabetic diet * Patient is currently receiving an average of ~80 units of insulin per day * 40 units of basal insulin * 43 units of prandial/correctional insulin * BSGs ranging 146-259 mg/dl over the past 24hrs * Changes needed to insulin regimen: * AM Fasting BSG = 120 mg/dl. This is within goal range for patient based on inpatient targets and co-morbidities. Patient currently has continued orders for Solu-Medrol 40 mg IV q 8 hours. Patient received Lantus 40 units SQ yesterday which was half of his insulin requirements. Will reduce Lantus to 15 units twice daily to create a 60/40 basal/bolus split. Correctional insulin tightened appropriately. * Post-prandial BSGs are elevated/BSGs rise throughout the day therefore need to tighten CF/CR. Will tighten to slightly tighter than weight based stress of 3. Reduced basal insulin to accommodate this shift. * Total daily dose = ~50 units. Will truly depend on steroids maintenance. Please note if patient is continued on this regimen, he may require an insulin infuse due to extreme glucose needs. PLAN FOR INPATIENT GLYCEMIC CONTROL: * START Lantus to 15 units SQ BID * TIGHTEN correction factor to 12 mg/dl/unit * TIGHTEN carb ratio to 1 unit per 4 grams CHO consumed * Continuing goal range of Low 110 mg/dL - High 140 mg/dL RECOMMENDATIONS FOR DISCHARGE: * patient's outpatient regimen is elevated. Recommend the following: * discontinue glimepiride (increased risk of hypoglycemia in the elderly) * start Lantus 15 units once daily (0.2 units/kg/day) Thank you.
--- NOTE | 2017-01-17 16:05 | Progress Note ---
Medicine Progress Note Date & Time of Visit: Jan 17, 2017 at 16:00. Subjective Pt was seen and examined sitting in bed with no distress Pt said that he continue to cough he said that he continues cannot bring the phlegm up when coughing he still sounds very congested Denies any chest pain, palpitation, fever and chills Objective Last 8 Hrs Date Time Temp Pulse Resp B/P (MAP) Pulse Ox O2 Delivery O2 Flow Rate FiO2 01/17/17 14:54 55 18 97 Nasal Cannula 3.0 01/17/17 14:47 36.3 56 20 167/91 (116) 97 Nasal Cannula 3.0 01/17/17 11:24 76 18 96 Nasal Cannula 3.0 Physical Exam: General- no acute distress Head- atraumatic Eyes- PERRL, EOMI ENT- oropharynx clear Neck- supple, no JVD Lungs- crackles Heart- regular rhythm; no murmur Abdomen- normal bowel sounds, soft Extremities- no calf tenderness Neuro- alert, oriented x 3; PERRL, EOMI; no facial palsy Skin- warm & dry Laboratory Results: Last 24 Hours Test 01/16/17 16:29 01/16/17 20:26 01/16/17 22:01 01/16/17 23:52 Bedside Glucose 146 mg/dl 212 mg/dl 259 mg/dl 221 mg/dl Test 01/17/17 00:44 01/17/17 04:07 01/17/17 07:52 01/17/17 11:28 White Blood Count 14.15 K/uL Red Blood Count 4.28 M/uL Hemoglobin 12.5 g/dL Hematocrit 37.2 % Mean Corpuscular Volume 86.9 fL Mean Corpuscular Hemoglobin 29.2 pg Mean Corpuscular Hemoglobin Concent 33.6 g/dl Platelet Count 204 K/uL Mean Platelet Volume 10.9 fL Neutrophils (%) (Auto) 88.7 % Lymphocytes (%) (Auto) 3.0 % Monocytes (%) (Auto) 6.3 % Eosinophils (%) (Auto) 0.0 % Basophils (%) (Auto) 0.1 % Neutrophils # (Auto) 12.55 K/uL Lymphocytes # (Auto) 0.43 K/uL Monocytes # (Auto) 0.89 K/uL Eosinophils # (Auto) 0.00 K/uL Basophils # (Auto) 0.01 K/uL RDW Standard Deviation 51.2 fL RDW Coefficient of Variation 16.1 % Immature Granulocyte % (Auto) 1.9 % Immature Granulocyte # (Auto) 0.27 K/uL Arterial Blood pH 7.45 Arterial Blood Partial Pressure CO2 42 mmHg Arterial Blood Partial Pressure O2 86 mm/Hg Arterial Blood HCO3 28 mmol/L Arterial Blood Oxygen Saturation 96.7 % Arterial Blood Base Excess 3.8 mEq/L Arterial Blood Gas Delivery 2L Ar Test POS Sodium Level 140 mmol/L Potassium Level 3.3 mmol/L Chloride Level 106 mmol/L Carbon Dioxide Level 29 mmol/L Anion Gap 5.0 mmol/L Blood Urea Nitrogen 29 mg/dl Creatinine 1.10 mg/dl Est Creatinine Clear Calc Drug Dose 62.8 ml/min Estimated GFR () 76.2 Estimated GFR (Non- 65.8 BUN/Creatinine Ratio 26.5 Random Glucose 212 mg/dl Calcium Level 8.5 mg/dl Magnesium Level 2.0 mg/dl Thyroid Stimulating Hormone (TSH) 1.550 uIu/ml Bedside Glucose 191 mg/dl 120 mg/dl 182 mg/dl Date/Time Source Procedure Growth Status 01/16/17 17:20 Sputum Expectorated Sputum Gram Stain - Final Resulted 01/16/17 17:20 Sputum Expectorated Sputum Sputum Culture - Preliminary LIGHT NORMAL ALIZE Present, Final Rep... Resulted Assessment & Plan SHORTNESS OF BREATH CHRONIC HYPOXIC RESPIRATORY FAILURE Due to COPD exacerbation secondary to multifocal pneumonia, health care associated, possible aspiration Has underlying severe COPD and idiopathic sleep related nonobstructive alveolar hypoventilation Recently discharge from [facility] for COPD exacerbation, left upper and lower lobe pneumonia, tested + for parainfluenza virus; treated with ceftriaxone, azithromycin, IV Solu-Medrol, nebs, BiPAP PRN; seen by pulmonology ; and was d/c on Levaquin and prednisone taper CTA chest showed multifocal pneumonia left lower lobe and to a lesser degree the lingula. Continue Zosyn Will d/c vanco Continue IV Solu-Medrol 40 mg TID and Duoneb QID On budesonide and formoterol nebs, acetylcysteine, Incruse Ellipta inhaler, Singulair, Daliresp Speech consult recommended to continue mechanical soft diet pulmonology and plan to do Bronchoscopy tomorrow Continue chronic O2 2 liters nasal cannula, BiPAP HS 01/15 S/P Bronch done today showed mucus plug, multifocal pneumonia and hemoptysis D/C IV vanco Continue IV zosyn Video swallow done showed intermittent silent aspiration of solids. Case discussed with speech therapist moderate-severe itzel-pharyngeal dysphagia. Recommended Mechanical soft diet and NECTAR thick liquids. NO straws. NO mixed consistencies 01/17 S/p bronch on 01/15 Continue to feel congested thick mucus case discussed with pulmonology recommend chest PT aspiration precaution continue zosyn, steroid and home resp med and Mucomyst will need repeat CT chest in 6 weeks to check for complete resolution HX MILD DIASTOLIC DYSFUNCTION/ HX S/P AVR 03/2014 ON Lasix 40 mg PO daily stable HYPERTENSION BP stable Continue metoprolol DM TYPE 2 A1c 7.3 in 10/2016 Hold glimepiride NovoLog sliding scale CEREBROVASCULAR DISEASE Continue Plavix, statin ANXIETY/ DEPRESSION Continue Paxil and PRN Klonopin ? PULMONARY NODULE CTA chest- Solid 13 mm pulmonary nodule at the right lower lobe may be another site of infection/pneumonia. However, follow-up after treatment to ensure resolution is recommended. DVT PROPHYLAXIS On Lovenox CODE STATUS DNR Consultants: Pulmonary Procedures: Bronchoscopy Current Inpatient Medications: Current Inpatient Medications Medications (Trade) Dose Ordered Sig/Aj Route Start Time Stop Time Status Last Admin Dose Admin Albuterol/ Ipratropium (Duoneb) 3 ml QIDR INH 01/13/17 12:00 02/12/17 11:59 01/17/17 14:54 3 ML Enoxaparin Sodium (Lovenox Inj) 40 mg Q24H SQ 01/13/17 21:00 02/12/17 20:59 01/16/17 20:14 40 MG Acetaminophen (Tylenol Tab) 650 mg Q4H PRN PO 01/13/17 11:45 02/12/17 11:44 01/13/17 16:59 650 MG Ondansetron HCl (Zofran Inj) 4 mg Q6H PRN IV 01/13/17 11:45 02/12/17 11:44 Insulin Aspart (novoLOG ASPART) SLIDING SCALE If C... ACHS SC 01/13/17 16:00 02/12/17 15:59 01/17/17 13:22 13 UNITS Glucose (Glucose 40% Gel) 15-30 GRAMS 15 GRAMS... UD PRN PO 01/13/17 12:00 02/12/17 11:59 Glucose (Glucose Chew Tab) 4-8 Tablets 4 Tabl... UD PRN PO 01/13/17 12:00 02/12/17 11:59 Dextrose (Dextrose 50% 50ML Syringe) 25-50ML OF 50% DW IV FOR... UD PRN IV 01/13/17 12:00 02/12/17 11:59 Glucagon (Glucagon Inj) 1 mg UD PRN SQ 01/13/17 12:00 02/12/17 11:59 Acetylcysteine (Mucomyst 20% Inh Soln) 3 ml BIDR INH 01/13/17 20:00 02/12/17 19:59 01/17/17 07:44 3 ML Albuterol (Ventolin Hfa Inhaler) 2 puffs Q4H PRN INH 01/13/17 12:00 02/12/17 11:59 Atorvastatin Calcium (Lipitor Tab) 20 mg DAILYBD PO 01/13/17 16:00 02/12/17 15:59 01/16/17 16:58 20 MG Clonazepam (Klonopin Tab) 0.5 mg Q8H PRN PO 01/13/17 12:00 02/12/17 11:59 01/13/17 20:31 0.5 MG Clopidogrel Bisulfate (plAVix TAB) 75 mg DAILY PO 01/14/17 09:00 02/13/17 08:59 01/17/17 07:59 75 MG Docusate Sodium (coLACE CAP) 100 mg BID PO 01/13/17 21:00 02/12/17 20:59 01/16/17 09:21 100 MG Ferrous Gluconate (Ferrous Gluconate Tab) 324 mg BIDM PO 01/13/17 17:00 02/12/17 17:59 01/17/17 07:58 324 MG Finasteride (Proscar Tab) 5 mg DAILY PO 01/14/17 09:00 02/13/17 08:59 01/17/17 07:59 5 MG Fluticasone Propionate (Flonase Nasal [place]) 2 sprays DAILY LISETTE 01/14/17 09:00 02/13/17 08:59 01/17/17 08:05 2 SPRAYS Formoterol Fumarate (Perforomist 20MCG/2ML Neb Soln) 20 mcg BIDR INH 01/13/17 20:00 02/12/17 19:59 01/17/17 07:44 20 MCG Furosemide (Lasix Tab) 40 mg DAILY PO 01/14/17 09:00 02/13/17 08:59 01/17/17 07:58 40 MG Guaifenesin (Mucinex Contr Rel Tab) 600 mg Q12 PO 01/13/17 21:00 02/12/17 20:59 01/17/17 07:58 600 MG Montelukast Sodium (Singulair Tab) 10 mg QPM PO 01/13/17 21:00 02/12/17 20:59 01/16/17 20:13 10 MG Nicotine (Nicoderm Cq 14MG Patch) 1 patch DAILY TD 01/14/17 09:00 02/13/17 08:59 01/17/17 07:59 1 PATCH Pantoprazole Sodium (Protonix Tab) 40 mg DAILYBB PO 01/14/17 06:30 02/13/17 06:59 01/17/17 06:13 40 MG Paroxetine HCl (pAXil TAB) 20 mg DAILY PO 01/14/17 09:00 02/13/17 08:59 01/17/17 07:58 20 MG Pregabalin (Lyrica Cap) 150 mg BID PO 01/13/17 21:00 02/12/17 20:59 01/17/17 08:32 150 MG Roflumilast (Daliresp Tab) 500 mcg DAILY PO 01/14/17 09:00 02/13/17 08:59 01/17/17 07:59 500 MCG Senna/Docusate Sodium (Senokot S Tab) 1 tab HS PO 01/13/17 21:00 02/12/17 20:59 01/13/17 20:32 1 TAB Cholecalciferol (Vitamin D Tab) 6,000 inter.unit DAILYBB PO 01/14/17 06:30 02/13/17 06:59 01/17/17 06:13 6,000 INTER.UNIT Miscellaneous Information (Order Awaiting Action) 1 ea QS N/A 01/13/17 16:00 02/12/17 15:59 Methylprednisolone Sodium Succinate 40 mg/Syringe 0.64 ml @ 1.5 mls/min Q8 IV 01/13/17 22:00 02/12/17 21:59 01/17/17 13:26 1.5 MLS/MIN Piperacillin Sod/ Tazobactam Sod (Consult) 1 ea UD N/A 01/13/17 13:56 02/12/17 13:55 Miscellaneous (Remove Nicoderm Patch) 1 ea HS N/A 01/13/17 21:00 02/12/17 20:59 01/16/17 22:04 1 EA Budesonide (Pulmicort Respules 0.25MG/ 2ML Neb Soln) 0.25 mg BIDR INH 01/13/17 20:00 02/12/17 19:59 01/17/17 07:44 0.25 MG Piperacillin Sod/ Tazobactam Sod 3.375 gm/Dextrose 115 ml @ 28.75 mls/ hr Q8@0000,0800,1600 IV 01/14/17 00:00 01/21/17 00:00 01/17/17 08:31 28.75 MLS/HR Tramadol HCl (Ultram Tab) 50 mg Q6 PRN PO 01/13/17 19:30 02/12/17 19:29 01/16/17 20:10 50 MG Miscellaneous Information (Consult Glycemic Management Pharmacy) 1 ea UD PRN N/A 01/15/17 18:44 02/14/17 18:43 Metoprolol Tartrate (Lopressor Tab) 12.5 mg Q12 PO 01/17/17 09:00 02/12/17 20:59 Potassium Chloride (Klor-Con M10) 20 meq BID PO 01/17/17 08:00 02/16/17 07:59 01/17/17 08:03 20 MEQ Insulin Glargine (Lantus Solostar Pen) 15 units BID SC 01/17/17 20:00 02/16/17 19:59 Insulin Aspart (novoLOG ASPART) SLIDING SCALE If C... TODAY@0000,0400 SC 01/18/17 00:00 01/18/17 04:01
[2017-01-17] MEDS: ATORVASTATIN 20 MG TAB PO SCH (16:48)
[2017-01-17] MEDS: TRAMADOL HCL 50 MG TAB PO PRN ×2 (16:59→23:05)
[2017-01-17] MEDS ORDERED: INSULIN GLARGINE SOLOSTAR 100 UNITS/ML 3 ML PEN SC SCH (20:00)
[2017-01-17] MEDS: ENOXAPARIN 40 MG/0.4 ML SYR SQ SCH (20:48)
[2017-01-17] MEDS: MONTELUKAST SOD 10 MG TAB PO SCH (20:49)
[2017-01-17] MEDS: DOCUSATE SODIUM/SENNA 50/8.6MG TAB PO SCH (20:57)
[2017-01-17] MEDS ORDERED: INSULIN GLARGINE SOLOSTAR 100 UNITS/ML 3 ML PEN SC STA (21:29)
[2017-01-18] VITALS (9 sets, daily range): BP systolic 103–143; BP diastolic 65–85; PULSE 48–117; TEMP 36.4–36.7; O2SAT 89–99
[2017-01-18] MEDS: PIPERACILL/TAZOBAC IV 3.375 GM in DEXTROSE 5% 100ML IV SCH ×4 (00:07→23:44)
[2017-01-18] MEDS: INSULIN ASPART 100 UNITS/ML 3 ML PEN SC SCH ×6 (00:09→20:31)
[2017-01-18] MEDS: METHYLPREDNISOLONE IV 40 MG in SYRINGE 0 ML IV SCH ×3 (06:10→22:03)
[2017-01-18] MEDS: PANTOprazole SOD 40 MG TAB PO SCH (06:11)
[2017-01-18] MEDS: CHOLECALCIFEROL 1000 INTER.UNIT TAB PO SCH (06:11)
[2017-01-18] MEDS: FORMOTEROL FUMA NEBULIZER SOLN 20 MCG/2 ML VIAL INH SCH ×2 (06:59→20:23)
[2017-01-18] MEDS: ALBUT/IPRATROP 3MG/0.5MG NEB 3 ML VIAL INH SCH ×3 (07:00→15:17)
[2017-01-18] MEDS: BUDESONIDE 0.25 MG/2 ML VIAL (PULMICORT) INH SCH ×2 (07:00→20:23)
[2017-01-18 07:10] LABS: HEMATOCRIT 42.3 % (42-52); MEAN CELL VOLUME 88.7 fL (80-100); MEAN CORPUSCULAR HEMOGLOBIN 27.5 pg (25-34); MEAN PLATELET VOLUME 10.8 fL (7.4-10.4); PLATELET COUNT 213 K/uL (130-400); RED BLOOD COUNT 4.77 M/uL (4.7-6.1); WHITE BLOOD COUNT 13.22 K/uL (4.8-10.8)
[2017-01-18 07:38] LABS: CREATININE 1.2 mg/dl (0.60-1.40)
[2017-01-18] MEDS: DOCUSATE SODIUM 100 MG CAP PO SCH ×2 (07:57→20:00)
[2017-01-18] MEDS ORDERED: INSULIN GLARGINE SOLOSTAR 100 UNITS/ML 3 ML PEN SC SCH ×2 (08:00)
[2017-01-18] MEDS: PAROXETINE 20 MG TAB PO SCH (08:12)
[2017-01-18] MEDS: FINASTERIDE 5 MG TAB PO SCH (08:12)
[2017-01-18] MEDS: PREGABALIN 150 MG CAP PO SCH ×2 (08:12→20:01)
[2017-01-18] MEDS: GUAIFENESIN 600 MG TABCR PO SCH ×2 (08:12→20:00)
[2017-01-18] MEDS: FLUTICASONE PROPIONATE NA SPR 16 GM BTL NAE SCH (08:12)
[2017-01-18] MEDS: FUROSEMIDE 40 MG TAB PO SCH (08:12)
[2017-01-18] MEDS: POTASSIUM CHLORIDE 10 MEQ TABCR PO SCH ×2 (08:12→20:01)
[2017-01-18] MEDS: FERROUS GLUCONATE 324 MG TAB PO SCH ×2 (08:12→16:33)
[2017-01-18] MEDS: CLOPIDOGREL BISULFATE 75 MG TAB PO SCH (08:13)
[2017-01-18] MEDS: NICOTINE 14 MG/24 HR TDSY TD SCH (08:13)
[2017-01-18] MEDS: METOPROLOL TARTRATE 25 MG TAB PO SCH ×2 (08:13→20:02)
[2017-01-18] MEDS: ROFLUMILAST 500 MCG TAB PO SCH (08:14)
[2017-01-18] MEDS: INSULIN GLARGINE SOLOSTAR 100 UNITS/ML 3 ML PEN SC SCH ×2 (08:28→20:29)
[2017-01-18] MEDS: ACETYLCYSTEINE 20% INHAL SOLN ***DISPENSED BY RESP. INH SCH (10:16)
[2017-01-18] MEDS: TRAMADOL HCL 50 MG TAB PO PRN ×2 (12:23→19:59)
[2017-01-18] MEDS: ATORVASTATIN 20 MG TAB PO SCH (16:32)
--- NOTE | 2017-01-18 18:43 | Progress Note ---
Medicine Progress Note Date & Time of Visit: Jan 18, 2017 at 18:38. Subjective Pt was seen and examined Sitting in bed with no acute distress pt said that his breathing slightly improved he said that his cough is starting to get loose He said that he started to bring up the phlegm denies any chest pain, palpitation, fever and chills Objective Last 8 Hrs Date Time Temp Pulse Resp B/P (MAP) Pulse Ox O2 Delivery O2 Flow Rate FiO2 01/18/17 17:25 97 Nasal Cannula 01/18/17 15:00 36.4 82 20 143/85 (104) 97 Nasal Cannula 3.0 01/18/17 13:13 117 91 Physical Exam: General- no acute distress Head- atraumatic Eyes- PERRL, EOMI ENT- oropharynx clear Neck- supple, no JVD Lungs- crackles Heart- regular rhythm; no murmur Abdomen- normal bowel sounds, soft Extremities- no calf tenderness Neuro- alert, oriented x 3; PERRL, EOMI; no facial palsy Skin- warm & dry Laboratory Results: Last 24 Hours Test 01/17/17 20:01 01/17/17 23:54 01/18/17 03:59 01/18/17 06:36 Bedside Glucose 225 mg/dl 183 mg/dl 178 mg/dl White Blood Count 13.22 K/uL Red Blood Count 4.77 M/uL Hemoglobin 13.1 g/dL Hematocrit 42.3 % Mean Corpuscular Volume 88.7 fL Mean Corpuscular Hemoglobin 27.5 pg Mean Corpuscular Hemoglobin Concent 31.0 g/dl RDW Standard Deviation 52.9 fL RDW Coefficient of Variation 16.4 % Platelet Count 213 K/uL Mean Platelet Volume 10.8 fL Creatinine 1.20 mg/dl Est Creatinine Clear Calc Drug Dose 57.5 ml/min Estimated GFR () 68.6 Estimated GFR (Non- 59.2 Test 01/18/17 07:43 01/18/17 11:55 01/18/17 16:50 Bedside Glucose 101 mg/dl 146 mg/dl 118 mg/dl Assessment & Plan SHORTNESS OF BREATH CHRONIC HYPOXIC RESPIRATORY FAILURE Due to COPD exacerbation secondary to multifocal pneumonia, health care associated, possible aspiration Has underlying severe COPD and idiopathic sleep related nonobstructive alveolar hypoventilation Recently discharge from [facility] for COPD exacerbation, left upper and lower lobe pneumonia, tested + for parainfluenza virus; treated with ceftriaxone, azithromycin, IV Solu-Medrol, nebs, BiPAP PRN; seen by pulmonology ; and was d/c on Levaquin and prednisone taper CTA chest showed multifocal pneumonia left lower lobe and to a lesser degree the lingula. Continue Zosyn Will d/c vanco Continue IV Solu-Medrol 40 mg TID and Duoneb QID On budesonide and formoterol nebs, acetylcysteine, Incruse Ellipta inhaler, Singulair, Daliresp Speech consult recommended to continue mechanical soft diet pulmonology and plan to do Bronchoscopy tomorrow Continue chronic O2 2 liters nasal cannula, BiPAP HS 01/15 S/P Bronch done today showed mucus plug, multifocal pneumonia and hemoptysis D/C IV vanco Continue IV zosyn Video swallow done showed intermittent silent aspiration of solids. Case discussed with speech therapist moderate-severe itzel-pharyngeal dysphagia. Recommended Mechanical soft diet and NECTAR thick liquids. NO straws. NO mixed consistencies 01/18 S/p bronch on 01/15 Continue to feel congested Mucus started to get loose Continue chest PT aspiration precaution continue zosyn, steroid and home resp med and Mucomyst will repeat CT chest in 6 weeks to check for complete resolution HX MILD DIASTOLIC DYSFUNCTION/ HX S/P AVR 03/2014 ON Lasix 40 mg PO daily stable HYPERTENSION BP stable Continue metoprolol DM TYPE 2 A1c 7.3 in 10/2016 Hold glimepiride NovoLog sliding scale CEREBROVASCULAR DISEASE Continue Plavix, statin ANXIETY/ DEPRESSION Continue Paxil and PRN Klonopin ? PULMONARY NODULE CTA chest- Solid 13 mm pulmonary nodule at the right lower lobe may be another site of infection/pneumonia. However, follow-up after treatment to ensure resolution is recommended. DVT PROPHYLAXIS On Lovenox CODE STATUS DNR Consultants: Pulmonary Procedures: Bronchoscopy Current Inpatient Medications: Current Inpatient Medications Medications (Trade) Dose Ordered Sig/Aj Route Start Time Stop Time Status Last Admin Dose Admin Albuterol/ Ipratropium (Duoneb) 3 ml QIDR INH 01/13/17 12:00 02/12/17 11:59 01/18/17 15:17 3 ML Enoxaparin Sodium (Lovenox Inj) 40 mg Q24H SQ 01/13/17 21:00 02/12/17 20:59 01/17/17 20:48 40 MG Acetaminophen (Tylenol Tab) 650 mg Q4H PRN PO 01/13/17 11:45 02/12/17 11:44 01/13/17 16:59 650 MG Ondansetron HCl (Zofran Inj) 4 mg Q6H PRN IV 01/13/17 11:45 02/12/17 11:44 Insulin Aspart (novoLOG ASPART) SLIDING SCALE If C... ACHS SC 01/13/17 16:00 02/12/17 15:59 01/18/17 12:22 9 UNITS Glucose (Glucose 40% Gel) 15-30 GRAMS 15 GRAMS... UD PRN PO 01/13/17 12:00 02/12/17 11:59 Glucose (Glucose Chew Tab) 4-8 Tablets 4 Tabl... UD PRN PO 01/13/17 12:00 02/12/17 11:59 Dextrose (Dextrose 50% 50ML Syringe) 25-50ML OF 50% DW IV FOR... UD PRN IV 01/13/17 12:00 02/12/17 11:59 Glucagon (Glucagon Inj) 1 mg UD PRN SQ 01/13/17 12:00 02/12/17 11:59 Acetylcysteine (Mucomyst 20% Inh Soln) 3 ml BIDR INH 01/13/17 20:00 02/12/17 19:59 01/18/17 10:16 3 ML Albuterol (Ventolin Hfa Inhaler) 2 puffs Q4H PRN INH 01/13/17 12:00 02/12/17 11:59 Atorvastatin Calcium (Lipitor Tab) 20 mg DAILYBD PO 01/13/17 16:00 02/12/17 15:59 01/18/17 16:32 20 MG Clonazepam (Klonopin Tab) 0.5 mg Q8H PRN PO 01/13/17 12:00 02/12/17 11:59 01/13/17 20:31 0.5 MG Clopidogrel Bisulfate (plAVix TAB) 75 mg DAILY PO 01/14/17 09:00 02/13/17 08:59 01/18/17 08:13 75 MG Docusate Sodium (coLACE CAP) 100 mg BID PO 01/13/17 21:00 02/12/17 20:59 01/16/17 09:21 100 MG Ferrous Gluconate (Ferrous Gluconate Tab) 324 mg BIDM PO 01/13/17 17:00 02/12/17 17:59 01/18/17 16:33 324 MG Finasteride (Proscar Tab) 5 mg DAILY PO 01/14/17 09:00 02/13/17 08:59 01/18/17 08:12 5 MG Fluticasone Propionate (Flonase Nasal [place]) 2 sprays DAILY LISETTE 01/14/17 09:00 02/13/17 08:59 01/18/17 08:12 2 SPRAYS Formoterol Fumarate (Perforomist 20MCG/2ML Neb Soln) 20 mcg BIDR INH 01/13/17 20:00 02/12/17 19:59 01/18/17 06:59 20 MCG Furosemide (Lasix Tab) 40 mg DAILY PO 01/14/17 09:00 02/13/17 08:59 01/18/17 08:12 40 MG Guaifenesin (Mucinex Contr Rel Tab) 600 mg Q12 PO 01/13/17 21:00 02/12/17 20:59 01/18/17 08:12 600 MG Montelukast Sodium (Singulair Tab) 10 mg QPM PO 01/13/17 21:00 02/12/17 20:59 01/17/17 20:49 10 MG Nicotine (Nicoderm Cq 14MG Patch) 1 patch DAILY TD 01/14/17 09:00 02/13/17 08:59 01/18/17 08:13 1 PATCH Pantoprazole Sodium (Protonix Tab) 40 mg DAILYBB PO 01/14/17 06:30 02/13/17 06:59 01/18/17 06:11 40 MG Paroxetine HCl (pAXil TAB) 20 mg DAILY PO 01/14/17 09:00 02/13/17 08:59 01/18/17 08:12 20 MG Pregabalin (Lyrica Cap) 150 mg BID PO 01/13/17 21:00 02/12/17 20:59 01/18/17 08:12 150 MG Roflumilast (Daliresp Tab) 500 mcg DAILY PO 01/14/17 09:00 02/13/17 08:59 8/21/17 08:14 500 MCG Senna/Docusate Sodium (Senokot S Tab) 1 tab HS PO 01/13/17 21:00 02/12/17 20:59 01/13/17 20:32 1 TAB Cholecalciferol (Vitamin D Tab) 6,000 inter.unit DAILYBB PO 01/14/17 06:30 02/13/17 06:59 01/18/17 06:11 6,000 INTER.UNIT Miscellaneous Information (Order Awaiting Action) 1 ea QS N/A 01/13/17 16:00 02/12/17 15:59 Methylprednisolone Sodium Succinate 40 mg/Syringe 0.64 ml @ 1.5 mls/min Q8 IV 01/13/17 22:00 02/12/17 21:59 01/18/17 13:17 1.5 MLS/MIN Piperacillin Sod/ Tazobactam Sod (Consult) 1 ea UD N/A 01/13/17 13:56 02/12/17 13:55 Miscellaneous (Remove Nicoderm Patch) 1 ea HS N/A 01/13/17 21:00 02/12/17 20:59 01/17/17 20:51 1 EA Budesonide (Pulmicort Respules 0.25MG/ 2ML Neb Soln) 0.25 mg BIDR INH 01/13/17 20:00 02/12/17 19:59 01/18/17 07:00 0.25 MG Piperacillin Sod/ Tazobactam Sod 3.375 gm/Dextrose 115 ml @ 28.75 mls/ hr Q8@0000,0800,1600 IV 01/14/17 00:00 01/21/17 00:00 01/18/17 15:58 28.75 MLS/HR Tramadol HCl (Ultram Tab) 50 mg Q6 PRN PO 01/13/17 19:30 02/12/17 19:29 01/18/17 12:23 50 MG Miscellaneous Information (Consult Glycemic Management Pharmacy) 1 ea UD PRN N/A 01/15/17 18:44 02/14/17 18:43 Metoprolol Tartrate (Lopressor Tab) 12.5 mg Q12 PO 01/17/17 09:00 02/12/17 20:59 01/17/17 20:58 12.5 MG Potassium Chloride (Klor-Con M10) 20 meq BID PO 01/17/17 08:00 02/16/17 07:59 01/18/17 08:12 20 MEQ Insulin Glargine (Lantus Solostar Pen) SEE PROTOCOL BID SC 01/18/17 08:30 02/17/17 08:29 01/18/17 08:28 15 UNITS
[2017-01-18] MEDS: MONTELUKAST SOD 10 MG TAB PO SCH (20:04)
[2017-01-18] MEDS: ENOXAPARIN 40 MG/0.4 ML SYR SQ SCH (20:04)
[2017-01-18] MEDS: DOCUSATE SODIUM/SENNA 50/8.6MG TAB PO SCH (20:05)
[2017-01-19] VITALS (9 sets, daily range): BP systolic 110–146; BP diastolic 34–68; PULSE 45–91; TEMP 36.4–36.5; O2SAT 95–98
[2017-01-19 00:37] LABS: HEMATOCRIT 39.4 % (42-52); MEAN CELL VOLUME 87.6 fL (80-100); MEAN CORPUSCULAR HEMOGLOBIN 27.6 pg (25-34); MEAN CORPUSCULAR HGB CONC 31.5 g/dl (32-36); MEAN PLATELET VOLUME 10.1 fL (7.4-10.4); PLATELET COUNT 185 K/uL (130-400); WHITE BLOOD COUNT 15.26 K/uL (4.8-10.8)
[2017-01-19 01:03] LABS: CALCIUM 8.5 mg/dl (8.5-10.1); COMPLETE YES; CREATININE 1.2 mg/dl (0.60-1.40); ECHINOCYTES 1+; LYMPHOCYTE % 2.6 %; NEUTROPHILS % 92.2 %; OVALOCYTES 1+; POTASSIUM 4.5 mmol/L (3.5-5.1)
[2017-01-19] MEDS: METHYLPREDNISOLONE IV 40 MG in SYRINGE 0 ML IV SCH ×3 (05:58→20:33)
[2017-01-19] MEDS: CHOLECALCIFEROL 1000 INTER.UNIT TAB PO SCH (05:58)
[2017-01-19] MEDS: PANTOprazole SOD 40 MG TAB PO SCH (05:58)
[2017-01-19] MEDS: ALBUT/IPRATROP 3MG/0.5MG NEB 3 ML VIAL INH SCH ×4 (07:02→18:52)
[2017-01-19] MEDS: FORMOTEROL FUMA NEBULIZER SOLN 20 MCG/2 ML VIAL INH SCH ×2 (07:02→18:54)
[2017-01-19] MEDS: BUDESONIDE 0.25 MG/2 ML VIAL (PULMICORT) INH SCH ×2 (07:03→18:54)
[2017-01-19] MEDS: METOPROLOL TARTRATE 25 MG TAB PO SCH ×2 (07:35→20:39)
[2017-01-19] MEDS: PIPERACILL/TAZOBAC IV 3.375 GM in DEXTROSE 5% 100ML IV SCH ×3 (07:59→23:53)
[2017-01-19] MEDS: FUROSEMIDE 40 MG TAB PO SCH (08:00)
[2017-01-19] MEDS: PAROXETINE 20 MG TAB PO SCH (08:00)
[2017-01-19] MEDS: FERROUS GLUCONATE 324 MG TAB PO SCH ×2 (08:00→16:07)
[2017-01-19] MEDS: NICOTINE 14 MG/24 HR TDSY TD SCH (08:00)
[2017-01-19] MEDS: FLUTICASONE PROPIONATE NA SPR 16 GM BTL NAE SCH (08:00)
[2017-01-19] MEDS: DOCUSATE SODIUM 100 MG CAP PO SCH ×2 (08:00→20:32)
[2017-01-19] MEDS: GUAIFENESIN 600 MG TABCR PO SCH ×2 (08:00→20:31)
[2017-01-19] MEDS: POTASSIUM CHLORIDE 10 MEQ TABCR PO SCH ×2 (08:00→20:34)
[2017-01-19] MEDS: CLOPIDOGREL BISULFATE 75 MG TAB PO SCH (08:01)
[2017-01-19] MEDS: ROFLUMILAST 500 MCG TAB PO SCH (08:01)
[2017-01-19] MEDS: PREGABALIN 150 MG CAP PO SCH ×2 (08:01→20:39)
[2017-01-19] MEDS: FINASTERIDE 5 MG TAB PO SCH (08:01)
[2017-01-19] MEDS: INSULIN ASPART 100 UNITS/ML 3 ML PEN SC SCH ×4 (08:47→20:44)
[2017-01-19] MEDS: INSULIN GLARGINE SOLOSTAR 100 UNITS/ML 3 ML PEN SC SCH ×2 (08:48→20:45)
--- NOTE | 2017-01-19 09:15 | Pharmacy Progress Note ---
Glycemic Control Progress Note Date of Service Jan 19, 2017. Scope Glycemic Pharmacist consulted for glycemic control to write orders per [facility] inpatient glycemic control protocol. Objective Accuchecks BSG (last 24hrs): Test 01/18/17 11:55 01/18/17 16:50 01/18/17 20:02 01/19/17 00:30 Bedside Glucose 146 mg/dl (70-99) 118 mg/dl (70-99) 236 mg/dl (70-99) Random Glucose 143 mg/dl (70-99) Test 01/19/17 07:26 Bedside Glucose 99 mg/dl (70-99) HbA1c: Test 01/16/17 06:13 Hemoglobin A1c 8.1 % (4.5-5.6) H Recent Pertinent Medications The patient is currently receiving: * Basal insulin: Lantus 15 units every 12 hours * Correctional Insulin: Novolog Correction per scale ACHS Goal Range: Low 110 mg/dL - High 140 mg/dL Correction Factor: 15 mg/dL/unit * Prandial insulin: Per carb ratio of 1 unit per 5 grams CHO consumed Outpatient Anti-Diabetic Meds Oral Agents Assessment & Plan ASSESSMENT: * See progress note from 01/15/17 for more background info, in short: * 76 yo M admitted with aspiration pneumonia requiring basal/bolus insulin due to hyperglycemia secondary to baseline DM (outpatient regimen on hold), stress/ infection, recent bronch and high dose steroids * Patient is currently receiving an average of 67 units of insulin per day * 36 units of basal insulin * 31 units of prandial/correctional insulin * BSGs ranging 101-236 mg/dl over the past 24hrs * Changes needed to insulin regimen: * AM Fasting BSG = 99 mg/dl. This is slightly below goal range for patient based on inpatient targets and co-morbidities; however, patient receive 36 units of basal versus 30 yesterday. Will continue with 30 units total and continue to reassess daily. * Post-prandial BSGs are in range for the most part; patient does tend to have one high BSG at bedtime. Continue current Novolog coverage for now. * Total daily dose = 67 units. * Additional notes / comments: * Patient has been maintained on high dose IV steroids since 01/13 * When steroids tapered, will need to titrate insulin with each step PLAN FOR INPATIENT GLYCEMIC CONTROL: * Oral Agents * Continue to hold outpatient oral diabetes medications. * Basal insulin * Lantus 15 units SQ BID * Bolus insulin * NovoLog per scale ACHS or Q6hrs while NPO * Goal Range: Low 110 mg/dL - High 140 mg/dL * Correction Factor: 15 mg/dL/unit * Nutritional / Prandial insulin per carb ratio of 1 unit per 5 grams CHO consumed RECOMMENDATIONS FOR DISCHARGE: * D/C glimepiride (increased risk of hypoglycemia in elderly) * Consider initiating Lantus 15 units once daily (0.2 units/kg/day) * Please note that the plan above was derived based on current level of insulin resistance and hospital stress. These recommendations are appropriate for inpatient admission only. Plan of care upon discharge will need to be reassessed to avoid potential outpatient hypo/hyperglycemia. Thank you.
[2017-01-19] MEDS: ACETYLCYSTEINE 20% INHAL SOLN ***DISPENSED BY RESP. INH SCH ×2 (11:13→18:54)
[2017-01-19] MEDS: TRAMADOL HCL 50 MG TAB PO PRN (11:24)
[2017-01-19] MEDS: ATORVASTATIN 20 MG TAB PO SCH (16:06)
--- NOTE | 2017-01-19 19:16 | Progress Note ---
Medicine Progress Note Date & Time of Visit: Jan 19, 2017 at 19:13. Subjective pt was seen and examined sitting in bed watching TV Pt said that his breathing slightly improved he said that he started to cough up some of the phlegm mucus is getting more loosen denies any chest pain, fever and palpitation Objective Last 8 Hrs Date Time Temp Pulse Resp B/P (MAP) Pulse Ox O2 Delivery O2 Flow Rate FiO2 01/19/17 18:55 71 16 96 Nasal Cannula 2.0 01/19/17 16:44 36.4 91 18 110/34 (59) 95 Nasal Cannula 3.0 01/19/17 16:38 96 Nasal Cannula 2.0 01/19/17 15:17 74 16 96 Nasal Cannula 2.0 Physical Exam: General- no acute distress Head- atraumatic Eyes- PERRL, EOMI ENT- oropharynx clear Neck- supple, no JVD Lungs- crackles Heart- regular rhythm; no murmur Abdomen- normal bowel sounds, soft Extremities- no calf tenderness Neuro- alert, oriented x 3; PERRL, EOMI; no facial palsy Skin- warm & dry Laboratory Results: Last 24 Hours Test 01/18/17 20:02 01/19/17 00:30 01/19/17 07:26 01/19/17 11:21 Bedside Glucose 236 mg/dl 99 mg/dl 147 mg/dl White Blood Count 15.26 K/uL Red Blood Count 4.50 M/uL Hemoglobin 12.4 g/dL Hematocrit 39.4 % Mean Corpuscular Volume 87.6 fL Mean Corpuscular Hemoglobin 27.6 pg Mean Corpuscular Hemoglobin Concent 31.5 g/dl Platelet Count 185 K/uL Mean Platelet Volume 10.1 fL RDW Standard Deviation 52.4 fL RDW Coefficient of Variation 16.5 % Nucleated RBC Absolute Count (auto) 0.02 K/uL Neutrophils % (Manual) 92.2 % Lymphocytes % (Manual) 2.6 % Monocytes % (Manual) 5.2 % Nucleated Red Blood Cells % 0.2 % Neutrophils # (Manual) 14.07 K/uL Total Absolute Neutrophils 14.07 K/uL Lymphocytes # (Manual) 0.40 K/uL Total Absolute Lymphocytes 0.40 K/uL Monocytes # (Manual) 0.79 K/uL Ovalocytes 1+ Echinocytes 1+ Sodium Level 138 mmol/L Potassium Level 4.5 mmol/L Chloride Level 105 mmol/L Carbon Dioxide Level 28 mmol/L Anion Gap 5.0 mmol/L Blood Urea Nitrogen 28 mg/dl Creatinine 1.20 mg/dl Est Creatinine Clear Calc Drug Dose 57.5 ml/min Estimated GFR () 68.6 Estimated GFR (Non- 59.2 BUN/Creatinine Ratio 23.0 Random Glucose 143 mg/dl Calcium Level 8.5 mg/dl Magnesium Level 2.0 mg/dl Test 01/19/17 16:41 Bedside Glucose 136 mg/dl Assessment & Plan SHORTNESS OF BREATH CHRONIC HYPOXIC RESPIRATORY FAILURE Due to COPD exacerbation secondary to multifocal pneumonia, health care associated, possible aspiration Has underlying severe COPD and idiopathic sleep related nonobstructive alveolar hypoventilation Recently discharge from [facility] for COPD exacerbation, left upper and lower lobe pneumonia, tested + for parainfluenza virus; treated with ceftriaxone, azithromycin, IV Solu-Medrol, nebs, BiPAP PRN; seen by pulmonology ; and was d/c on Levaquin and prednisone taper CTA chest showed multifocal pneumonia left lower lobe and to a lesser degree the lingula. Continue Zosyn Will d/c vanco Continue IV Solu-Medrol 40 mg TID and Duoneb QID On budesonide and formoterol nebs, acetylcysteine, Incruse Ellipta inhaler, Singulair, Daliresp Speech consult recommended to continue mechanical soft diet pulmonology and plan to do Bronchoscopy tomorrow Continue chronic O2 2 liters nasal cannula, BiPAP HS 01/15 S/P Bronch done today showed mucus plug, multifocal pneumonia and hemoptysis D/C IV vanco Continue IV zosyn Video swallow done showed intermittent silent aspiration of solids. Case discussed with speech therapist moderate-severe itzel-pharyngeal dysphagia. Recommended Mechanical soft diet and NECTAR thick liquids. NO straws. NO mixed consistencies 01/19 S/p bronch on 01/15 Continue to feel congested Mucus started to get looser Continue chest PT aspiration precaution continue zosyn, steroid and home resp med and Mucomyst will repeat CT chest in 6 weeks to check for complete resolution HX MILD DIASTOLIC DYSFUNCTION/ HX S/P AVR 03/2014 ON Lasix 40 mg PO daily stable HYPERTENSION BP stable Continue metoprolol DM TYPE 2 A1c 7.3 in 10/2016 Hold glimepiride NovoLog sliding scale CEREBROVASCULAR DISEASE Continue Plavix, statin ANXIETY/ DEPRESSION Continue Paxil and PRN Klonopin ? PULMONARY NODULE CTA chest- Solid 13 mm pulmonary nodule at the right lower lobe may be another site of infection/pneumonia. However, follow-up after treatment to ensure resolution is recommended. DVT PROPHYLAXIS On Lovenox CODE STATUS DNR Consultants: Pulmonary Procedures: Bronchoscopy Current Inpatient Medications: Current Inpatient Medications Medications (Trade) Dose Ordered Sig/Aj Route Start Time Stop Time Status Last Admin Dose Admin Albuterol/ Ipratropium (Duoneb) 3 ml QIDR INH 01/13/17 12:00 02/12/17 11:59 01/19/17 15:16 3 ML Enoxaparin Sodium (Lovenox Inj) 40 mg Q24H SQ 01/13/17 21:00 02/12/17 20:59 01/18/17 20:04 40 MG Acetaminophen (Tylenol Tab) 650 mg Q4H PRN PO 01/13/17 11:45 02/12/17 11:44 01/13/17 16:59 650 MG Ondansetron HCl (Zofran Inj) 4 mg Q6H PRN IV 01/13/17 11:45 02/12/17 11:44 01/19/17 08:53 4 MG Insulin Aspart (novoLOG ASPART) SLIDING SCALE If C... ACHS SC 01/13/17 16:00 02/12/17 15:59 01/19/17 18:03 7 UNITS Glucose (Glucose 40% Gel) 15-30 GRAMS 15 GRAMS... UD PRN PO 01/13/17 12:00 02/12/17 11:59 Glucose (Glucose Chew Tab) 4-8 Tablets 4 Tabl... UD PRN PO 01/13/17 12:00 02/12/17 11:59 Dextrose (Dextrose 50% 50ML Syringe) 25-50ML OF 50% DW IV FOR... UD PRN IV 01/13/17 12:00 02/12/17 11:59 Glucagon (Glucagon Inj) 1 mg UD PRN SQ 01/13/17 12:00 02/12/17 11:59 Acetylcysteine (Mucomyst 20% Inh Soln) 3 ml BIDR INH 01/13/17 20:00 02/12/17 19:59 01/19/17 18:54 3 ML Albuterol (Ventolin Hfa Inhaler) 2 puffs Q4H PRN INH 01/13/17 12:00 02/12/17 11:59 Atorvastatin Calcium (Lipitor Tab) 20 mg DAILYBD PO 01/13/17 16:00 02/12/17 15:59 01/19/17 16:06 20 MG Clonazepam (Klonopin Tab) 0.5 mg Q8H PRN PO 01/13/17 12:00 02/12/17 11:59 01/13/17 20:31 0.5 MG Clopidogrel Bisulfate (plAVix TAB) 75 mg DAILY PO 01/14/17 09:00 02/13/17 08:59 01/19/17 08:01 75 MG Docusate Sodium (coLACE CAP) 100 mg BID PO 01/13/17 21:00 02/12/17 20:59 01/18/17 20:00 100 MG Ferrous Gluconate (Ferrous Gluconate Tab) 324 mg BIDM PO 01/13/17 17:00 02/12/17 17:59 01/19/17 16:07 324 MG Finasteride (Proscar Tab) 5 mg DAILY PO 01/14/17 09:00 02/13/17 08:59 01/19/17 08:01 5 MG Fluticasone Propionate (Flonase Nasal [place]) 2 sprays DAILY LISETTE 01/14/17 09:00 02/13/17 08:59 01/19/17 08:00 2 SPRAYS Formoterol Fumarate (Perforomist 20MCG/2ML Neb Soln) 20 mcg BIDR INH 01/13/17 20:00 02/12/17 19:59 01/19/17 18:54 20 MCG Furosemide (Lasix Tab) 40 mg DAILY PO 01/14/17 09:00 02/13/17 08:59 01/19/17 08:00 40 MG Guaifenesin (Mucinex Contr Rel Tab) 600 mg Q12 PO 01/13/17 21:00 02/12/17 20:59 01/19/17 08:00 600 MG Montelukast Sodium (Singulair Tab) 10 mg QPM PO 01/13/17 21:00 02/12/17 20:59 01/18/17 20:04 10 MG Nicotine (Nicoderm Cq 14MG Patch) 1 patch DAILY TD 01/14/17 09:00 02/13/17 08:59 01/19/17 08:00 1 PATCH Pantoprazole Sodium (Protonix Tab) 40 mg DAILYBB PO 01/14/17 06:30 02/13/17 06:59 01/19/17 05:58 40 MG Paroxetine HCl (pAXil TAB) 20 mg DAILY PO 01/14/17 09:00 02/13/17 08:59 01/19/17 08:00 20 MG Pregabalin (Lyrica Cap) 150 mg BID PO 01/13/17 21:00 02/12/17 20:59 01/19/17 08:01 150 MG Roflumilast (Daliresp Tab) 500 mcg DAILY PO 01/14/17 09:00 02/13/17 08:59 01/19/17 08:01 500 MCG Senna/Docusate Sodium (Senokot S Tab) 1 tab HS PO 01/13/17 21:00 02/12/17 20:59 01/18/17 20:05 1 TAB Cholecalciferol (Vitamin D Tab) 6,000 inter.unit DAILYBB PO 01/14/17 06:30 02/13/17 06:59 01/19/17 05:58 6,000 INTER.UNIT Miscellaneous Information (Order Awaiting Action) 1 ea QS N/A 01/13/17 16:00 02/12/17 15:59 Methylprednisolone Sodium Succinate 40 mg/Syringe 0.64 ml @ 1.5 mls/min Q8 IV 01/13/17 22:00 02/12/17 21:59 01/19/17 13:34 1.5 MLS/MIN Piperacillin Sod/ Tazobactam Sod (Consult) 1 ea UD N/A 01/13/17 13:56 02/12/17 13:55 Miscellaneous (Remove Nicoderm Patch) 1 ea HS N/A 01/13/17 21:00 02/12/17 20:59 01/18/17 21:43 1 EA Budesonide (Pulmicort Respules 0.25MG/ 2ML Neb Soln) 0.25 mg BIDR INH 01/13/17 20:00 02/12/17 19:59 01/19/17 18:54 0.25 MG Piperacillin Sod/ Tazobactam Sod 3.375 gm/Dextrose 115 ml @ 28.75 mls/ hr Q8@0000,0800,1600 IV 01/14/17 00:00 01/21/17 00:00 01/19/17 16:06 28.75 MLS/HR Tramadol HCl (Ultram Tab) 50 mg Q6 PRN PO 01/13/17 19:30 02/12/17 19:29 01/19/17 11:24 50 MG Miscellaneous Information (Consult Glycemic Management Pharmacy) 1 ea UD PRN N/A 01/15/17 18:44 02/14/17 18:43 Metoprolol Tartrate (Lopressor Tab) 12.5 mg Q12 PO 01/17/17 09:00 02/12/17 20:59 01/18/17 20:02 12.5 MG Potassium Chloride (Klor-Con M10) 20 meq BID PO 01/17/17 08:00 02/16/17 07:59 01/19/17 08:00 20 MEQ Insulin Glargine (Lantus Solostar Pen) 15 units BID SC 01/19/17 08:30 02/18/17 08:29 01/19/17 08:48 15 UNITS
[2017-01-19] MEDS: ENOXAPARIN 40 MG/0.4 ML SYR SQ SCH (20:31)
[2017-01-19] MEDS: DOCUSATE SODIUM/SENNA 50/8.6MG TAB PO SCH (20:32)
[2017-01-19] MEDS: MONTELUKAST SOD 10 MG TAB PO SCH (20:33)
[2017-01-20] VITALS (11 sets, daily range): BP systolic 119–136; BP diastolic 63–72; PULSE 45–73; TEMP 36.4–36.7; O2SAT 94–98
[2017-01-20] MEDS: CHOLECALCIFEROL 1000 INTER.UNIT TAB PO SCH (05:57)
[2017-01-20] MEDS: METHYLPREDNISOLONE IV 40 MG in SYRINGE 0 ML IV SCH ×3 (05:58→20:34)
[2017-01-20] MEDS: PANTOprazole SOD 40 MG TAB PO SCH (05:58)
[2017-01-20] MEDS: ALBUT/IPRATROP 3MG/0.5MG NEB 3 ML VIAL INH SCH ×4 (07:09→19:46)
[2017-01-20] MEDS: FORMOTEROL FUMA NEBULIZER SOLN 20 MCG/2 ML VIAL INH SCH ×2 (07:09→19:09)
[2017-01-20] MEDS: BUDESONIDE 0.25 MG/2 ML VIAL (PULMICORT) INH SCH ×2 (07:09→19:09)
[2017-01-20] MEDS: FLUTICASONE PROPIONATE NA SPR 16 GM BTL NAE SCH (07:46)
[2017-01-20] MEDS: POTASSIUM CHLORIDE 10 MEQ TABCR PO SCH ×2 (07:46→20:33)
[2017-01-20] MEDS: CLOPIDOGREL BISULFATE 75 MG TAB PO SCH (07:46)
[2017-01-20] MEDS: GUAIFENESIN 600 MG TABCR PO SCH ×2 (07:46→20:33)
[2017-01-20] MEDS: PIPERACILL/TAZOBAC IV 3.375 GM in DEXTROSE 5% 100ML IV SCH ×3 (07:46→23:37)
[2017-01-20] MEDS: PAROXETINE 20 MG TAB PO SCH (07:46)
[2017-01-20] MEDS: FERROUS GLUCONATE 324 MG TAB PO SCH ×2 (07:46→16:15)
[2017-01-20] MEDS: METOPROLOL TARTRATE 25 MG TAB PO SCH ×2 (07:46→20:33)
[2017-01-20] MEDS: PREGABALIN 150 MG CAP PO SCH ×2 (07:46→20:33)
[2017-01-20] MEDS: ROFLUMILAST 500 MCG TAB PO SCH (07:46)
[2017-01-20] MEDS: FUROSEMIDE 40 MG TAB PO SCH (07:47)
[2017-01-20] MEDS: FINASTERIDE 5 MG TAB PO SCH (07:47)
[2017-01-20] MEDS: NICOTINE 14 MG/24 HR TDSY TD SCH (07:47)
[2017-01-20] MEDS: DOCUSATE SODIUM 100 MG CAP PO SCH ×2 (07:47→20:32)
[2017-01-20 08:14] LABS: CREATININE 1.2 mg/dl (0.60-1.40)
[2017-01-20] MEDS: INSULIN ASPART 100 UNITS/ML 3 ML PEN SC SCH ×4 (08:37→20:47)
[2017-01-20] MEDS: INSULIN GLARGINE SOLOSTAR 100 UNITS/ML 3 ML PEN SC SCH ×2 (08:38→20:48)
[2017-01-20] MEDS: ACETYLCYSTEINE 20% INHAL SOLN ***DISPENSED BY RESP. INH SCH ×2 (11:40→15:15)
[2017-01-20] MEDS: TRAMADOL HCL 50 MG TAB PO PRN (16:15)
[2017-01-20] MEDS: ATORVASTATIN 20 MG TAB PO SCH (16:15)
--- NOTE | 2017-01-20 19:01 | Progress Note ---
Medicine Progress Note Date & Time of Visit: Jan 20, 2017 at 19:01. Subjective seen resting in bed, comfortable states he feels improved compared to yesterday still has productive cough, dyspnea seems to be less reports diarrhea- 2-3 loose stools, non bloody no other symptoms Objective Last 8 Hrs Date Time Temp Pulse Resp B/P (MAP) Pulse Ox O2 Delivery O2 Flow Rate FiO2 01/20/17 17:22 96 Nasal Cannula 1.0 01/20/17 15:45 36.7 52 20 130/70 (90) 98 Nasal Cannula 1.0 01/20/17 15:35 73 18 95 Nasal Cannula 1.0 01/20/17 13:24 94 01/20/17 11:45 48 18 97 Nasal Cannula 1.0 Physical Exam: General- oriented x 3, not in distress, speaks in sentences with no effort Head- atraumatic Eyes EOMI, anicteric Neck- supple, no JVD, no adenopathy Lungs-(+) scattered rhonchi bilaterally, no wheezing Heart- regular rhythm; no murmur, normal rate Abdomen- normal bowel sounds, soft, nontender Extremities- no pretibial edema, no calf tenderness; peripheral pulses intact Neuro- alert, oriented x 3;no gross focal deficits Skin- warm & dry Laboratory Results: Last 24 Hours Test 01/19/17 19:50 01/20/17 06:39 01/20/17 07:41 01/20/17 11:13 Bedside Glucose 223 mg/dl 114 mg/dl 143 mg/dl Creatinine 1.20 mg/dl Est Creatinine Clear Calc Drug Dose 57.5 ml/min Estimated GFR () 68.6 Estimated GFR (Non- 59.2 Test 01/20/17 16:23 Bedside Glucose 136 mg/dl Assessment & Plan SHORTNESS OF BREATH CHRONIC HYPOXIC RESPIRATORY FAILURE Due to COPD exacerbation secondary to multifocal pneumonia, health care associated, possible aspiration Has underlying severe COPD and idiopathic sleep related nonobstructive alveolar hypoventilation S/p bronch on 01/15 -- gradually improving on 2 liters NC continue nebs, solumedrol, zosyn -- will discuss with Pulmonary DIARRHEA -- check for C diff HX MILD DIASTOLIC DYSFUNCTION/ HX S/P AVR 03/2014 ON Lasix 40 mg PO daily -- appears euvolemic HYPERTENSION BP stable Continue metoprolol DM TYPE 2 A1c 7.3 in 10/2016 Hold glimepiride NovoLog sliding scale CEREBROVASCULAR DISEASE Continue Plavix, statin ANXIETY/ DEPRESSION Continue Paxil and PRN Klonopin ? PULMONARY NODULE CTA chest- Solid 13 mm pulmonary nodule at the right lower lobe may be another site of infection/pneumonia. However, follow-up after treatment to ensure resolution is recommended. DVT PROPHYLAXIS On Lovenox CODE STATUS DNR DISPOSITION pending Consultants: Pulmonary Procedures: Bronchoscopy Consultants: Pulmonary Procedures: Bronchoscopy Current Inpatient Medications: Current Inpatient Medications Medications (Trade) Dose Ordered Sig/Aj Route Start Time Stop Time Status Last Admin Dose Admin Albuterol/ Ipratropium (Duoneb) 3 ml QIDR INH 01/13/17 12:00 02/12/17 11:59 01/20/17 15:15 3 ML Enoxaparin Sodium (Lovenox Inj) 40 mg Q24H SQ 01/13/17 21:00 02/12/17 20:59 01/19/17 20:31 40 MG Acetaminophen (Tylenol Tab) 650 mg Q4H PRN PO 01/13/17 11:45 02/12/17 11:44 01/13/17 16:59 650 MG Ondansetron HCl (Zofran Inj) 4 mg Q6H PRN IV 01/13/17 11:45 02/12/17 11:44 01/19/17 08:53 4 MG Insulin Aspart (novoLOG ASPART) SLIDING SCALE If C... ACHS SC 01/13/17 16:00 02/12/17 15:59 01/20/17 18:23 9 UNITS Glucose (Glucose 40% Gel) 15-30 GRAMS 15 GRAMS... UD PRN PO 01/13/17 12:00 02/12/17 11:59 Glucose (Glucose Chew Tab) 4-8 Tablets 4 Tabl... UD PRN PO 01/13/17 12:00 02/12/17 11:59 Dextrose (Dextrose 50% 50ML Syringe) 25-50ML OF 50% DW IV FOR... UD PRN IV 01/13/17 12:00 02/12/17 11:59 Glucagon (Glucagon Inj) 1 mg UD PRN SQ 01/13/17 12:00 02/12/17 11:59 Acetylcysteine (Mucomyst 20% Inh Soln) 3 ml BIDR INH 01/13/17 20:00 02/12/17 19:59 01/20/17 15:15 3 ML Albuterol (Ventolin Hfa Inhaler) 2 puffs Q4H PRN INH 01/13/17 12:00 02/12/17 11:59 Atorvastatin Calcium (Lipitor Tab) 20 mg DAILYBD PO 01/13/17 16:00 02/12/17 15:59 01/20/17 16:15 20 MG Clonazepam (Klonopin Tab) 0.5 mg Q8H PRN PO 01/13/17 12:00 02/12/17 11:59 01/13/17 20:31 0.5 MG Clopidogrel Bisulfate (plAVix TAB) 75 mg DAILY PO 01/14/17 09:00 02/13/17 08:59 01/20/17 07:46 75 MG Docusate Sodium (coLACE CAP) 100 mg BID PO 01/13/17 21:00 02/12/17 20:59 01/20/17 07:47 100 MG Ferrous Gluconate (Ferrous Gluconate Tab) 324 mg BIDM PO 01/13/17 17:00 02/12/17 17:59 01/20/17 16:15 324 MG Finasteride (Proscar Tab) 5 mg DAILY PO 01/14/17 09:00 02/13/17 08:59 01/20/17 07:47 5 MG Fluticasone Propionate (Flonase Nasal [place]) 2 sprays DAILY LISETTE 01/14/17 09:00 02/13/17 08:59 01/20/17 07:46 2 SPRAYS Formoterol Fumarate (Perforomist 20MCG/2ML Neb Soln) 20 mcg BIDR INH 01/13/17 20:00 02/12/17 19:59 01/20/17 07:09 20 MCG Furosemide (Lasix Tab) 40 mg DAILY PO 01/14/17 09:00 02/13/17 08:59 01/20/17 07:47 40 MG Guaifenesin (Mucinex Contr Rel Tab) 600 mg Q12 PO 01/13/17 21:00 02/12/17 20:59 01/20/17 07:46 600 MG Montelukast Sodium (Singulair Tab) 10 mg QPM PO 01/13/17 21:00 02/12/17 20:59 01/19/17 20:33 10 MG Nicotine (Nicoderm Cq 14MG Patch) 1 patch DAILY TD 01/14/17 09:00 02/13/17 08:59 01/20/17 07:47 1 PATCH Pantoprazole Sodium (Protonix Tab) 40 mg DAILYBB PO 01/14/17 06:30 02/13/17 06:59 01/20/17 05:58 40 MG Paroxetine HCl (pAXil TAB) 20 mg DAILY PO 01/14/17 09:00 02/13/17 08:59 01/20/17 07:46 20 MG Pregabalin (Lyrica Cap) 150 mg BID PO 01/13/17 21:00 02/12/17 20:59 01/20/17 07:46 150 MG Roflumilast (Daliresp Tab) 500 mcg DAILY PO 01/14/17 09:00 02/13/17 08:59 01/20/17 07:46 500 MCG Senna/Docusate Sodium (Senokot S Tab) 1 tab HS PO 01/13/17 21:00 02/12/17 20:59 01/19/17 20:32 1 TAB Cholecalciferol (Vitamin D Tab) 6,000 inter.unit DAILYBB PO 01/14/17 06:30 02/13/17 06:59 01/20/17 05:57 6,000 INTER.UNIT Miscellaneous Information (Order Awaiting Action) 1 ea QS N/A 01/13/17 16:00 02/12/17 15:59 Methylprednisolone Sodium Succinate 40 mg/Syringe 0.64 ml @ 1.5 mls/min Q8 IV 01/13/17 22:00 02/12/17 21:59 01/20/17 13:47 1.5 MLS/MIN Piperacillin Sod/ Tazobactam Sod (Consult) 1 ea UD N/A 01/13/17 13:56 02/12/17 13:55 Miscellaneous (Remove Nicoderm Patch) 1 ea HS N/A 01/13/17 21:00 02/12/17 20:59 01/19/17 20:33 1 EA Budesonide (Pulmicort Respules 0.25MG/ 2ML Neb Soln) 0.25 mg BIDR INH 01/13/17 20:00 02/12/17 19:59 01/20/17 07:09 0.25 MG Piperacillin Sod/ Tazobactam Sod 3.375 gm/Dextrose 115 ml @ 28.75 mls/ hr Q8@0000,0800,1600 IV 01/14/17 00:00 01/21/17 00:00 01/20/17 16:03 28.75 MLS/HR Tramadol HCl (Ultram Tab) 50 mg Q6 PRN PO 01/13/17 19:30 02/12/17 19:29 01/20/17 16:15 50 MG Miscellaneous Information (Consult Glycemic Management Pharmacy) 1 ea UD PRN N/A 01/15/17 18:44 02/14/17 18:43 Metoprolol Tartrate (Lopressor Tab) 12.5 mg Q12 PO 01/17/17 09:00 02/12/17 20:59 01/19/17 20:39 12.5 MG Potassium Chloride (Klor-Con M10) 20 meq BID PO 01/17/17 08:00 02/16/17 07:59 01/20/17 07:46 20 MEQ Insulin Glargine (Lantus Solostar Pen) 15 units BID SC 01/19/17 08:30 02/18/17 08:29 01/20/17 08:38 15 UNITS
[2017-01-20] MEDS: ENOXAPARIN 40 MG/0.4 ML SYR SQ SCH (20:31)
[2017-01-20] MEDS: DOCUSATE SODIUM/SENNA 50/8.6MG TAB PO SCH (20:34)
[2017-01-20] MEDS: MONTELUKAST SOD 10 MG TAB PO SCH (20:34)
[2017-01-21] VITALS (8 sets, daily range): BP systolic 122–130; BP diastolic 64–83; PULSE 48–104; TEMP 36.5–36.6; O2SAT 92–98
[2017-01-21] MEDS: PANTOprazole SOD 40 MG TAB PO SCH (06:18)
[2017-01-21] MEDS: CHOLECALCIFEROL 1000 INTER.UNIT TAB PO SCH (06:19)
[2017-01-21] MEDS: METHYLPREDNISOLONE IV 40 MG in SYRINGE 0 ML IV SCH ×3 (06:19→20:36)
[2017-01-21] MEDS: DOCUSATE SODIUM 100 MG CAP PO SCH (08:00)
[2017-01-21] MEDS: ALBUT/IPRATROP 3MG/0.5MG NEB 3 ML VIAL INH SCH ×4 (08:00→19:02)
[2017-01-21] MEDS: FORMOTEROL FUMA NEBULIZER SOLN 20 MCG/2 ML VIAL INH SCH ×2 (08:23→19:04)
[2017-01-21] MEDS: BUDESONIDE 0.25 MG/2 ML VIAL (PULMICORT) INH SCH ×2 (08:24→19:03)
[2017-01-21] MEDS: FLUTICASONE PROPIONATE NA SPR 16 GM BTL NAE SCH (08:55)
[2017-01-21] MEDS: POTASSIUM CHLORIDE 10 MEQ TABCR PO SCH ×2 (08:59→20:27)
[2017-01-21] MEDS: NICOTINE 14 MG/24 HR TDSY TD SCH (08:59)
[2017-01-21] MEDS: PAROXETINE 20 MG TAB PO SCH (09:00)
[2017-01-21] MEDS: CLOPIDOGREL BISULFATE 75 MG TAB PO SCH (09:00)
[2017-01-21] MEDS: METOPROLOL TARTRATE 25 MG TAB PO SCH ×2 (09:00→20:30)
[2017-01-21] MEDS: ROFLUMILAST 500 MCG TAB PO SCH (09:00)
[2017-01-21] MEDS: FERROUS GLUCONATE 324 MG TAB PO SCH ×2 (09:00→16:18)
[2017-01-21] MEDS: FINASTERIDE 5 MG TAB PO SCH (09:01)
[2017-01-21] MEDS: PREGABALIN 150 MG CAP PO SCH ×2 (09:01→20:25)
[2017-01-21] MEDS: GUAIFENESIN 600 MG TABCR PO SCH ×2 (09:01→20:28)
[2017-01-21] MEDS: FUROSEMIDE 40 MG TAB PO SCH (09:02)
[2017-01-21] MEDS: INSULIN ASPART 100 UNITS/ML 3 ML PEN SC SCH ×4 (09:06→20:25)
[2017-01-21] MEDS: INSULIN GLARGINE SOLOSTAR 100 UNITS/ML 3 ML PEN SC SCH ×2 (09:07→20:43)
[2017-01-21] MEDS: ACETYLCYSTEINE 20% INHAL SOLN ***DISPENSED BY RESP. INH SCH ×2 (11:38→15:48)
[2017-01-21] MEDS: ATORVASTATIN 20 MG TAB PO SCH (16:15)
[2017-01-21] MEDS: PIPERACILL/TAZOBAC IV 3.375 GM in DEXTROSE 5% 100ML IV SCH ×2 (16:15→23:27)
--- NOTE | 2017-01-21 19:58 | Progress Note ---
Medicine Progress Note Date & Time of Visit: Jan 21, 2017 at 19:54. Subjective patient seen resting in bed, comfortable states he felt short of breath today, then was found that he was on 1 liter instead of 2 liters NC feeling better since that was corrected still has productive cough no chest pain, dizziness no other symptoms Objective Last 8 Hrs Date Time Temp Pulse Resp B/P (MAP) Pulse Ox O2 Delivery O2 Flow Rate FiO2 01/21/17 19:05 89 18 96 Nasal Cannula 2.0 01/21/17 16:19 36.5 104 20 130/83 (99) 92 Nasal Cannula 1.0 01/21/17 16:00 94 Nasal Cannula 1.0 01/21/17 15:50 87 18 97 Nasal Cannula 1.0 Physical Exam: General- oriented x 3, not in distress, speaks in sentences with no effort Eyes anicteric Neck- no JVD Lungs-(+) mild rhonchi at the bases, no wheezing Heart- regular rhythm; no murmur, normal rate Abdomen- normal bowel sounds, soft, nontender Extremities- no pretibial edema, no calf tenderness; peripheral pulses intact Neuro- alert, oriented x 3;no gross focal deficits Skin- warm & dry Laboratory Results: Last 24 Hours Test 01/20/17 20:41 01/21/17 08:00 01/21/17 11:35 01/21/17 16:06 Bedside Glucose 274 mg/dl 96 mg/dl 130 mg/dl 133 mg/dl Assessment & Plan SHORTNESS OF BREATH CHRONIC HYPOXIC RESPIRATORY FAILURE Due to COPD exacerbation secondary to multifocal pneumonia, health care associated, possible aspiration Has underlying severe COPD and idiopathic sleep related nonobstructive alveolar hypoventilation S/p bronch on 01/15 -- gradually improving on 2 liters NC -- repeat CXR today continue nebs, taper solumedrol, continue zosyn -- discussed with Pulmonary DIARRHEA -- resolved HX MILD DIASTOLIC DYSFUNCTION/ HX S/P AVR 03/2014 on Lasix 40 mg PO daily -- appears euvolemic -- repeat CXR HYPERTENSION BP stable Continue metoprolol DM TYPE 2 A1c 7.3 in 10/2016 Hold glimepiride NovoLog sliding scale CEREBROVASCULAR DISEASE Continue Plavix, statin ANXIETY/ DEPRESSION Continue Paxil and PRN Klonopin ? PULMONARY NODULE CTA chest- Solid 13 mm pulmonary nodule at the right lower lobe may be another site of infection/pneumonia. However, follow-up after treatment to ensure resolution is recommended. DVT PROPHYLAXIS On Lovenox CODE STATUS DNR DISPOSITION pending d/c to SNF when medically stable Consultants: Pulmonary Procedures: Bronchoscopy Consultants: Pulmonary Procedures: Bronchoscopy Current Inpatient Medications: Current Inpatient Medications Medications (Trade) Dose Ordered Sig/Aj Route Start Time Stop Time Status Last Admin Dose Admin Albuterol/ Ipratropium (Duoneb) 3 ml QIDR INH 01/13/17 12:00 02/12/17 11:59 01/21/17 15:47 3 ML Enoxaparin Sodium (Lovenox Inj) 40 mg Q24H SQ 01/13/17 21:00 02/12/17 20:59 01/20/17 20:31 40 MG Acetaminophen (Tylenol Tab) 650 mg Q4H PRN PO 01/13/17 11:45 02/12/17 11:44 01/13/17 16:59 650 MG Ondansetron HCl (Zofran Inj) 4 mg Q6H PRN IV 01/13/17 11:45 02/12/17 11:44 01/19/17 08:53 4 MG Insulin Aspart (novoLOG ASPART) SLIDING SCALE If C... ACHS SC 01/13/17 16:00 02/12/17 15:59 01/21/17 18:50 9 UNITS Glucose (Glucose 40% Gel) 15-30 GRAMS 15 GRAMS... UD PRN PO 01/13/17 12:00 02/12/17 11:59 Glucose (Glucose Chew Tab) 4-8 Tablets 4 Tabl... UD PRN PO 01/13/17 12:00 02/12/17 11:59 Dextrose (Dextrose 50% 50ML Syringe) 25-50ML OF 50% DW IV FOR... UD PRN IV 01/13/17 12:00 02/12/17 11:59 Glucagon (Glucagon Inj) 1 mg UD PRN SQ 01/13/17 12:00 02/12/17 11:59 Acetylcysteine (Mucomyst 20% Inh Soln) 3 ml BIDR INH 01/13/17 20:00 02/12/17 19:59 01/21/17 15:48 3 ML Albuterol (Ventolin Hfa Inhaler) 2 puffs Q4H PRN INH 01/13/17 12:00 02/12/17 11:59 Atorvastatin Calcium (Lipitor Tab) 20 mg DAILYBD PO 01/13/17 16:00 02/12/17 15:59 01/21/17 16:15 20 MG Clonazepam (Klonopin Tab) 0.5 mg Q8H PRN PO 01/13/17 12:00 02/12/17 11:59 01/13/17 20:31 0.5 MG Clopidogrel Bisulfate (plAVix TAB) 75 mg DAILY PO 01/14/17 09:00 02/13/17 08:59 01/21/17 09:00 75 MG Docusate Sodium (coLACE CAP) 100 mg BID PO 01/13/17 21:00 02/12/17 20:59 01/20/17 20:32 100 MG Ferrous Gluconate (Ferrous Gluconate Tab) 324 mg BIDM PO 01/13/17 17:00 02/12/17 17:59 01/21/17 16:18 324 MG Finasteride (Proscar Tab) 5 mg DAILY PO 01/14/17 09:00 02/13/17 08:59 01/21/17 09:01 5 MG Fluticasone Propionate (Flonase Nasal [place]) 2 sprays DAILY LISETTE 01/14/17 09:00 02/13/17 08:59 01/21/17 08:55 2 SPRAYS Formoterol Fumarate (Perforomist 20MCG/2ML Neb Soln) 20 mcg BIDR INH 01/13/17 20:00 02/12/17 19:59 01/21/17 19:04 20 MCG Furosemide (Lasix Tab) 40 mg DAILY PO 01/14/17 09:00 02/13/17 08:59 01/21/17 09:02 40 MG Guaifenesin (Mucinex Contr Rel Tab) 600 mg Q12 PO 01/13/17 21:00 02/12/17 20:59 01/21/17 09:01 600 MG Montelukast Sodium (Singulair Tab) 10 mg QPM PO 01/13/17 21:00 02/12/17 20:59 01/20/17 20:34 10 MG Nicotine (Nicoderm Cq 14MG Patch) 1 patch DAILY TD 01/14/17 09:00 02/13/17 08:59 01/21/17 08:59 1 PATCH Pantoprazole Sodium (Protonix Tab) 40 mg DAILYBB PO 01/14/17 06:30 02/13/17 06:59 01/21/17 06:18 40 MG Paroxetine HCl (pAXil TAB) 20 mg DAILY PO 01/14/17 09:00 02/13/17 08:59 01/21/17 09:00 20 MG Pregabalin (Lyrica Cap) 150 mg BID PO 01/13/17 21:00 02/12/17 20:59 01/21/17 09:01 150 MG Roflumilast (Daliresp Tab) 500 mcg DAILY PO 01/14/17 09:00 02/13/17 08:59 01/21/17 09:00 500 MCG Senna/Docusate Sodium (Senokot S Tab) 1 tab HS PO 01/13/17 21:00 02/12/17 20:59 01/20/17 20:34 1 TAB Cholecalciferol (Vitamin D Tab) 6,000 inter.unit DAILYBB PO 01/14/17 06:30 02/13/17 06:59 01/21/17 06:19 6,000 INTER.UNIT Miscellaneous Information (Order Awaiting Action) 1 ea QS N/A 01/13/17 16:00 02/12/17 15:59 Methylprednisolone Sodium Succinate 40 mg/Syringe 0.64 ml @ 1.5 mls/min Q8 IV 01/13/17 22:00 02/12/17 21:59 01/21/17 12:40 1.5 MLS/MIN Piperacillin Sod/ Tazobactam Sod (Consult) 1 ea UD N/A 01/13/17 13:56 02/12/17 13:55 Miscellaneous (Remove Nicoderm Patch) 1 ea HS N/A 01/13/17 21:00 02/12/17 20:59 01/20/17 20:34 1 EA Budesonide (Pulmicort Respules 0.25MG/ 2ML Neb Soln) 0.25 mg BIDR INH 01/13/17 20:00 02/12/17 19:59 01/21/17 19:03 0.25 MG Tramadol HCl (Ultram Tab) 50 mg Q6 PRN PO 01/13/17 19:30 02/12/17 19:29 01/20/17 16:15 50 MG Miscellaneous Information (Consult Glycemic Management Pharmacy) 1 ea UD PRN N/A 01/15/17 18:44 02/14/17 18:43 Metoprolol Tartrate (Lopressor Tab) 12.5 mg Q12 PO 01/17/17 09:00 02/12/17 20:59 01/21/17 09:00 12.5 MG Potassium Chloride (Klor-Con M10) 20 meq BID PO 01/17/17 08:00 02/16/17 07:59 01/21/17 08:59 20 MEQ Insulin Glargine (Lantus Solostar Pen) 15 units BID SC 01/19/17 08:30 02/18/17 08:29 01/21/17 09:07 15 UNITS Piperacillin Sod/ Tazobactam Sod 3.375 gm/Dextrose 115 ml @ 28.75 mls/ hr Q8@0000,0800,1600 IV 01/21/17 16:00 01/23/17 15:59 01/21/17 16:15 28.75 MLS/HR
--- NOTE | 2017-01-21 20:22 | DIAGNOSTIC IMAGING REPORT ---
CHEST ONE VIEW PORTABLE CLINICAL HISTORY: 76 years-old Male presenting with pneumonia. TECHNIQUE: Portable upright AP view of the chest was obtained. COMPARISON: 01/15/2017. FINDINGS: Median sternotomy wires again noted with breakage of the most superior wire. Atherosclerosis of the aortic arch. Cardiac silhouette normal in size. The presence of emphysema is better appreciated on CT from 01/13/2017. Lungs and pleural spaces clear. Degenerative changes of the spine. Upper abdomen normal. IMPRESSION: 1. No acute cardiopulmonary disease. 2. The presence of emphysema is better appreciated on CT from 01/13/2017. Electronically signed by: Avel Raman M.D. 01/21/2017 8:21 PM Dictated Date/Time: 01/21/2017 8:19 PM
[2017-01-21] MEDS: TRAMADOL HCL 50 MG TAB PO PRN (20:25)
[2017-01-21] MEDS: CLONAZEPAM 0.5 MG TAB PO PRN (20:25)
[2017-01-21] MEDS: ENOXAPARIN 40 MG/0.4 ML SYR SQ SCH (20:27)
[2017-01-21] MEDS: MONTELUKAST SOD 10 MG TAB PO SCH (20:27)
[2017-01-21] MEDS: DOCUSATE SODIUM/SENNA 50/8.6MG TAB PO SCH (20:27)
[2017-01-22] VITALS (10 sets, daily range): BP systolic 115–134; BP diastolic 67–74; PULSE 51–88; TEMP 36.5–36.7; O2SAT 93–97
[2017-01-22 06:27] LABS: MEAN CELL VOLUME 89.1 fL (80-100); MEAN CORPUSCULAR HEMOGLOBIN 28.1 pg (25-34); MEAN CORPUSCULAR HGB CONC 31.5 g/dl (32-36); MEAN PLATELET VOLUME 10.9 fL (7.4-10.4); PLATELET COUNT 158 K/uL (130-400); RED BLOOD COUNT 4.49 M/uL (4.7-6.1); WHITE BLOOD COUNT 9.51 K/uL (4.8-10.8)
[2017-01-22 06:56] LABS: BUN/CREATININE RATIO 24.1 (10-20); CALCIUM 8.6 mg/dl (8.5-10.1); POTASSIUM 4.6 mmol/L (3.5-5.1)
[2017-01-22] MEDS: ALBUT/IPRATROP 3MG/0.5MG NEB 3 ML VIAL INH SCH ×4 (07:20→20:00)
[2017-01-22] MEDS: FORMOTEROL FUMA NEBULIZER SOLN 20 MCG/2 ML VIAL INH SCH ×2 (07:21→20:07)
[2017-01-22] MEDS: BUDESONIDE 0.25 MG/2 ML VIAL (PULMICORT) INH SCH ×2 (07:21→20:07)
[2017-01-22] MEDS: INSULIN ASPART 100 UNITS/ML 3 ML PEN SC SCH ×4 (08:49→21:47)
[2017-01-22] MEDS: INSULIN GLARGINE SOLOSTAR 100 UNITS/ML 3 ML PEN SC SCH ×2 (08:50→19:54)
[2017-01-22] MEDS: FLUTICASONE PROPIONATE NA SPR 16 GM BTL NAE SCH (08:51)
[2017-01-22] MEDS: PIPERACILL/TAZOBAC IV 3.375 GM in DEXTROSE 5% 100ML IV SCH ×2 (08:51→15:28)
[2017-01-22] MEDS: NICOTINE 14 MG/24 HR TDSY TD SCH (08:52)
[2017-01-22] MEDS: GUAIFENESIN 600 MG TABCR PO SCH ×2 (08:53→21:37)
[2017-01-22] MEDS: CHOLECALCIFEROL 1000 INTER.UNIT TAB PO SCH (08:53)
[2017-01-22] MEDS: FERROUS GLUCONATE 324 MG TAB PO SCH ×2 (08:53→16:43)
[2017-01-22] MEDS: ROFLUMILAST 500 MCG TAB PO SCH (08:53)
[2017-01-22] MEDS: PAROXETINE 20 MG TAB PO SCH (08:54)
[2017-01-22] MEDS: POTASSIUM CHLORIDE 10 MEQ TABCR PO SCH ×2 (08:54→19:57)
[2017-01-22] MEDS: PANTOprazole SOD 40 MG TAB PO SCH (08:54)
[2017-01-22] MEDS: CLOPIDOGREL BISULFATE 75 MG TAB PO SCH (08:54)
[2017-01-22] MEDS: FINASTERIDE 5 MG TAB PO SCH (08:54)
[2017-01-22] MEDS: FUROSEMIDE 40 MG TAB PO SCH (08:55)
[2017-01-22] MEDS: METOPROLOL TARTRATE 25 MG TAB PO SCH ×2 (08:56→21:40)
[2017-01-22] MEDS: METHYLPREDNISOLONE IV 40 MG in SYRINGE 0 ML IV SCH ×2 (09:00→21:36)
[2017-01-22] MEDS: PREGABALIN 150 MG CAP PO SCH ×2 (09:00→19:39)
--- NOTE | 2017-01-22 09:27 | Progress Note ---
Medicine Progress Note Date & Time of Visit: Jan 22, 2017 at 09:22. Subjective seen sitting in bedside chair, states he feels improved today no dyspnea still has occasional cough no chest pain no diarrhea denies other symptoms Objective Last 8 Hrs Date Time Temp Pulse Resp B/P (MAP) Pulse Ox O2 Delivery O2 Flow Rate FiO2 01/22/17 07:42 36.5 51 20 134/74 (94) 97 Nasal Cannula 2.0 01/22/17 07:25 88 18 95 Nasal Cannula 2.0 Physical Exam: General- oriented x 3, not in distress, speaks in sentences with no effort Eyes anicteric Neck- no JVD Lungs-(+) mild scattered rhonchi at the bases, no wheezing Heart- regular rhythm; no murmur, normal rate Abdomen- normal bowel sounds, soft, nontender Extremities- no pretibial edema, no calf tenderness; peripheral pulses intact Neuro- alert, oriented x 3;no gross focal deficits Skin- warm & dry Laboratory Results: Last 24 Hours Test 01/21/17 11:35 01/21/17 16:06 01/21/17 19:41 01/22/17 05:20 Bedside Glucose 130 mg/dl 133 mg/dl 120 mg/dl White Blood Count 9.51 K/uL Red Blood Count 4.49 M/uL Hemoglobin 12.6 g/dL Hematocrit 40.0 % Mean Corpuscular Volume 89.1 fL Mean Corpuscular Hemoglobin 28.1 pg Mean Corpuscular Hemoglobin Concent 31.5 g/dl RDW Standard Deviation 56.4 fL RDW Coefficient of Variation 17.7 % Platelet Count 158 K/uL Mean Platelet Volume 10.9 fL Sodium Level 141 mmol/L Potassium Level 4.6 mmol/L Chloride Level 109 mmol/L Carbon Dioxide Level 24 mmol/L Anion Gap 8.0 mmol/L Blood Urea Nitrogen 24 mg/dl Creatinine 1.00 mg/dl Est Creatinine Clear Calc Drug Dose 69.0 ml/min Estimated GFR () 85.6 Estimated GFR (Non- 73.8 BUN/Creatinine Ratio 24.1 Random Glucose 152 mg/dl Calcium Level 8.6 mg/dl Test 01/22/17 08:01 Bedside Glucose 105 mg/dl Assessment & Plan SHORTNESS OF BREATH CHRONIC HYPOXIC RESPIRATORY FAILURE Due to COPD exacerbation secondary to multifocal pneumonia, health care associated, possible aspiration Has underlying severe COPD and idiopathic sleep related nonobstructive alveolar hypoventilation S/p bronch on 01/15 -- gradually improving daily on 2 liters NC, baseline -- repeat CXR: improved continue nebs, taper solumedrol, continue zosyn -- discussed with Pulmonary -- will complete Zosyn today continue to taper Solumedrol continue to monitor response DIARRHEA -- resolved HX MILD DIASTOLIC DYSFUNCTION/ HX S/P AVR 03/2014 -- on Lasix 40 mg PO daily -- euvolemic HYPERTENSION BP stable Continue metoprolol DM TYPE 2 A1c 7.3 in 10/2016 Hold glimepiride NovoLog sliding scale CEREBROVASCULAR DISEASE Continue Plavix, statin ANXIETY/ DEPRESSION Continue Paxil and PRN Klonopin ? PULMONARY NODULE CTA chest- Solid 13 mm pulmonary nodule at the right lower lobe may be another site of infection/pneumonia. However, follow-up after treatment to ensure resolution is recommended. DVT PROPHYLAXIS On Lovenox CODE STATUS DNR DISPOSITION anticipate d/c to Rehab in 1-2 days Consultants: Pulmonary Procedures: Bronchoscopy Consultants: Pulmonary Procedures: Bronchoscopy Current Inpatient Medications: Current Inpatient Medications Medications (Trade) Dose Ordered Sig/Aj Route Start Time Stop Time Status Last Admin Dose Admin Albuterol/ Ipratropium (Duoneb) 3 ml QIDR INH 01/13/17 12:00 02/12/17 11:59 01/21/17 15:47 3 ML Enoxaparin Sodium (Lovenox Inj) 40 mg Q24H SQ 01/13/17 21:00 02/12/17 20:59 01/21/17 20:27 40 MG Acetaminophen (Tylenol Tab) 650 mg Q4H PRN PO 01/13/17 11:45 02/12/17 11:44 01/13/17 16:59 650 MG Ondansetron HCl (Zofran Inj) 4 mg Q6H PRN IV 01/13/17 11:45 02/12/17 11:44 01/19/17 08:53 4 MG Insulin Aspart (novoLOG ASPART) SLIDING SCALE If C... ACHS SC 01/13/17 16:00 02/12/17 15:59 01/22/17 08:49 6 UNITS Glucose (Glucose 40% Gel) 15-30 GRAMS 15 GRAMS... UD PRN PO 01/13/17 12:00 9/15/17 11:59 Glucose (Glucose Chew Tab) 4-8 Tablets 4 Tabl... UD PRN PO 01/13/17 12:00 02/12/17 11:59 Dextrose (Dextrose 50% 50ML Syringe) 25-50ML OF 50% DW IV FOR... UD PRN IV 01/13/17 12:00 02/12/17 11:59 Glucagon (Glucagon Inj) 1 mg UD PRN SQ 01/13/17 12:00 02/12/17 11:59 Acetylcysteine (Mucomyst 20% Inh Soln) 3 ml BIDR INH 01/13/17 20:00 02/12/17 19:59 01/21/17 15:48 3 ML Albuterol (Ventolin Hfa Inhaler) 2 puffs Q4H PRN INH 01/13/17 12:00 02/12/17 11:59 Atorvastatin Calcium (Lipitor Tab) 20 mg DAILYBD PO 01/13/17 16:00 02/12/17 15:59 01/21/17 16:15 20 MG Clonazepam (Klonopin Tab) 0.5 mg Q8H PRN PO 01/13/17 12:00 02/12/17 11:59 01/21/17 20:25 0.5 MG Clopidogrel Bisulfate (plAVix TAB) 75 mg DAILY PO 01/14/17 09:00 02/13/17 08:59 01/22/17 08:54 75 MG Ferrous Gluconate (Ferrous Gluconate Tab) 324 mg BIDM PO 01/13/17 17:00 02/12/17 17:59 01/22/17 08:53 324 MG Finasteride (Proscar Tab) 5 mg DAILY PO 01/14/17 09:00 02/13/17 08:59 01/22/17 08:54 5 MG Fluticasone Propionate (Flonase Nasal [place]) 2 sprays DAILY LISETTE 01/14/17 09:00 02/13/17 08:59 01/22/17 08:51 2 SPRAYS Formoterol Fumarate (Perforomist 20MCG/2ML Neb Soln) 20 mcg BIDR INH 01/13/17 20:00 02/12/17 19:59 01/22/17 07:21 20 MCG Furosemide (Lasix Tab) 40 mg DAILY PO 01/14/17 09:00 02/13/17 08:59 01/22/17 08:55 40 MG Guaifenesin (Mucinex Contr Rel Tab) 600 mg Q12 PO 01/13/17 21:00 02/12/17 20:59 01/22/17 08:53 600 MG Montelukast Sodium (Singulair Tab) 10 mg QPM PO 01/13/17 21:00 02/12/17 20:59 01/21/17 20:27 10 MG Nicotine (Nicoderm Cq 14MG Patch) 1 patch DAILY TD 01/14/17 09:00 02/13/17 08:59 01/22/17 08:52 1 PATCH Pantoprazole Sodium (Protonix Tab) 40 mg DAILYBB PO 01/14/17 06:30 02/13/17 06:59 01/22/17 08:54 40 MG Paroxetine HCl (pAXil TAB) 20 mg DAILY PO 01/14/17 09:00 02/13/17 08:59 01/22/17 08:54 20 MG Pregabalin (Lyrica Cap) 150 mg BID PO 01/13/17 21:00 02/12/17 20:59 01/22/17 09:00 150 MG Roflumilast (Daliresp Tab) 500 mcg DAILY PO 01/14/17 09:00 02/13/17 08:59 01/22/17 08:53 500 MCG Senna/Docusate Sodium (Senokot S Tab) 1 tab HS PO 01/13/17 21:00 02/12/17 20:59 01/21/17 20:27 1 TAB Cholecalciferol (Vitamin D Tab) 6,000 inter.unit DAILYBB PO 01/14/17 06:30 02/13/17 06:59 01/22/17 08:53 6,000 INTER.UNIT Miscellaneous Information (Order Awaiting Action) 1 ea QS N/A 01/13/17 16:00 02/12/17 15:59 Piperacillin Sod/ Tazobactam Sod (Consult) 1 ea UD N/A 01/13/17 13:56 02/12/17 13:55 Miscellaneous (Remove Nicoderm Patch) 1 ea HS N/A 01/13/17 21:00 02/12/17 20:59 01/21/17 20:27 1 EA Budesonide (Pulmicort Respules 0.25MG/ 2ML Neb Soln) 0.25 mg BIDR INH 01/13/17 20:00 02/12/17 19:59 01/22/17 07:21 0.25 MG Tramadol HCl (Ultram Tab) 50 mg Q6 PRN PO 01/13/17 19:30 02/12/17 19:29 01/21/17 20:25 50 MG Miscellaneous Information (Consult Glycemic Management Pharmacy) 1 ea UD PRN N/A 01/15/17 18:44 02/14/17 18:43 Metoprolol Tartrate (Lopressor Tab) 12.5 mg Q12 PO 01/17/17 09:00 02/12/17 20:59 01/21/17 20:30 12.5 MG Potassium Chloride (Klor-Con M10) 20 meq BID PO 01/17/17 08:00 02/16/17 07:59 01/22/17 08:54 20 MEQ Piperacillin Sod/ Tazobactam Sod 3.375 gm/Dextrose 115 ml @ 28.75 mls/ hr Q8@0000,0800,1600 IV 01/21/17 16:00 01/23/17 15:59 01/22/17 08:51 28.75 MLS/HR Methylprednisolone Sodium Succinate 40 mg/Syringe 0.64 ml @ 1.5 mls/min Q12 IV 01/21/17 21:00 02/12/17 21:59 01/22/17 09:00 1.5 MLS/MIN Insulin Glargine (Lantus Solostar Pen) SEE PROTOCOL TEXT BID SC 01/22/17 09:00 02/21/17 08:59 01/22/17 08:50 10 UNITS
--- NOTE | 2017-01-22 10:49 | Pharmacy Progress Note ---
Glycemic Control Progress Note Date of Service Jan 22, 2017. Scope Glycemic Pharmacist consulted for glycemic control to write orders per [facility] inpatient glycemic control protocol. Objective Accuchecks BSG (last 24hrs): Test 01/21/17 11:35 01/21/17 16:06 01/21/17 19:41 01/22/17 05:20 Bedside Glucose 130 mg/dl (70-99) 133 mg/dl (70-99) 120 mg/dl (70-99) Random Glucose 152 mg/dl (70-99) Test 01/22/17 08:01 Bedside Glucose 105 mg/dl (70-99) HbA1c: Test 01/16/17 06:13 Hemoglobin A1c 8.1 % (4.5-5.6) H Recent Pertinent Medications The patient is currently receiving: * Basal insulin: Lantus 15 units every 12 hours * Correctional Insulin: Novolog Correction per scale ACHS Goal Range: Low 110 mg/dL - High 140 mg/dL Correction Factor: 15 mg/dL/unit * Prandial insulin: Per carb ratio of 1 unit per 5 grams CHO consumed Outpatient Anti-Diabetic Meds Oral Agents * Glimepiride 2 mg PO BID Bolus Insulin * Novolog ACHS Assessment & Plan ASSESSMENT: * See progress note from 01/19/17 for more background info, in short: * 76 yo M admitted with aspiration pneumonia requiring basal/bolus insulin due to hyperglycemia secondary to baseline DM (outpatient regimen on hold), stress/ infection, recent bronch and high dose steroids * Patient is currently receiving an average of 52 units of insulin per day * 30 units of basal insulin * 22 units of prandial/correctional insulin * BSGs ranging 96-133 mg/dl over the past 24hrs * Changes needed to insulin regimen: * AM Fasting BSG = 105 mg/dl. This is at goal range for patient based on inpatient targets and co-morbidities, however, I will back of basal insulin in attempt to re-distribute regimen since it is currently highly basal weighted. I anticipate this is covering some of the patients post-prandial needs. * Post-prandial BSGs are in range. CF/CR may require loosening later today due to decrease in IV steroids. * Additional notes / comments: * Patient has been maintained on high dose IV steroids since 01/13 - steroids were tapered from 40 mg q8 to q12 starting today. * Will titrate insulin with each step down in steroids. PLAN FOR INPATIENT GLYCEMIC CONTROL: * Oral Agents * Continue to hold outpatient oral diabetes medications. * Basal insulin * Lantus 10-15 units SQ BID * 10 units for BSG less than 140 mg/dL * 15 units for BSG 140 mg/dL or more * Bolus insulin - loosen parameters * NovoLog per scale ACHS or Q6hrs while NPO * Goal Range: Low 110 mg/dL - High 140 mg/dL * Correction Factor: 20 mg/dL/unit * Nutritional / Prandial insulin per carb ratio of 1 unit per 6 grams CHO consumed RECOMMENDATIONS FOR DISCHARGE: * D/C glimepiride (increased risk of hypoglycemia in elderly) * Consider initiating Lantus 15 units once daily (0.2 units/kg/day) * Please note that the plan above was derived based on current level of insulin resistance and hospital stress. These recommendations are appropriate for inpatient admission only. Plan of care upon discharge will need to be reassessed to avoid potential outpatient hypo/hyperglycemia.
[2017-01-22] MEDS: ACETYLCYSTEINE 20% INHAL SOLN ***DISPENSED BY RESP. INH SCH ×2 (11:15→15:39)
[2017-01-22] MEDS: TRAMADOL HCL 50 MG TAB PO PRN ×2 (13:39→19:35)
--- NOTE | 2017-01-22 14:11 | Pulmonology Progress Note ---
Pulmonary Progress Note Date of Service Jan 22, 2017. Attending Dr. Siddiqui Subjective Patient states that he overall is feeling better. He feels that initially, he started to improve, and then he had a 'bad day' yesterday. His breathing acutely worsened. CXR was completed, and showed no acute cardiopulmonary disease. Previous CXR showed some left lower lung opacities. He otherwise has been having some slight cough on and off, but he denies chest pain, mucus production, or increasing SOB. He has continued to have diarrhea. C. Diff toxin pending. Labs reviewed: WBC 9.51 Hgb 12.6 Creatinine 1.00 BUN 24 Anion Gap 8.0 CMV studies pending Studies reviewed: CXR 01/21 No acute cardiopulmonary disease Image reviewed by me. Micro: Sputum 01/16 with light normal amanda Bronch washings: Crystal Albicans but otherwise negative. AFB pending. AFB smear negative Reviewed inpatient medications: Patient continues on IV Zosyn. Today is day 10 Objective General: Patient is awake, alert, cooperative, and in no acute distress. Well developed. Well-nourished. Head: Normocephalic, Atraumatic. ENT: PERRLA, No discharge, EOMI, Sclera normal Neck: Normal ROM. Trachea midline. No stridor Respiratory: Moderate rhonchi heard throughout b/l lungs especially on expiration. No respiratory distress. No accessory muscle use. Cardiovascular: Distant heart sounds Abdomen: Normal bowel sounds hear throughout. Back: Normal inspection. Extremities: No edema, cyanosis. Neuro: Alert. CN II-XII grossly intact. Sensation and motor function grossly intact. Psych: Mood and affect are normal. Assessment & Plan Severe COPD exacerbation Multifocal pneumonia Aspiration Diastolic dysfunction Right lower lobe pulmonary nodule Patient s/p bronchoscopy. Bronch washings grew Crystal albicans, but otherwise no bacterial growth. AFB final cx pending.Path showed no malignant cells and benign squamous and bronchial epithelial cells. Patient continues on IV Zosyn. Has completed 10 days. Feel he has completed appropriate treatment. Continue nasal cannula O2 and BiPAP at night and prn. Continue current pulmonary toilet. Video swallow evaluation showed that patient is aspirating on thin liquids. Follow recommendations of speech Pulmonary nodule- may be secondary to infection- recommend CT in 6 weeks to re- evaluate this nodule. Follows with pulmonary in [place] and will need follow up after discharge. Patient and case reviewed and plan agreed upon. Data Medications: Current Inpatient Medications Medications (Trade) Dose Ordered Sig/Aj Route Start Time Stop Time Status Last Admin Dose Admin Albuterol/ Ipratropium (Duoneb) 3 ml QIDR INH 01/13/17 12:00 02/12/17 11:59 01/21/17 15:47 3 ML Enoxaparin Sodium (Lovenox Inj) 40 mg Q24H SQ 01/13/17 21:00 02/12/17 20:59 01/21/17 20:27 40 MG Acetaminophen (Tylenol Tab) 650 mg Q4H PRN PO 01/13/17 11:45 02/12/17 11:44 01/13/17 16:59 650 MG Ondansetron HCl (Zofran Inj) 4 mg Q6H PRN IV 01/13/17 11:45 02/12/17 11:44 01/19/17 08:53 4 MG Insulin Aspart (novoLOG ASPART) SLIDING SCALE If C... ACHS SC 01/13/17 16:00 02/12/17 15:59 01/22/17 08:49 6 UNITS Glucose (Glucose 40% Gel) 15-30 GRAMS 15 GRAMS... UD PRN PO 01/13/17 12:00 02/12/17 11:59 Glucose (Glucose Chew Tab) 4-8 Tablets 4 Tabl... UD PRN PO 01/13/17 12:00 02/12/17 11:59 Dextrose (Dextrose 50% 50ML Syringe) 25-50ML OF 50% DW IV FOR... UD PRN IV 01/13/17 12:00 02/12/17 11:59 Glucagon (Glucagon Inj) 1 mg UD PRN SQ 01/13/17 12:00 02/12/17 11:59 Acetylcysteine (Mucomyst 20% Inh Soln) 3 ml BIDR INH 01/13/17 20:00 02/12/17 19:59 01/21/17 15:48 3 ML Albuterol (Ventolin Hfa Inhaler) 2 puffs Q4H PRN INH 01/13/17 12:00 02/12/17 11:59 Atorvastatin Calcium (Lipitor Tab) 20 mg DAILYBD PO 01/13/17 16:00 02/12/17 15:59 01/21/17 16:15 20 MG Clonazepam (Klonopin Tab) 0.5 mg Q8H PRN PO 01/13/17 12:00 02/12/17 11:59 01/21/17 20:25 0.5 MG Clopidogrel Bisulfate (plAVix TAB) 75 mg DAILY PO 01/14/17 09:00 02/13/17 08:59 01/22/17 08:54 75 MG Ferrous Gluconate (Ferrous Gluconate Tab) 324 mg BIDM PO 01/13/17 17:00 02/12/17 17:59 01/22/17 08:53 324 MG Finasteride (Proscar Tab) 5 mg DAILY PO 01/14/17 09:00 02/13/17 08:59 01/22/17 08:54 5 MG Fluticasone Propionate (Flonase Nasal [place]) 2 sprays DAILY LISETTE 01/14/17 09:00 02/13/17 08:59 01/22/17 08:51 2 SPRAYS Formoterol Fumarate (Perforomist 20MCG/2ML Neb Soln) 20 mcg BIDR INH 01/13/17 20:00 02/12/17 19:59 01/22/17 07:21 20 MCG Furosemide (Lasix Tab) 40 mg DAILY PO 01/14/17 09:00 02/13/17 08:59 01/22/17 08:55 40 MG Guaifenesin (Mucinex Contr Rel Tab) 600 mg Q12 PO 01/13/17 21:00 02/12/17 20:59 01/22/17 08:53 600 MG Montelukast Sodium (Singulair Tab) 10 mg QPM PO 01/13/17 21:00 02/12/17 20:59 01/21/17 20:27 10 MG Nicotine (Nicoderm Cq 14MG Patch) 1 patch DAILY TD 01/14/17 09:00 02/13/17 08:59 01/22/17 08:52 1 PATCH Pantoprazole Sodium (Protonix Tab) 40 mg DAILYBB PO 01/14/17 06:30 02/13/17 06:59 01/22/17 08:54 40 MG Paroxetine HCl (pAXil TAB) 20 mg DAILY PO 01/14/17 09:00 02/13/17 08:59 01/22/17 08:54 20 MG Pregabalin (Lyrica Cap) 150 mg BID PO 01/13/17 21:00 02/12/17 20:59 01/22/17 09:00 150 MG Roflumilast (Daliresp Tab) 500 mcg DAILY PO 01/14/17 09:00 02/13/17 08:59 01/22/17 08:53 500 MCG Senna/Docusate Sodium (Senokot S Tab) 1 tab HS PO 01/13/17 21:00 02/12/17 20:59 01/21/17 20:27 1 TAB Cholecalciferol (Vitamin D Tab) 6,000 inter.unit DAILYBB PO 01/14/17 06:30 02/13/17 06:59 01/22/17 08:53 6,000 INTER.UNIT Miscellaneous Information (Order Awaiting Action) 1 ea QS N/A 01/13/17 16:00 02/12/17 15:59 Piperacillin Sod/ Tazobactam Sod (Consult) 1 ea UD N/A 01/13/17 13:56 02/12/17 13:55 Miscellaneous (Remove Nicoderm Patch) 1 ea HS N/A 01/13/17 21:00 02/12/17 20:59 01/21/17 20:27 1 EA Budesonide (Pulmicort Respules 0.25MG/ 2ML Neb Soln) 0.25 mg BIDR INH 01/13/17 20:00 02/12/17 19:59 01/22/17 07:21 0.25 MG Tramadol HCl (Ultram Tab) 50 mg Q6 PRN PO 01/13/17 19:30 02/12/17 19:29 01/21/17 20:25 50 MG Miscellaneous Information (Consult Glycemic Management Pharmacy) 1 ea UD PRN N/A 01/15/17 18:44 02/14/17 18:43 Metoprolol Tartrate (Lopressor Tab) 12.5 mg Q12 PO 01/17/17 09:00 02/12/17 20:59 01/21/17 20:30 12.5 MG Potassium Chloride (Klor-Con M10) 20 meq BID PO 01/17/17 08:00 02/16/17 07:59 01/22/17 08:54 20 MEQ Piperacillin Sod/ Tazobactam Sod 3.375 gm/Dextrose 115 ml @ 28.75 mls/ hr Q8@0000,0800,1600 IV 01/21/17 16:00 01/23/17 15:59 01/22/17 08:51 28.75 MLS/HR Methylprednisolone Sodium Succinate 40 mg/Syringe 0.64 ml @ 1.5 mls/min Q12 IV 01/21/17 21:00 02/12/17 21:59 01/22/17 09:00 1.5 MLS/MIN Insulin Glargine (Lantus Solostar Pen) SEE PROTOCOL TEXT BID SC 01/22/17 09:00 02/21/17 08:59 01/22/17 08:50 10 UNITS Vital Signs: Date Time Temp Pulse Resp B/P (MAP) Pulse Ox O2 Delivery O2 Flow Rate FiO2 01/22/17 07:42 36.5 51 20 134/74 (94) 97 Nasal Cannula 2.0 01/22/17 07:25 88 18 95 Nasal Cannula 2.0 01/22/17 00:16 36.7 68 18 115/70 (85) 95 2.0 01/22/17 00:00 96 Nasal Cannula 2.0 01/21/17 19:05 89 18 96 Nasal Cannula 2.0 01/21/17 16:19 36.5 104 20 130/83 (99) 92 Nasal Cannula 1.0 01/21/17 16:00 94 Nasal Cannula 1.0 01/21/17 15:50 87 18 97 Nasal Cannula 1.0 01/21/17 11:39 76 16 96 Nasal Cannula 1.0 Laboratory Results: Last 24 Hours Test 01/21/17 11:35 01/21/17 16:06 01/21/17 19:41 01/22/17 05:20 Bedside Glucose 130 mg/dl 133 mg/dl 120 mg/dl White Blood Count 9.51 K/uL Red Blood Count 4.49 M/uL Hemoglobin 12.6 g/dL Hematocrit 40.0 % Mean Corpuscular Volume 89.1 fL Mean Corpuscular Hemoglobin 28.1 pg Mean Corpuscular Hemoglobin Concent 31.5 g/dl RDW Standard Deviation 56.4 fL RDW Coefficient of Variation 17.7 % Platelet Count 158 K/uL Mean Platelet Volume 10.9 fL Sodium Level 141 mmol/L Potassium Level 4.6 mmol/L Chloride Level 109 mmol/L Carbon Dioxide Level 24 mmol/L Anion Gap 8.0 mmol/L Blood Urea Nitrogen 24 mg/dl Creatinine 1.00 mg/dl Est Creatinine Clear Calc Drug Dose 69.0 ml/min Estimated GFR () 85.6 Estimated GFR (Non- 73.8 BUN/Creatinine Ratio 24.1 Random Glucose 152 mg/dl Calcium Level 8.6 mg/dl Test 01/22/17 08:01 Bedside Glucose 105 mg/dl
[2017-01-22] MEDS: ATORVASTATIN 20 MG TAB PO SCH (16:43)
[2017-01-22] MEDS: MONTELUKAST SOD 10 MG TAB PO SCH (21:37)
[2017-01-22] MEDS: DOCUSATE SODIUM/SENNA 50/8.6MG TAB PO SCH (21:37)
[2017-01-22] MEDS: ENOXAPARIN 40 MG/0.4 ML SYR SQ SCH (21:38)
[2017-01-23] VITALS (10 sets, daily range): BP systolic 122–135; BP diastolic 63–80; PULSE 51–100; TEMP 36.6–36.7; O2SAT 95–98
[2017-01-23] MEDS: PIPERACILL/TAZOBAC IV 3.375 GM in DEXTROSE 5% 100ML IV SCH ×2 (00:06→07:45)
[2017-01-23] MEDS ORDERED: NURSING VERBAL MED ORDER ONE (00:15)
[2017-01-23] MEDS: ZOLPIDEM TARTRATE 5 MG TAB PO PRN ×2 (00:24→21:28)
[2017-01-23] MEDS: CHOLECALCIFEROL 1000 INTER.UNIT TAB PO SCH (06:19)
[2017-01-23] MEDS: PANTOprazole SOD 40 MG TAB PO SCH (06:20)
[2017-01-23] MEDS: PREGABALIN 150 MG CAP PO SCH ×2 (07:46→21:28)
[2017-01-23] MEDS: GUAIFENESIN 600 MG TABCR PO SCH ×2 (07:46→20:53)
[2017-01-23] MEDS: NICOTINE 14 MG/24 HR TDSY TD SCH (07:46)
[2017-01-23] MEDS: PAROXETINE 20 MG TAB PO SCH (07:46)
[2017-01-23] MEDS: CLOPIDOGREL BISULFATE 75 MG TAB PO SCH (07:46)
[2017-01-23] MEDS: FUROSEMIDE 40 MG TAB PO SCH (07:46)
[2017-01-23] MEDS: ROFLUMILAST 500 MCG TAB PO SCH (07:46)
[2017-01-23] MEDS: FERROUS GLUCONATE 324 MG TAB PO SCH ×2 (07:46→17:41)
[2017-01-23] MEDS: FINASTERIDE 5 MG TAB PO SCH (07:46)
[2017-01-23] MEDS: METOPROLOL TARTRATE 25 MG TAB PO SCH ×2 (07:47→20:53)
[2017-01-23] MEDS: FLUTICASONE PROPIONATE NA SPR 16 GM BTL NAE SCH (07:47)
[2017-01-23] MEDS: POTASSIUM CHLORIDE 10 MEQ TABCR PO SCH ×2 (07:47→20:52)
[2017-01-23] MEDS: BUDESONIDE 0.25 MG/2 ML VIAL (PULMICORT) INH SCH ×2 (07:58→19:35)
[2017-01-23] MEDS: FORMOTEROL FUMA NEBULIZER SOLN 20 MCG/2 ML VIAL INH SCH ×2 (07:58→19:35)
[2017-01-23] MEDS: ALBUT/IPRATROP 3MG/0.5MG NEB 3 ML VIAL INH SCH ×4 (08:00→19:29)
[2017-01-23] MEDS: INSULIN ASPART 100 UNITS/ML 3 ML PEN SC SCH ×4 (08:59→20:31)
[2017-01-23] MEDS: INSULIN GLARGINE SOLOSTAR 100 UNITS/ML 3 ML PEN SC SCH ×2 (09:00→21:28)
[2017-01-23] MEDS: METHYLPREDNISOLONE IV 40 MG in SYRINGE 0 ML IV SCH (09:00)
[2017-01-23] MEDS: ACETYLCYSTEINE 20% INHAL SOLN ***DISPENSED BY RESP. INH SCH ×2 (11:11→14:41)
[2017-01-23] MEDS: ATORVASTATIN 20 MG TAB PO SCH (17:41)
--- NOTE | 2017-01-23 18:21 | Progress Note ---
Medicine Progress Note Date & Time of Visit: Jan 23, 2017 at 18:15. Subjective patient seen resting in bedside chair, in good spirits states his breathing is about the same as yesterday walked in the halls today, states he had to take breaks due to dyspnea cough improving denies chest pain no other symptoms Objective Last 8 Hrs Date Time Temp Pulse Resp B/P (MAP) Pulse Ox O2 Delivery O2 Flow Rate FiO2 01/23/17 16:00 Nasal Cannula 2.0 01/23/17 14:42 94 16 96 Nasal Cannula 2.0 01/23/17 14:29 100 18 122/63 (82) 95 Humidified Oxygen 1.5 01/23/17 11:12 62 16 97 Nasal Cannula 2.0 Physical Exam: General- oriented x 3, not in distress, speaks in sentences with no effort Lungs-(+) mild scattered rhonchi at the right base, no wheezing Heart- regular rhythm; no murmur, normal rate Abdomen- normal bowel sounds, soft, nontender Extremities- no pretibial edema, no calf tenderness Neuro- alert, oriented x 3;no gross focal deficits Skin- warm & dry Laboratory Results: Last 24 Hours Test 01/22/17 19:46 01/23/17 07:57 01/23/17 11:38 01/23/17 16:57 Bedside Glucose 224 mg/dl 103 mg/dl 195 mg/dl 94 mg/dl Assessment & Plan SHORTNESS OF BREATH CHRONIC HYPOXIC RESPIRATORY FAILURE Due to COPD exacerbation secondary to multifocal pneumonia, health care associated, possible aspiration Has underlying severe COPD and idiopathic sleep related nonobstructive alveolar hypoventilation S/p bronch on 01/15 -- gradually improving daily on 2 liters NC, baseline -- repeat CXR: improved continue nebs, taper solumedrol, continue zosyn -- discussed with Pulmonary -- completed Zosyn Solumedrol being tapered down, 60mg IV today then transition to Prednisone tomorrow remains stable so far DIARRHEA -- resolved HX MILD DIASTOLIC DYSFUNCTION/ HX S/P AVR 03/2014 -- on Lasix 40 mg PO daily -- euvolemic HYPERTENSION BP stable Continue metoprolol DM TYPE 2 A1c 7.3 in 10/2016 Hold glimepiride NovoLog sliding scale CEREBROVASCULAR DISEASE Continue Plavix, statin ANXIETY/ DEPRESSION Continue Paxil and PRN Klonopin ? PULMONARY NODULE CTA chest- Solid 13 mm pulmonary nodule at the right lower lobe may be another site of infection/pneumonia. However, follow-up after treatment to ensure resolution is recommended. DVT PROPHYLAXIS On Lovenox CODE STATUS DNR DISPOSITION anticipate d/c to Rehab in 1-2 days Consultants: Pulmonary Procedures: Bronchoscopy Consultants: Pulmonary Procedures: Bronchoscopy Current Inpatient Medications: Current Inpatient Medications Medications (Trade) Dose Ordered Sig/Aj Route Start Time Stop Time Status Last Admin Dose Admin Albuterol/ Ipratropium (Duoneb) 3 ml QIDR INH 01/13/17 12:00 02/12/17 11:59 01/23/17 14:41 3 ML Enoxaparin Sodium (Lovenox Inj) 40 mg Q24H SQ 01/13/17 21:00 02/12/17 20:59 01/22/17 21:38 40 MG Acetaminophen (Tylenol Tab) 650 mg Q4H PRN PO 01/13/17 11:45 02/12/17 11:44 01/13/17 16:59 650 MG Ondansetron HCl (Zofran Inj) 4 mg Q6H PRN IV 01/13/17 11:45 02/12/17 11:44 01/19/17 08:53 4 MG Insulin Aspart (novoLOG ASPART) SLIDING SCALE If C... ACHS SC 01/13/17 16:00 02/12/17 15:59 01/23/17 17:47 11 UNITS Glucose (Glucose 40% Gel) 15-30 GRAMS 15 GRAMS... UD PRN PO 01/13/17 12:00 02/12/17 11:59 Glucose (Glucose Chew Tab) 4-8 Tablets 4 Tabl... UD PRN PO 01/13/17 12:00 02/12/17 11:59 Dextrose (Dextrose 50% 50ML Syringe) 25-50ML OF 50% DW IV FOR... UD PRN IV 01/13/17 12:00 02/12/17 11:59 Glucagon (Glucagon Inj) 1 mg UD PRN SQ 01/13/17 12:00 02/12/17 11:59 Acetylcysteine (Mucomyst 20% Inh Soln) 3 ml BIDR INH 01/13/17 20:00 02/12/17 19:59 01/23/17 14:41 3 ML Albuterol (Ventolin Hfa Inhaler) 2 puffs Q4H PRN INH 01/13/17 12:00 02/12/17 11:59 Atorvastatin Calcium (Lipitor Tab) 20 mg DAILYBD PO 01/13/17 16:00 02/12/17 15:59 01/23/17 17:41 20 MG Clonazepam (Klonopin Tab) 0.5 mg Q8H PRN PO 01/13/17 12:00 02/12/17 11:59 01/21/17 20:25 0.5 MG Clopidogrel Bisulfate (plAVix TAB) 75 mg DAILY PO 01/14/17 09:00 02/13/17 08:59 01/23/17 07:46 75 MG Ferrous Gluconate (Ferrous Gluconate Tab) 324 mg BIDM PO 01/13/17 17:00 02/12/17 17:59 01/23/17 17:41 324 MG Finasteride (Proscar Tab) 5 mg DAILY PO 01/14/17 09:00 02/13/17 08:59 01/23/17 07:46 5 MG Fluticasone Propionate (Flonase Nasal [place]) 2 sprays DAILY LISETTE 01/14/17 09:00 02/13/17 08:59 01/23/17 07:47 2 SPRAYS Formoterol Fumarate (Perforomist 20MCG/2ML Neb Soln) 20 mcg BIDR INH 01/13/17 20:00 02/12/17 19:59 01/23/17 07:58 20 MCG Furosemide (Lasix Tab) 40 mg DAILY PO 01/14/17 09:00 02/13/17 08:59 01/23/17 07:46 40 MG Guaifenesin (Mucinex Contr Rel Tab) 600 mg Q12 PO 01/13/17 21:00 02/12/17 20:59 01/23/17 07:46 600 MG Montelukast Sodium (Singulair Tab) 10 mg QPM PO 01/13/17 21:00 02/12/17 20:59 01/22/17 21:37 10 MG Nicotine (Nicoderm Cq 14MG Patch) 1 patch DAILY TD 01/14/17 09:00 02/13/17 08:59 01/23/17 07:46 1 PATCH Pantoprazole Sodium (Protonix Tab) 40 mg DAILYBB PO 01/14/17 06:30 02/13/17 06:59 01/23/17 06:20 40 MG Paroxetine HCl (pAXil TAB) 20 mg DAILY PO 01/14/17 09:00 02/13/17 08:59 01/23/17 07:46 20 MG Pregabalin (Lyrica Cap) 150 mg BID PO 01/13/17 21:00 02/12/17 20:59 01/23/17 07:46 150 MG Roflumilast (Daliresp Tab) 500 mcg DAILY PO 01/14/17 09:00 02/13/17 08:59 01/23/17 07:46 500 MCG Senna/Docusate Sodium (Senokot S Tab) 1 tab HS PO 01/13/17 21:00 02/12/17 20:59 01/22/17 21:37 1 TAB Cholecalciferol (Vitamin D Tab) 6,000 inter.unit DAILYBB PO 01/14/17 06:30 02/13/17 06:59 01/23/17 06:19 6,000 INTER.UNIT Miscellaneous Information (Order Awaiting Action) 1 ea QS N/A 01/13/17 16:00 02/12/17 15:59 Miscellaneous (Remove Nicoderm Patch) 1 ea HS N/A 01/13/17 21:00 02/12/17 20:59 01/22/17 21:48 1 EA Budesonide (Pulmicort Respules 0.25MG/ 2ML Neb Soln) 0.25 mg BIDR INH 01/13/17 20:00 02/12/17 19:59 01/23/17 07:58 0.25 MG Tramadol HCl (Ultram Tab) 50 mg Q6 PRN PO 01/13/17 19:30 02/12/17 19:29 01/22/17 19:35 50 MG Miscellaneous Information (Consult Glycemic Management Pharmacy) 1 ea UD PRN N/A 01/15/17 18:44 02/14/17 18:43 Metoprolol Tartrate (Lopressor Tab) 12.5 mg Q12 PO 01/17/17 09:00 02/12/17 20:59 01/22/17 21:40 12.5 MG Potassium Chloride (Klor-Con M10) 20 meq BID PO 01/17/17 08:00 02/16/17 07:59 01/23/17 07:47 20 MEQ Insulin Glargine (Lantus Solostar Pen) SEE PROTOCOL TEXT BID SC 01/22/17 09:00 02/21/17 08:59 01/23/17 09:00 10 UNITS Zolpidem Tartrate (Ambien Tab) 5 mg HSZ PRN PO 01/23/17 00:30 02/22/17 00:29 01/23/17 00:24 5 MG Methylprednisolone Sodium Succinate 20 mg/Syringe 0.32 ml @ 1.5 mls/min 2100 ONCE IV 01/23/17 21:00 01/23/17 21:01 Prednisone (PredniSONE TAB) 60 mg DAILY PO 01/24/17 08:00 02/23/17 07:59
[2017-01-23] MEDS: MONTELUKAST SOD 10 MG TAB PO SCH (20:53)
[2017-01-23] MEDS: ENOXAPARIN 40 MG/0.4 ML SYR SQ SCH (20:53)
[2017-01-23] MEDS ORDERED: METHYLPREDNISOLONE IV 20 MG in SYRINGE 0 ML IV ONE (21:00)
[2017-01-23] MEDS: TRAMADOL HCL 50 MG TAB PO PRN (21:05)
[2017-01-23] MEDS: DOCUSATE SODIUM/SENNA 50/8.6MG TAB PO SCH (21:58)
[2017-01-24] VITALS (9 sets, daily range): BP systolic 112–120; BP diastolic 69–74; PULSE 55–77; TEMP 36.6–36.7; O2SAT 93–98
[2017-01-24] MEDS: PANTOprazole SOD 40 MG TAB PO SCH (05:51)
[2017-01-24] MEDS: CHOLECALCIFEROL 1000 INTER.UNIT TAB PO SCH (05:52)
[2017-01-24] MEDS: TRAMADOL HCL 50 MG TAB PO PRN ×3 (05:54→21:01)
[2017-01-24] MEDS: BUDESONIDE 0.25 MG/2 ML VIAL (PULMICORT) INH SCH ×2 (06:56→19:12)
[2017-01-24] MEDS: FORMOTEROL FUMA NEBULIZER SOLN 20 MCG/2 ML VIAL INH SCH ×2 (06:56→19:12)
[2017-01-24] MEDS: CLOPIDOGREL BISULFATE 75 MG TAB PO SCH (08:15)
[2017-01-24] MEDS: FUROSEMIDE 40 MG TAB PO SCH (08:15)
[2017-01-24] MEDS: PAROXETINE 20 MG TAB PO SCH (08:15)
[2017-01-24] MEDS: FERROUS GLUCONATE 324 MG TAB PO SCH ×2 (08:15→17:45)
[2017-01-24] MEDS: FLUTICASONE PROPIONATE NA SPR 16 GM BTL NAE SCH (08:15)
[2017-01-24] MEDS: METOPROLOL TARTRATE 25 MG TAB PO SCH ×2 (08:15→20:50)
[2017-01-24] MEDS: PREGABALIN 150 MG CAP PO SCH ×2 (08:16→20:56)
[2017-01-24] MEDS: POTASSIUM CHLORIDE 10 MEQ TABCR PO SCH ×2 (08:16→20:49)
[2017-01-24] MEDS: GUAIFENESIN 600 MG TABCR PO SCH ×2 (08:16→20:49)
[2017-01-24] MEDS: NICOTINE 14 MG/24 HR TDSY TD SCH (08:16)
[2017-01-24] MEDS: FINASTERIDE 5 MG TAB PO SCH (08:16)
[2017-01-24] MEDS: ROFLUMILAST 500 MCG TAB PO SCH (08:16)
[2017-01-24] MEDS: INSULIN ASPART 100 UNITS/ML 3 ML PEN SC SCH ×4 (09:09→20:56)
[2017-01-24] MEDS: ALBUT/IPRATROP 3MG/0.5MG NEB 3 ML VIAL INH SCH ×3 (11:20→19:12)
[2017-01-24] MEDS: ACETYLCYSTEINE 20% INHAL SOLN ***DISPENSED BY RESP. INH SCH ×2 (11:20→14:56)
--- NOTE | 2017-01-24 13:20 | Pharmacy Progress Note ---
Pharmacy Glycemic Sign Off Nt Date of Service Jan 24, 2017. Assessment & Plan ASSESSMENT: * Pharmacy was consulted by Dr Love on 01/15/17 for glycemic control and to write orders per [facility] inpatient glycemic control protocol. * Major changes made by pharmacy to antidiabetic regimen include: * Initiated basal/bolus regimen for >7 days for steroid-induced hyperglycemia * Over the past 24 hours, IV steroids changed to PO and patient's insulin requirements have dramatically decreased * Spoke with MD today regarding plan for Novolog only moving forward with looser coverage * Do not anticipate further changes in patient status that would quickly deteriorate glycemic control PLAN FOR INPATIENT GLYCEMIC CONTROL: No changes needed to current regimen. * Lantus discontinued this AM * Continue NovoLog per scale ACHS/Q6hrs while NPO * Goal range = 110 -140 mg/dl * CF = 30 mg/dl/unit * CR = 1 unit for ever 10 g CHO consumed --> loosened to 20 by MD today * Pharmacy is signing off of glycemic consult and will no longer be making adjustments to inpatient regimen. Please feel free to re-consult if needed. Thank you.
[2017-01-24] MEDS: LOPERAMIDE HCL 2 MG CAP PO PRN ×2 (15:48→18:11)
[2017-01-24] MEDS: ATORVASTATIN 20 MG TAB PO SCH (17:45)
[2017-01-24] MEDS: DOCUSATE SODIUM/SENNA 50/8.6MG TAB PO SCH (19:54)
--- NOTE | 2017-01-24 20:41 | Progress Note ---
Medicine Progress Note Date & Time of Visit: Jan 24, 2017 at 20:39. Subjective states he feels fine overall today no dyspnea, less cough no chest pain ambulating in the halls, no problems no other symptoms Objective Last 8 Hrs Date Time Temp Pulse Resp B/P (MAP) Pulse Ox O2 Delivery O2 Flow Rate FiO2 01/24/17 19:16 77 18 93 Nasal Cannula 2.0 01/24/17 16:00 Nasal Cannula 2.0 01/24/17 15:38 36.6 55 18 115/69 (84) 95 2.0 01/24/17 14:59 61 18 96 Nasal Cannula 2.0 Physical Exam: General- oriented x 3, not in distress, speaks in sentences with no effort Lungs-(+) very mild rhonchi at the right base, no wheezing Heart- regular rhythm; no murmur, normal rate Abdomen- normal bowel sounds, soft, nontender Extremities- no pretibial edema, no calf tenderness Neuro- alert, oriented x 3;no gross focal deficits Skin- warm & dry Laboratory Results: Last 24 Hours Test 01/24/17 08:01 01/24/17 11:44 01/24/17 16:13 01/24/17 19:45 Bedside Glucose 70 mg/dl 110 mg/dl 218 mg/dl 192 mg/dl Assessment & Plan SHORTNESS OF BREATH CHRONIC HYPOXIC RESPIRATORY FAILURE Due to COPD exacerbation secondary to multifocal pneumonia, health care associated, possible aspiration Has underlying severe COPD and idiopathic sleep related nonobstructive alveolar hypoventilation S/p bronch on 01/15 -- gradually improving daily on 2 liters NC, baseline -- repeat CXR: improved continue nebs, taper solumedrol, continue zosyn -- discussed with Pulmonary -- completed Zosyn Solumedrol tapered, now on Prednisone 60mg po daily tolerating taper, respiratory status stable DIARRHEA -- resolving HX MILD DIASTOLIC DYSFUNCTION/ HX S/P AVR 03/2014 -- on Lasix 40 mg PO daily -- euvolemic HYPERTENSION BP stable Continue metoprolol DM TYPE 2 A1c 7.3 in 10/2016 Hold glimepiride NovoLog sliding scale CEREBROVASCULAR DISEASE Continue Plavix, statin ANXIETY/ DEPRESSION Continue Paxil and PRN Klonopin ? PULMONARY NODULE CTA chest- Solid 13 mm pulmonary nodule at the right lower lobe may be another site of infection/pneumonia. However, follow-up after treatment to ensure resolution is recommended. DVT PROPHYLAXIS On Lovenox CODE STATUS DNR DISPOSITION anticipate d/c to Rehab in 1-2 days Consultants: Pulmonary Procedures: Bronchoscopy Consultants: Pulmonary Procedures: Bronchoscopy Current Inpatient Medications: Current Inpatient Medications Medications (Trade) Dose Ordered Sig/Aj Route Start Time Stop Time Status Last Admin Dose Admin Albuterol/ Ipratropium (Duoneb) 3 ml QIDR INH 01/13/17 12:00 02/12/17 11:59 01/24/17 14:56 3 ML Enoxaparin Sodium (Lovenox Inj) 40 mg Q24H SQ 01/13/17 21:00 02/12/17 20:59 01/23/17 20:53 40 MG Acetaminophen (Tylenol Tab) 650 mg Q4H PRN PO 01/13/17 11:45 02/12/17 11:44 01/13/17 16:59 650 MG Ondansetron HCl (Zofran Inj) 4 mg Q6H PRN IV 01/13/17 11:45 02/12/17 11:44 01/19/17 08:53 4 MG Insulin Aspart (novoLOG ASPART) SLIDING SCALE If C... ACHS SC 01/13/17 16:00 02/12/17 15:59 01/24/17 17:48 5 UNITS Glucose (Glucose 40% Gel) 15-30 GRAMS 15 GRAMS... UD PRN PO 01/13/17 12:00 02/12/17 11:59 Glucose (Glucose Chew Tab) 4-8 Tablets 4 Tabl... UD PRN PO 01/13/17 12:00 02/12/17 11:59 Dextrose (Dextrose 50% 50ML Syringe) 25-50ML OF 50% DW IV FOR... UD PRN IV 01/13/17 12:00 02/12/17 11:59 Glucagon (Glucagon Inj) 1 mg UD PRN SQ 01/13/17 12:00 02/12/17 11:59 Acetylcysteine (Mucomyst 20% Inh Soln) 3 ml BIDR INH 01/13/17 20:00 02/12/17 19:59 01/24/17 14:56 3 ML Albuterol (Ventolin Hfa Inhaler) 2 puffs Q4H PRN INH 01/13/17 12:00 02/12/17 11:59 Atorvastatin Calcium (Lipitor Tab) 20 mg DAILYBD PO 01/13/17 16:00 02/12/17 15:59 01/24/17 17:45 20 MG Clonazepam (Klonopin Tab) 0.5 mg Q8H PRN PO 01/13/17 12:00 02/12/17 11:59 01/21/17 20:25 0.5 MG Clopidogrel Bisulfate (plAVix TAB) 75 mg DAILY PO 01/14/17 09:00 02/13/17 08:59 01/24/17 08:15 75 MG Ferrous Gluconate (Ferrous Gluconate Tab) 324 mg BIDM PO 01/13/17 17:00 02/12/17 17:59 01/24/17 17:45 324 MG Finasteride (Proscar Tab) 5 mg DAILY PO 01/14/17 09:00 02/13/17 08:59 01/24/17 08:16 5 MG Fluticasone Propionate (Flonase Nasal [place]) 2 sprays DAILY LISETTE 01/14/17 09:00 02/13/17 08:59 01/24/17 08:15 2 SPRAYS Formoterol Fumarate (Perforomist 20MCG/2ML Neb Soln) 20 mcg BIDR INH 01/13/17 20:00 02/12/17 19:59 01/24/17 19:12 20 MCG Furosemide (Lasix Tab) 40 mg DAILY PO 01/14/17 09:00 02/13/17 08:59 01/24/17 08:15 40 MG Guaifenesin (Mucinex Contr Rel Tab) 600 mg Q12 PO 01/13/17 21:00 02/12/17 20:59 01/24/17 08:16 600 MG Montelukast Sodium (Singulair Tab) 10 mg QPM PO 01/13/17 21:00 02/12/17 20:59 01/23/17 20:53 10 MG Nicotine (Nicoderm Cq 14MG Patch) 1 patch DAILY TD 01/14/17 09:00 02/13/17 08:59 01/24/17 08:16 1 PATCH Pantoprazole Sodium (Protonix Tab) 40 mg DAILYBB PO 01/14/17 06:30 02/13/17 06:59 01/24/17 05:51 40 MG Paroxetine HCl (pAXil TAB) 20 mg DAILY PO 01/14/17 09:00 02/13/17 08:59 01/24/17 08:15 20 MG Pregabalin (Lyrica Cap) 150 mg BID PO 01/13/17 21:00 02/12/17 20:59 01/24/17 08:16 150 MG Roflumilast (Daliresp Tab) 500 mcg DAILY PO 01/14/17 09:00 02/13/17 08:59 01/24/17 08:16 500 MCG Senna/Docusate Sodium (Senokot S Tab) 1 tab HS PO 01/13/17 21:00 02/12/17 20:59 01/23/17 21:58 1 TAB Cholecalciferol (Vitamin D Tab) 6,000 inter.unit DAILYBB PO 01/14/17 06:30 02/13/17 06:59 01/24/17 05:52 6,000 INTER.UNIT Miscellaneous Information (Order Awaiting Action) 1 ea QS N/A 01/13/17 16:00 02/12/17 15:59 Miscellaneous (Remove Nicoderm Patch) 1 ea HS N/A 01/13/17 21:00 02/12/17 20:59 01/23/17 21:58 1 EA Budesonide (Pulmicort Respules 0.25MG/ 2ML Neb Soln) 0.25 mg BIDR INH 01/13/17 20:00 02/12/17 19:59 01/24/17 19:12 0.25 MG Tramadol HCl (Ultram Tab) 50 mg Q6 PRN PO 01/13/17 19:30 02/12/17 19:29 01/24/17 13:43 50 MG Metoprolol Tartrate (Lopressor Tab) 12.5 mg Q12 PO 01/17/17 09:00 02/12/17 20:59 01/24/17 08:15 12.5 MG Potassium Chloride (Klor-Con M10) 20 meq BID PO 01/17/17 08:00 02/16/17 07:59 01/24/17 08:16 20 MEQ Zolpidem Tartrate (Ambien Tab) 5 mg HSZ PRN PO 01/23/17 00:30 02/22/17 00:29 01/23/17 21:28 5 MG Prednisone (PredniSONE TAB) 60 mg DAILY PO 01/24/17 08:00 02/23/17 07:59 01/24/17 08:15 60 MG Loperamide HCl (Imodium Cap) 2 mg UD PRN PO 01/24/17 14:15 02/23/17 14:14 01/24/17 18:11 2 MG
[2017-01-24] MEDS: MONTELUKAST SOD 10 MG TAB PO SCH (20:49)
[2017-01-24] MEDS: ENOXAPARIN 40 MG/0.4 ML SYR SQ SCH (20:50)
[2017-01-24] MEDS: ZOLPIDEM TARTRATE 5 MG TAB PO PRN (21:01)
[2017-01-25] VITALS (7 sets, daily range): BP systolic 137–153; BP diastolic 74–78; PULSE 58–64; TEMP 36.6–36.8; O2SAT 96–98
[2017-01-25] MEDS: CHOLECALCIFEROL 1000 INTER.UNIT TAB PO SCH (06:02)
[2017-01-25] MEDS: PANTOprazole SOD 40 MG TAB PO SCH (06:02)
[2017-01-25] MEDS: TRAMADOL HCL 50 MG TAB PO PRN ×2 (06:31→13:43)
[2017-01-25 07:08] LABS: HEMATOCRIT 36.6 % (42-52); MEAN CELL VOLUME 87.6 fL (80-100); MEAN CORPUSCULAR HEMOGLOBIN 28.9 pg (25-34); MEAN CORPUSCULAR HGB CONC 33.1 g/dl (32-36); MEAN PLATELET VOLUME 10.3 fL (7.4-10.4); PLATELET COUNT 107 K/uL (130-400); RED BLOOD COUNT 4.18 M/uL (4.7-6.1); WHITE BLOOD COUNT 8.34 K/uL (4.8-10.8)
[2017-01-25] MEDS: FORMOTEROL FUMA NEBULIZER SOLN 20 MCG/2 ML VIAL INH SCH (07:26)
[2017-01-25] MEDS: BUDESONIDE 0.25 MG/2 ML VIAL (PULMICORT) INH SCH (07:26)
[2017-01-25] MEDS: FLUTICASONE PROPIONATE NA SPR 16 GM BTL NAE SCH (07:58)
[2017-01-25] MEDS: POTASSIUM CHLORIDE 10 MEQ TABCR PO SCH (07:58)
[2017-01-25] MEDS: GUAIFENESIN 600 MG TABCR PO SCH (07:59)
[2017-01-25] MEDS: PREGABALIN 150 MG CAP PO SCH (07:59)
[2017-01-25] MEDS: FINASTERIDE 5 MG TAB PO SCH (07:59)
[2017-01-25] MEDS: METOPROLOL TARTRATE 25 MG TAB PO SCH (07:59)
[2017-01-25] MEDS: NICOTINE 14 MG/24 HR TDSY TD SCH (07:59)
[2017-01-25] MEDS: FUROSEMIDE 40 MG TAB PO SCH (07:59)
[2017-01-25] MEDS: FERROUS GLUCONATE 324 MG TAB PO SCH ×2 (07:59→17:29)
[2017-01-25] MEDS: PAROXETINE 20 MG TAB PO SCH (07:59)
[2017-01-25] MEDS: CLOPIDOGREL BISULFATE 75 MG TAB PO SCH (07:59)
[2017-01-25] MEDS: ROFLUMILAST 500 MCG TAB PO SCH (07:59)
[2017-01-25] MEDS: ACETYLCYSTEINE 20% INHAL SOLN ***DISPENSED BY RESP. INH SCH ×2 (08:00→15:19)
[2017-01-25] MEDS: INSULIN ASPART 100 UNITS/ML 3 ML PEN SC SCH ×3 (09:10→17:49)
[2017-01-25] MEDS: ALBUT/IPRATROP 3MG/0.5MG NEB 3 ML VIAL INH SCH ×2 (11:21→15:23)
--- NOTE | 2017-01-25 13:25 | Progress Note ---
Medicine Progress Note Date & Time of Visit: Jan 25, 2017 at 13:21. Subjective patient seen resting in bed, in good spirits comfortable states his breathing is fine, no cough denies other symptoms states he feels fine overall states he is ready for discharge today no other symptoms Objective Last 8 Hrs Date Time Temp Pulse Resp B/P (MAP) Pulse Ox O2 Delivery O2 Flow Rate FiO2 01/25/17 11:22 59 18 98 Nasal Cannula 2.0 01/25/17 08:00 97 Nasal Cannula 2.0 01/25/17 07:34 36.6 58 18 137/74 (95) 97 Nasal Cannula 2.0 01/25/17 07:29 59 18 98 Nasal Cannula 2.0 Physical Exam: General- oriented x 3, not in distress, speaks in sentences with no effort Lungs-clear breath sounds bilaterally, no rales/wheezes Heart- regular rhythm; no murmur, normal rate Abdomen- normal bowel sounds, soft, nontender Extremities- no pretibial edema, no calf tenderness Neuro- alert, oriented x 3;no gross focal deficits Skin- warm & dry Laboratory Results: Last 24 Hours Test 01/24/17 16:13 01/24/17 19:45 01/25/17 06:36 01/25/17 07:42 Bedside Glucose 218 mg/dl 192 mg/dl 152 mg/dl White Blood Count 8.34 K/uL Red Blood Count 4.18 M/uL Hemoglobin 12.1 g/dL Hematocrit 36.6 % Mean Corpuscular Volume 87.6 fL Mean Corpuscular Hemoglobin 28.9 pg Mean Corpuscular Hemoglobin Concent 33.1 g/dl RDW Standard Deviation 57.8 fL RDW Coefficient of Variation 18.2 % Platelet Count 107 K/uL Mean Platelet Volume 10.3 fL Test 01/25/17 11:37 Bedside Glucose 252 mg/dl Assessment & Plan SHORTNESS OF BREATH CHRONIC HYPOXIC RESPIRATORY FAILURE -- Due to COPD exacerbation secondary to multifocal pneumonia, health care associated, possible aspiration Has underlying severe COPD and idiopathic sleep related nonobstructive alveolar hypoventilation S/p bronch on 01/15 -- gradually improved on 2 liters NC, baseline -- repeat CXR: improved continue nebs, taper solumedrol, continue zosyn -- discussed with Pulmonary -- completed Zosyn Solumedrol tapered, now on Prednisone 60mg po daily tolerating taper, respiratory status stable DIARRHEA -- resolved HX MILD DIASTOLIC DYSFUNCTION/ HX S/P AVR 03/2014 -- on Lasix 40 mg PO daily -- euvolemic HYPERTENSION BP stable Continue metoprolol DM TYPE 2 A1c 7.3 in 10/2016 resume Glimepiride monitor BSGs while on prednisone taper CEREBROVASCULAR DISEASE Continue Plavix, Statin ANXIETY/ DEPRESSION Continue Paxil and PRN Klonopin ? PULMONARY NODULE CTA chest- Solid 13 mm pulmonary nodule at the right lower lobe may be another site of infection/pneumonia. However, follow-up after treatment to ensure resolution is recommended. -- repeat CT chest as outpatient DVT PROPHYLAXIS given Lovenox CODE STATUS DNR DISPOSITION d/c today to Rehab ff up with PCP after discharge from Rehab Consultants: Pulmonary Procedures: Bronchoscopy Consultants: Pulmonary Procedures: Bronchoscopy Current Inpatient Medications: Current Inpatient Medications Medications (Trade) Dose Ordered Sig/Aj Route Start Time Stop Time Status Last Admin Dose Admin Albuterol/ Ipratropium (Duoneb) 3 ml QIDR INH 01/13/17 12:00 02/12/17 11:59 01/25/17 11:21 3 ML Enoxaparin Sodium (Lovenox Inj) 40 mg Q24H SQ 01/13/17 21:00 02/12/17 20:59 01/24/17 20:50 40 MG Acetaminophen (Tylenol Tab) 650 mg Q4H PRN PO 01/13/17 11:45 02/12/17 11:44 01/13/17 16:59 650 MG Ondansetron HCl (Zofran Inj) 4 mg Q6H PRN IV 01/13/17 11:45 02/12/17 11:44 01/19/17 08:53 4 MG Insulin Aspart (novoLOG ASPART) SLIDING SCALE If C... ACHS SC 01/13/17 16:00 02/12/17 15:59 01/25/17 12:34 4 UNITS Glucose (Glucose 40% Gel) 15-30 GRAMS 15 GRAMS... UD PRN PO 01/13/17 12:00 02/12/17 11:59 Glucose (Glucose Chew Tab) 4-8 Tablets 4 Tabl... UD PRN PO 01/13/17 12:00 02/12/17 11:59 Dextrose (Dextrose 50% 50ML Syringe) 25-50ML OF 50% DW IV FOR... UD PRN IV 01/13/17 12:00 02/12/17 11:59 Glucagon (Glucagon Inj) 1 mg UD PRN SQ 01/13/17 12:00 02/12/17 11:59 Acetylcysteine (Mucomyst 20% Inh Soln) 3 ml BIDR INH 01/13/17 20:00 02/12/17 19:59 01/25/17 08:00 3 ML Albuterol (Ventolin Hfa Inhaler) 2 puffs Q4H PRN INH 01/13/17 12:00 02/12/17 11:59 Atorvastatin Calcium (Lipitor Tab) 20 mg DAILYBD PO 01/13/17 16:00 02/12/17 15:59 01/24/17 17:45 20 MG Clonazepam (Klonopin Tab) 0.5 mg Q8H PRN PO 01/13/17 12:00 02/12/17 11:59 01/21/17 20:25 0.5 MG Clopidogrel Bisulfate (plAVix TAB) 75 mg DAILY PO 01/14/17 09:00 02/13/17 08:59 01/25/17 07:59 75 MG Ferrous Gluconate (Ferrous Gluconate Tab) 324 mg BIDM PO 01/13/17 17:00 02/12/17 17:59 01/25/17 07:59 324 MG Finasteride (Proscar Tab) 5 mg DAILY PO 01/14/17 09:00 02/13/17 08:59 01/25/17 07:59 5 MG Fluticasone Propionate (Flonase Nasal [place]) 2 sprays DAILY LISETTE 01/14/17 09:00 02/13/17 08:59 01/25/17 07:58 2 SPRAYS Formoterol Fumarate (Perforomist 20MCG/2ML Neb Soln) 20 mcg BIDR INH 01/13/17 20:00 02/12/17 19:59 01/25/17 07:26 20 MCG Furosemide (Lasix Tab) 40 mg DAILY PO 01/14/17 09:00 02/13/17 08:59 01/25/17 07:59 40 MG Guaifenesin (Mucinex Contr Rel Tab) 600 mg Q12 PO 01/13/17 21:00 02/12/17 20:59 01/25/17 07:59 600 MG Montelukast Sodium (Singulair Tab) 10 mg QPM PO 01/13/17 21:00 02/12/17 20:59 01/24/17 20:49 10 MG Nicotine (Nicoderm Cq 14MG Patch) 1 patch DAILY TD 01/14/17 09:00 02/13/17 08:59 01/25/17 07:59 1 PATCH Pantoprazole Sodium (Protonix Tab) 40 mg DAILYBB PO 01/14/17 06:30 02/13/17 06:59 01/25/17 06:02 40 MG Paroxetine HCl (pAXil TAB) 20 mg DAILY PO 01/14/17 09:00 02/13/17 08:59 01/25/17 07:59 20 MG Pregabalin (Lyrica Cap) 150 mg BID PO 01/13/17 21:00 02/12/17 20:59 01/25/17 07:59 150 MG Roflumilast (Daliresp Tab) 500 mcg DAILY PO 01/14/17 09:00 02/13/17 08:59 01/25/17 07:59 500 MCG Senna/Docusate Sodium (Senokot S Tab) 1 tab HS PO 01/13/17 21:00 02/12/17 20:59 01/23/17 21:58 1 TAB Cholecalciferol (Vitamin D Tab) 6,000 inter.unit DAILYBB PO 01/14/17 06:30 02/13/17 06:59 01/25/17 06:02 6,000 INTER.UNIT Miscellaneous Information (Order Awaiting Action) 1 ea QS N/A 01/13/17 16:00 02/12/17 15:59 Miscellaneous (Remove Nicoderm Patch) 1 ea HS N/A 01/13/17 21:00 02/12/17 20:59 01/24/17 20:50 1 EA Budesonide (Pulmicort Respules 0.25MG/ 2ML Neb Soln) 0.25 mg BIDR INH 01/13/17 20:00 02/12/17 19:59 01/25/17 07:26 0.25 MG Tramadol HCl (Ultram Tab) 50 mg Q6 PRN PO 01/13/17 19:30 02/12/17 19:29 01/25/17 06:31 50 MG Metoprolol Tartrate (Lopressor Tab) 12.5 mg Q12 PO 01/17/17 09:00 02/12/17 20:59 01/24/17 20:50 12.5 MG Potassium Chloride (Klor-Con M10) 20 meq BID PO 01/17/17 08:00 02/16/17 07:59 01/25/17 07:58 20 MEQ Zolpidem Tartrate (Ambien Tab) 5 mg HSZ PRN PO 01/23/17 00:30 02/22/17 00:29 01/24/17 21:01 5 MG Prednisone (PredniSONE TAB) 60 mg DAILY PO 01/24/17 08:00 02/23/17 07:59 01/25/17 07:59 60 MG Loperamide HCl (Imodium Cap) 2 mg UD PRN PO 01/24/17 14:15 02/23/17 14:14 01/24/17 18:11 2 MG
[2017-01-25] MEDS ORDERED: POTA10CA28 PO (13:33)
[2017-01-25] MEDS ORDERED: PRD10 PO (13:33)
[2017-01-25] MEDS ORDERED: LPR25 PO (13:33)
--- NOTE | 2017-01-25 13:37 | Discharge Instructions ---
Discharge Instructions Date of Service Jan 25, 2017. Admission Reason for Admission: Aspiration Pneumonia Discharge Discharge Diagnosis / Problem: PNEUMONIA, COPD EXACERBATION Discharge Goals Goal(s): Diagnostic testing, Therapeutic intervention Activity Recommendations Activity Level: Ambulates in room Therapies: Physical Therapy, Occupational Therapy, Speech Therapy . Additional Information Patient informed of condition: Yes Advance Directives: No (UNKNOWN) DNR: Yes Level of Care: Skilled Communicable Disease: No Prognosis: Stable Oxygen at (LPM): 2 LITERS VIA NASAL CANNULA AT ALL TIMES [place]nel[place] Catheter: No Instructions / Follow-Up Instructions / Follow-Up PLEASE TAPER PREDNISONE UNTIL USUAL 5MG PO DAILY. REPEAT POTASSIUM LEVEL AND CBC IN 2-3 DAYS (RE: HYPOKALEMIA, LOW PLATELETS). REPEAT CT CHEST OUTPATIENT TO FOLLOW UP PULMONARY NODULE. PLEASE REFER TO ACCOMPANYING HOSPITAL DISCHARGE SUMMARY FOR FURTHER DETAILS. FOLLOW UP WITH PRIMARY CARE PHYSICIAN IN 1 WEEK AFTER DISCHARGE FROM REHAB. SPEECH THERAPY RECOMMENDATIONS: Speech Therapy Discharge Instructions * 1.Mechanical soft diet and NECTAR thick liquids. NO straws. NO mixed consistencies (i.e., cold cereal in milk, soups that contain small pieces of meat/vegetables, and fruit such as oranges and watermelon). 2.STRICT aspiration precautions. Fully upright while eating and 30 minutes after meals. 3.Stringent oral care to include brushing all surfaces of the mouth and gums with a toothbrush and toothpaste prior to after meals, and before bed. 4.Safe swallow strategies: SMALL SINGLE sips of liquids, and us of a CHIN TUCK with each bite and sip of food. Hold liquid or chewed bolus in the mouth, while holding the bolus tuck the chin to the chest, keep the chin down and swallow. 5.Pt.would benefit from continued speech upon discharge for carryover of recommendations, and for further therapy to include generalized pharyngeal strengthening. Current Hospital Diet Patient's current hospital diet: AHA Diet (Heart Healthy), Diabetes Type 2 Diet Discharge Diet Recommended Diet: AHA Diet (Heart Healthy), Diabetes Type 2 Diet Diet Texture: Mechanical Soft (ground) (PLEASE REFER TO SPEECH THERAPY RECOMMENDATIONS NOTED IN INSTRUCTIONS SECTION ABOVE.) Liquid Consistency: [place] Thick Procedures Procedures Performed: S/P BRONCHOSCOPY Pending Studies Studies pending at discharge: yes List of pending studies: REPEAT POTASSIUM LEVEL AND CBC IN 2-3 DAYS (RE: HYPOKALEMIA, LOW PLATELETS). REPEAT CT CHEST OUTPATIENT TO FOLLOW UP PULMONARY NODULE. PLEASE REFER TO ACCOMPANYING HOSPITAL DISCHARGE SUMMARY FOR FURTHER DETAILS. Physician Orders On Transfer Special Precautions: PLEASE TAPER PREDNISONE UNTIL USUAL 5MG PO DAILY. REPEAT POTASSIUM LEVEL AND CBC IN 2-3 DAYS (RE: HYPOKALEMIA, LOW PLATELETS). REPEAT CT CHEST OUTPATIENT TO FOLLOW UP PULMONARY NODULE. PLEASE REFER TO ACCOMPANYING HOSPITAL DISCHARGE SUMMARY FOR FURTHER DETAILS. FOLLOW UP WITH PRIMARY CARE PHYSICIAN IN 1 WEEK AFTER DISCHARGE FROM REHAB. SPEECH THERAPY RECOMMENDATIONS: Speech Therapy Discharge Instructions * 1.Mechanical soft diet and NECTAR thick liquids. NO straws. NO mixed consistencies (i.e., cold cereal in milk, soups that contain small pieces of meat/vegetables, and fruit such as oranges and watermelon). 2.STRICT aspiration precautions. Fully upright while eating and 30 minutes after meals. 3.Stringent oral care to include brushing all surfaces of the mouth and gums with a toothbrush and toothpaste prior to after meals, and before bed. 4.Safe swallow strategies: SMALL SINGLE sips of liquids, and us of a CHIN TUCK with each bite and sip of food. Hold liquid or chewed bolus in the mouth, while holding the bolus tuck the chin to the chest, keep the chin down and swallow. 5.Pt.would benefit from continued speech upon discharge for carryover of recommendations, and for further therapy to include generalized pharyngeal strengthening. Laboratory Results Hemoglobin A1c Test 01/16/17 06:13 Range/Units Estimated Average Glucose 186 mg/dl Hemoglobin A1c 8.1 H 4.5-5.6 % Medical Emergencies . Who to Call and When: Medical Emergencies: If at any time you feel your situation is an emergency, please call 911 immediately. . Non-Emergent Contact Non-Emergency issues call your: Primary Care Provider Call Non-Emergent contact if: you have a fever, you have any medication questions . 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 "Provider Documentation" section prepared by Steven Harmon. . Core Measure Problem Core Measures: None
--- NOTE | 2017-01-25 13:49 | Discharge Summary ---
Discharge Summary Date of Service Jan 25, 2017. Discharge Summary Admission Date: Jan 13, 2017 at 11:49 Discharge Date: Jan 25, 2017 Discharge Disposition: Rehab Principal Diagnosis: ACUTE HYPOXIC RESPIRATORY FAILURE, SECONDARY TO MULTIFOCAL PNEUMONIA, COPD EXACERBATION Secondary Diagnoses/Problems: PLEASE REFER TO HOSPITAL COURSE BELOW. Procedures: Bronchoscopy by Dr. Ornelas 01/15/17 Procedure: Bronchoscopy with BAL Procedure note: After informed consent and timeout, the patient the Olympus fiberoptic flexible bronchoscope was inserted in the left nostril. The nasal and oropharynx were within normal limits. The vocal cords were inserted in the trachea visualized to the stephanie. There was whitish secretions coming from bilateral mainstem bronchi in the trachea. The right main bronchus was inserted and consisted of thick whitish secretions were suctioned until clear. The right upper lobe was inserted and inspected to the subsegmental level and no endobronchial lesions were seen. The bronchoscope was withdrawn and inserted into the right middle lobe which was also inspected to the subsegmental level no endobronchial lesions seen. The right lower lobe was inspected to the subsegmental level with thick secretions that were suctioned until clear. No endobronchial lesions were visualized. The bronchoscope was then inserted into the right middle lobe and BAL was taken. The BAL was sent for bacterial, fungal, AFB, viral cultures as well as cytology. The left mainstem bronchus was inserted there was again thick whitish secretions in the airway were suctioned until clear. The upper lobe and lingula were inspected to the subsegmental level no endobronchial lesions were seen. The left lower lobe was inserted and inspected and no endobronchial lesions were seen. The bronchial mucosa was friable and hemoptysis was present. Cold water saline lavage was administered with hemostasis. Patient tolerated the procedure well without any complications. A postprocedure x-ray was ordered. For moderate sedation patient received 2 of Versed and 50 of fentanyl at 10:20 AM on 10:42 AM respectively. Impression: Multifocal pneumonia Mucus plugging Hemoptysis (CHEST FOR PE) ANGIO WITH CLINICAL HISTORY: 76 years-old Male presenting with shortness of breath and clinical concern for pulmonary embolus. TECHNIQUE: Multidetector CT angiography of the chest was performed after administration of intravenous contrast. 3-D volumetric and/or maximum intensity projection (MIP) images were subsequently reconstructed for review. IV contrast: 119 mL of Optiray 320. A dose lowering technique was used consistent with the principles of ALARA (as low as reasonably achievable). COMPARISON: Chest x-ray performed earlier the same day. CT DOSE (mGy.cm): The estimated cumulative dose is 412.83 mGy.cm. FINDINGS: Childcare Aide topogram: Median sternotomy wires. Pulmonary vasculature: The study is adequate for assessment of the pulmonary vascular tree. No filling defect within the pulmonary arteries to suggest embolus. Main pulmonary artery not enlarged. No flattening of the interventricular septum. No intracardiac filling defect. Remaining chest: On soft tissue windows, normal thyroid and thoracic inlet. No axillary, supraclavicular, hilar, or mediastinal lymphadenopathy. Atherosclerosis of the aortic arch and major branch vessels. Common origin of the innominate and left common carotid arteries. Normal heart size. Prosthetic aortic valve. No pericardial or pleural effusion. Cholecystectomy clips. Biliary ductal dilatation centrally both intrahepatic and involving the common duct, possibly a reservoir effect in the post cholecystectomy state. Pancreatic parenchymal calcifications may indicate chronic pancreatitis. On lung windows, moderate apical predominant emphysema. Dependent consolidation in the left lower lobe and along the major fissure in the left upper lobe. Numerous scattered nodular opacities also noted elsewhere in the left lower lobe and to a lesser degree in the lingula. Solid pulmonary nodule at the dependent portion of the right lower lobe measuring 13 mm (series 4 image 64). Minimal subpleural reticulation also noted in the dependent portions of the right lower lobe. Old calcified granuloma noted at the right apex. Debris noted in the trachea and bilateral main stem bronchi. Diffuse bronchial wall thickening. On bone windows, degenerative changes of the thoracic spine. Well-healed sternotomy. IMPRESSION: 1. No evidence of pulmonary embolus. 2. Findings most consistent with multifocal pneumonia predominant involving the left lower lobe and to a lesser degree the lingula. The dependent distribution in combination with significant debris in the trachea and bilateral mainstem bronchi could suggest aspiration pneumonia as etiology. 3. Moderate apical predominant emphysema with associated bronchial wall thickening. 4. Solid 13 mm pulmonary nodule at the right lower lobe may be another site of infection/pneumonia. However, follow-up after treatment to ensure resolution is recommended. VIDEO SWALLOW CLINICAL HISTORY: 76 years-old Male presenting with Assess for aspiration. TECHNIQUE: Video fluoroscopic evaluation of swallowing was performed in the AP and lateral projections in conjunction with speech pathology. The patient was administered various textures, including nectar-thick and thin liquid barium, a barium coated wafer, and barium pudding. COMPARISON: None. FINDINGS: Intermittent silent aspiration with thin liquids. No aspiration with chin tuck maneuver. Silent aspiration also observed intermittently with nectar thick liquids. No aspiration or penetration with pudding consistency, however, intermittent silent aspiration of solids. Fluoroscopy dosage (mGy): Not available. Fluoroscopy time: 3.3 minutes. Number of fluoroscopic spot images: 0. IMPRESSION: 1. Intermittent silent aspiration of multiple textures as above. 2. Please see the speech pathologist report for detailed findings and recommendations. [facility] STUDY SUMMARY/RECOMMENDATIONS: This patient presents with moderate-severe itzel-pharyngeal dysphagia. The following is recommended: 1.Mechanical soft diet and NECTAR thick liquids. NO straws. NO mixed consistencies (i.e., cold cereal in milk, soups that contain small pieces of meat/vegetables, and fruit such as oranges and watermelon). 2.STRICT aspiration precautions. Fully upright while eating and 30 minutes after meals. 3.Stringent oral care to include brushing all surfaces of the mouth and gums with a toothbrush and toothpaste prior to after meals, and before bed. 4.Safe swallow strategies: SMALL SINGLE sips of liquids, and us of a CHIN TUCK with each bite and sip of food. Hold liquid or chewed bolus in the mouth, while holding the bolus tuck the chin to the chest, keep the chin down and swallow. 5.Speech will continue to follow as an inpatient for assessment of tolerance and carryover of diet/strategies. Would benefit from continued speech upon discharge for carryover of recommendations, and for further therapy to include generalized pharyngeal strengthening. Consultations: Pulmonary Dr. Cassie Ornelas/Dr. Siddiqui Pending Studies/Follow-Up: PLEASE TAPER PREDNISONE UNTIL USUAL 5MG PO DAILY. REPEAT POTASSIUM LEVEL AND CBC IN 2-3 DAYS (RE: HYPOKALEMIA, LOW PLATELETS). REPEAT CT CHEST OUTPATIENT TO FOLLOW UP PULMONARY NODULE. PLEASE REFER TO HOSPITAL COURSE BELOW FOR FURTHER DETAILS. FOLLOW UP WITH PRIMARY CARE PHYSICIAN IN 1 WEEK AFTER DISCHARGE FROM REHAB. Medication Reconciliation New Medications: Prednisone (Prednisone) 10 Mg Tab 1 TAB PO UD for 30 Days, #30 TABS 2 Refills take 4 tabs po daily x 2 days, then take 2 tabs po daily x 2 days, then take 1 tab po daily x 2 days, then take 1/2 tab po daily Metoprolol Tartrate (Lopressor) 25 Mg Tab 12.5 MG PO Q12 for 30 Days, #30 TAB 2 Refills Potassium Chloride (Micro-K Ext Rel) 10 Meq Capcr 20 MEQ PO DAILY for 30 Days, #30 TABS 1 Refill Continued Medications: Acetylcysteine (Acetylcysteine) 20 % Kasey 3 ML INH BID Albuterol Hfa (Ventolin Hfa) 200 Puffs/22918 Mcg Aers 2 PUFFS INH Q4H PRN for Shortness of Breath Atorvastatin (Lipitor) 20 Mg Tab 20 MG PO DAILYBD Budesonide (Pulmicort Respules 0.25MG/2ML) 0.25 Mg/2 Ml Nebu 0.25 MG INH DAILY Cholecalciferol (Vitamin D3) 2,000 Unit Cap 6000 UNITS PO DAILYBB Clonazepam (Klonopin) 0.5 Mg Tab 0.5 MG PO Q8H PRN for Anxiety Clopidogrel (Plavix) 75 Mg Tab 75 MG PO DAILY Ferrous Gluconate (Ferrous Gluconate) 324 Mg Tab 324 MG PO BIDM Finasteride (Proscar) 5 Mg Tab 5 MG PO DAILY Fluticasone Propionate (Nasal) (Flonase Allergy Relief) 50 Mcg/Act Spr 2 SPRAY LISETTE DAILY Formoterol Fumarate (Perforomist) 20 Mcg/2 Ml Neb 20 MCG INH BID Furosemide (Lasix) 40 Mg Tab 40 MG PO DAILY Glimepiride (Glimepiride) 2 Mg Tab 2 MG PO BIDM Guaifenesin La (Guaifenesin Er) 600 Mg Tabcr 600 MG PO Q12H Insulin Aspart (Novolog Flexpen) 100 Units/Ml Inj 1 DOSE SQ ACHS PER SLIDING SCALE Ipratropium-Albuterol (Duoneb) 3 Ml Nebu 3 ML INH QID PRN for Shortness of Breath Montelukast Sodium (Singulair) 10 Mg Tab 10 MG PO QPM Nicotine (Nicoderm Cq 14MG Patch) 14 Mg/24 Hr Dis 1 PATCH TD DAILY Pantoprazole (Protonix) 40 Mg Tab 40 MG PO DAILYBB Paroxetine (Paxil) 20 Mg Tab 20 MG PO DAILY Pregabalin (Lyrica) 75 Mg Cap 150 MG PO BID PT TAKES X2 75MG TABS FOR 150MG DOSE Roflumilast (Daliresp) 500 Mcg Tab 500 MCG PO DAILY Senna/Docusate Sod (Senokot S) 1 Tab Tab 1 TAB PO HS Umeclidinium Toyah (Incruse Ellipta) 62.5 Mcg/Inh Inh 62.5 MCG INH DAILY Discontinued Medications: Docusate Sodium (Docusate Sodium) 100 Mg Cap 100 MG PO BID Levofloxacin (Levaquin) 250 Mg Tab 750 MG PO DAILY Metoprolol Tartrate (Lopressor) (Lopressor) 25 Mg Tab 25 MG PO Q12H Prednisone (Prednisone Tab) 20 Mg Tab 20 MG PO UD Taper as directed Admission Information HPI (per Admitting provider): This is a 76 y/o male with PMH of chronic respiratory failure due to severe COPD , idiopathic sleep related nonobstructive alveolar hypoventilation, hx grade I diastolic dysfunction, hx bicuspid AV with s/p bioprosthetic AVR 03/2014, HTN , DM type 2, anxiety, and other problems listed below who presents to the ED for shortness of breath. Patient was recently admitted to [facility] from 01/05/17 through 01/12/17 (yesterday) for COPD exacerbation due to left upper and lower lobe pneumonia. He was treated with IV ceftriaxone and azithromycin, IV Solu-Medrol, and nebulizer treatments. He tested positive for parainfluenza virus. He was seen by pulmonology. He used BiPAP PRN. Usually on BiPAP HS.Was also seen by psych for increased anxiety and meds were adjusted. Was discharged to [facility] yesterday on Levaquin and prednisone taper. His lungs were clear yesterday per discharge summary and patient states he was feeling better yesterday. Then this morning he became SOB while at rest and was sent to the ED. Also admits to ROSALES and orthopnea. Patient reports feeling better after Xopenex neb in ER. He was also treated with IV Zosyn, Levaquin, vancomycin, and IV Lasix 40 mg. He reports cough has been improving. Sputum is mostly clear but sometimes green. Has associated rhinorrhea. Reports poor PO intake due to low appetite. Denies swallowing difficulty or kya aspiration. Denies fever, chills, chest pain, N/V/D, dysuria, LE edema. Physical Exam (per Admitting): General Appearance: WD/WN, + pertinent finding (alert 76 year old male, appears acutely ill, lying in bed, not in distress) Head: normocephalic, atraumatic Eyes: normal inspection, PERRL, EOMI, sclerae normal ENT: pharynx normal, + pertinent finding (hard of hearing) Neck: supple, trachea midline Respiratory/Chest: no respiratory distress, no accessory muscle use, + rales (diffuse bilateral), + wheezing, + pertinent finding (+ upper respiratory rattling. speaks in short sentences. saturating well on 2 liters NC. ) Cardiovascular: regular rate, rhythm, normal peripheral pulses Abdomen/GI: normal bowel sounds, non tender, soft Extremities/Musculoskelatal: no calf tenderness, normal capillary refill, no pedal edema Neurologic/Psych: alert, normal mood/affect, oriented x 3, + pertinent finding (no focal deficit on gross examination) Skin: normal color, warm/dry Hospital Course ACUTE HYPOXIC RESPIRATORY FAILURE, SECONDARY TO MULTILOBAR PNEUMONIA, COPD EXACERBATION -- Due to COPD exacerbation secondary to multifocal pneumonia, health care associated, possible aspiration Has underlying severe COPD and idiopathic sleep related nonobstructive alveolar hypoventilation - CT Chest: IMPRESSION: 1. No evidence of pulmonary embolus. 2. Findings most consistent with multifocal pneumonia predominant involving the left lower lobe and to a lesser degree the lingula. The dependent distribution in combination with significant debris in the trachea and bilateral mainstem bronchi could suggest aspiration pneumonia as etiology. 3. Moderate apical predominant emphysema with associated bronchial wall thickening. 4. Solid 13 mm pulmonary nodule at the right lower lobe may be another site of infection/pneumonia. However, follow-up after treatment to ensure resolution is recommended. -- S/p bronchoscopy on 01/15/[address] Cassie Ornelas : (+) multifocal pneumonia , mucus plugging, hemoptysis -- placed on IV Zosyn x 10 days continued on nebs, tapering solumedrol -- transitioned to Prednisone taper, starting at 60mg until usual 5mg po daily repeat CXR improved, patient also clinically improved -- continue Prednisone taper and usual bronchodilators follow speech therapy instructions re: dysphagia, aspiration risk 1.Mechanical soft diet and NECTAR thick liquids. NO straws. NO mixed consistencies (i.e., cold cereal in milk, soups that contain small pieces of meat/vegetables, and fruit such as oranges and watermelon). 2.STRICT aspiration precautions. Fully upright while eating and 30 minutes after meals. 3.Stringent oral care to include brushing all surfaces of the mouth and gums with a toothbrush and toothpaste prior to after meals, and before bed. 4.Safe swallow strategies: SMALL SINGLE sips of liquids, and us of a CHIN TUCK with each bite and sip of food. Hold liquid or chewed bolus in the mouth, while holding the bolus tuck the chin to the chest, keep the chin down and swallow. 5.Pt.would benefit from continued speech upon discharge for carryover of recommendations, and for further therapy to include generalized pharyngeal strengthening. DIARRHEA -- resolved HX MILD DIASTOLIC DYSFUNCTION/ HX S/P AVR 03/2014 -- on Lasix 40 mg PO daily -- euvolemic HYPERTENSION BP stable Continue metoprolol DM TYPE 2 A1c 7.3 in 10/2016 resume Glimepiride monitor BSGs while on prednisone taper CEREBROVASCULAR DISEASE Continue Plavix, Statin ANXIETY/ DEPRESSION Continue Paxil and PRN Klonopin PULMONARY NODULE CTA chest- Solid 13 mm pulmonary nodule at the right lower lobe may be another site of infection/pneumonia. However, follow-up after treatment to ensure resolution is recommended. -- repeat CT chest as outpatient DVT PROPHYLAXIS given Lovenox CODE STATUS DNR DISPOSITION d/c today to Rehab ff up with PCP after discharge from Rehab Consultants: Pulmonary Procedures: Bronchoscopy Total time spent on discharge = 45 minutes This includes examination of the patient, discharge planning, medication reconciliation, and communication with other providers. Discharge Instructions Discharge Instructions Date of Service Jan 25, 2017. Admission Reason for Admission: Aspiration Pneumonia Discharge Discharge Diagnosis / Problem: PNEUMONIA, COPD EXACERBATION Discharge Goals Goal(s): Diagnostic testing, Therapeutic intervention Activity Recommendations Activity Level: Ambulates in room Therapies: Physical Therapy, Occupational Therapy . Additional Information Patient informed of condition: Yes Advance Directives: No (UNKNOWN) DNR: Yes Level of Care: Skilled Communicable Disease: No Prognosis: Stable Oxygen at (LPM): 2 LITERS VIA NASAL CANNULA AT ALL TIMES Ornelas Catheter: No Instructions / Follow-Up Instructions / Follow-Up PLEASE TAPER PREDNISONE UNTIL USUAL 5MG PO DAILY. REPEAT POTASSIUM LEVEL AND CBC IN 2-3 DAYS (RE: HYPOKALEMIA, LOW PLATELETS). REPEAT CT CHEST OUTPATIENT TO FOLLOW UP PULMONARY NODULE. PLEASE REFER TO ACCOMPANYING HOSPITAL DISCHARGE SUMMARY FOR FURTHER DETAILS. FOLLOW UP WITH PRIMARY CARE PHYSICIAN IN 1 WEEK AFTER DISCHARGE FROM REHAB. SPEECH THERAPY RECOMMENDATIONS: Speech Therapy Discharge Instructions * 1.Mechanical soft diet and NECTAR thick liquids. NO straws. NO mixed consistencies (i.e., cold cereal in milk, soups that contain small pieces of meat/vegetables, and fruit such as oranges and watermelon). 2.STRICT aspiration precautions. Fully upright while eating and 30 minutes after meals. 3.Stringent oral care to include brushing all surfaces of the mouth and gums with a toothbrush and toothpaste prior to after meals, and before bed. 4.Safe swallow strategies: SMALL SINGLE sips of liquids, and us of a CHIN TUCK with each bite and sip of food. Hold liquid or chewed bolus in the mouth, while holding the bolus tuck the chin to the chest, keep the chin down and swallow. 5.Pt.would benefit from continued speech upon discharge for carryover of recommendations, and for further therapy to include generalized pharyngeal strengthening. Current Hospital Diet Patient's current hospital diet: AHA Diet (Heart Healthy), Diabetes Type 2 Diet Discharge Diet Recommended Diet: AHA Diet (Heart Healthy), Diabetes Type 2 Diet Diet Texture: Mechanical Soft (ground) (PLEASE REFER TO SPEECH THERAPY RECOMMENDATIONS NOTED IN INSTRUCTIONS SECTION ABOVE.) Liquid Consistency: [place] Thick Procedures Procedures Performed: S/P BRONCHOSCOPY Pending Studies Studies pending at discharge: yes List of pending studies: REPEAT POTASSIUM LEVEL AND CBC IN 2-3 DAYS (RE: HYPOKALEMIA, LOW PLATELETS). REPEAT CT CHEST OUTPATIENT TO FOLLOW UP PULMONARY NODULE. PLEASE REFER TO ACCOMPANYING HOSPITAL DISCHARGE SUMMARY FOR FURTHER DETAILS. Physician Orders On Transfer Special Precautions: PLEASE TAPER PREDNISONE UNTIL USUAL 5MG PO DAILY. REPEAT POTASSIUM LEVEL AND CBC IN 2-3 DAYS (RE: HYPOKALEMIA, LOW PLATELETS). REPEAT CT CHEST OUTPATIENT TO FOLLOW UP PULMONARY NODULE. PLEASE REFER TO ACCOMPANYING HOSPITAL DISCHARGE SUMMARY FOR FURTHER DETAILS. FOLLOW UP WITH PRIMARY CARE PHYSICIAN IN 1 WEEK AFTER DISCHARGE FROM REHAB. SPEECH THERAPY RECOMMENDATIONS: Speech Therapy Discharge Instructions * 1.Mechanical soft diet and NECTAR thick liquids. NO straws. NO mixed consistencies (i.e., cold cereal in milk, soups that contain small pieces of meat/vegetables, and fruit such as oranges and watermelon). 2.STRICT aspiration precautions. Fully upright while eating and 30 minutes after meals. 3.Stringent oral care to include brushing all surfaces of the mouth and gums with a toothbrush and toothpaste prior to after meals, and before bed. 4.Safe swallow strategies: SMALL SINGLE sips of liquids, and us of a CHIN TUCK with each bite and sip of food. Hold liquid or chewed bolus in the mouth, while holding the bolus tuck the chin to the chest, keep the chin down and swallow. 5.Pt.would benefit from continued speech upon discharge for carryover of recommendations, and for further therapy to include generalized pharyngeal strengthening.
[2017-01-25] MEDS: ATORVASTATIN 20 MG TAB PO SCH (17:29)
[2017-02-10 11:15] LABS: HERPES SIMPLEX CULT SOURCE OTHER-RML BAL; HERPES SIMPLEX VIRUS CULT NOT ISOLATED (NOT ISOLATED)
== END 2017-01-25 18:34 | DRG 166 ==
LOC: EDBD 08:31 → C.EDB 08:34 → UNDOADMIN 11:49 → C.MED 11:49 → EDBEDREQ 11:54 → ENRESERV 12:38 → C.MED 01-14 15:14 → C.MS4W 01-14 15:14
PROVIDERS: ADMIT Internal Medicine; ATTEND Internal Medicine
PROC: 0BJL8ZZ Inspection of Left Lung, Via Natural or Artificial Opening Endoscopic (ICD-10-PCS; principal; 2017-01-15)
PROC: 0B9D8ZX Drainage of Right Middle Lung Lobe, Via Natural or Artificial Opening Endoscopic, Diagnostic (ICD-10-PCS; principal; 2017-01-15)
DX: J69.0 Pneumonitis due to inhalation of food and vomit (principal); B37.1 Pulmonary candidiasis; J96.21 Acute and chronic respiratory failure with hypoxia; R04.2 Hemoptysis; I50.30 Unspecified diastolic (congestive) heart failure; J44.1 Chronic obstructive pulmonary disease with (acute) exacerbation; J44.9 Chronic obstructive pulmonary disease, unspecified; R13.12 Dysphagia, oropharyngeal phase; Y95 Nosocomial condition; G47.34 Idiopathic sleep related nonobstructive alveolar hypoventilation; I11.0 Hypertensive heart disease with heart failure; E11.40 Type 2 diabetes mellitus with diabetic neuropathy, unspecified; I67.9 Cerebrovascular disease, unspecified; F41.9 Anxiety disorder, unspecified; F32.9 Major depressive disorder, single episode, unspecified; R91.1 Solitary pulmonary nodule; R19.7 Diarrhea, unspecified; E78.5 Hyperlipidemia, unspecified; N40.0 Benign prostatic hyperplasia without lower urinary tract symptoms; F17.220 Nicotine dependence, chewing tobacco, uncomplicated; Z66 Do not resuscitate; Z95.2 Presence of prosthetic heart valve; Z87.01 Personal history of pneumonia (recurrent); Z86.14 Personal history of Methicillin resistant Staphylococcus aureus infection; Z86.73 Personal history of transient ischemic attack (TIA), and cerebral infarction without residual deficits; Z85.51 Personal history of malignant neoplasm of bladder; Z79.2 Long term (current) use of antibiotics; Z79.4 Long term (current) use of insulin; Z79.51 Long term (current) use of inhaled steroids; Z79.84 Long term (current) use of oral hypoglycemic drugs; Z88.6 Allergy status to analgesic agent